=== PATIENT | female | born 1940 | race Caucasian/White ===

== ENCOUNTER → 2017-10-27 | Outpatient (CLI) | payer OTHER | END | disposition home or self-care (01) | LOC: OIH 14:34 | PROVIDERS: ATTEND Internal Medicine Cardiovascular Disease | DX: Z13.6 Encounter for screening for cardiovascular disorders (principal) | CPT/HCPCS: 75571 ==

== ENCOUNTER → 2024-03-24 | Outpatient (CLI) | payer MEDICARE ==
[~2024-03-24] MED LIST: IOHEXOL 350 MG/ML 100ML INFUS..BTL IV ONE; metoPROLOL tartRATE 1 MG/ML 5ML VIAL IV ONE
== END | disposition home or self-care (01) ==
LOC: RAH 08:02
PROVIDERS: ATTEND Internal Medicine Cardiovascular Disease
DX: R06.02 Shortness of breath (principal)
CPT/HCPCS: 75574; J3490; Q9967

== ENCOUNTER → 2024-08-23 | Outpatient (CLI) | payer MEDICARE ==
[2024-08-23 08:01] LABS: BASOPHILS # (AUTO) 0.07 K/uL (0.00-0.20); EOSINOPHILS # (AUTO) 0.09 K/uL (0.00-0.70); EOSINOPHILS % (AUTO) 1.3 % (0.0-8.0); HEMATOCRIT 45.8 % (36-48); IMMATURE GRANULOCYTE ABSOLUTE 0.01 K/uL (0-1); LYMPHOCYTES # (AUTO) 1.5 K/uL (1.0-4.8); LYMPHOCYTES % (AUTO) 21.8 % (21.0-51.0); MEAN CORPUSCULAR HEMOGLOBIN 30.5 pg (27.0-33.0); MEAN CORPUSCULAR HGB CONC 33.2 g/dL (32.0-36.0); MEAN CORPUSCULAR VOLUME 91.8 fL (79-99); MONOCYTES # (AUTO) 0.5 K/uL (0.1-1.0); MONOCYTES % (AUTO) 7.8 % (3.0-13.0); NEUTROPHILS # (AUTO) 4.7 K/uL (1.8-7.7); PLATELET COUNT (AUTO) 113 K/uL (130-400); RED BLOOD CELL COUNT(AUTO) 4.99 MIL/uL (4.00-5.50); RED CELL DISTRIBUTION WIDTH 13.1 % (11.0-15.5)
[2024-08-23 08:17] LABS: HEMOGLOBIN A1C 5.6 % (4.0-6.0)
[2024-08-23 08:22] LABS: ALBUMIN 3.5 g/dL (3.5-5.0); BILIRUBIN,DIRECT 0.1 mg/dL (0.0-0.3); BILIRUBIN,TOTAL 0.5 mg/dL (0.2-1.0); CREATININE 0.7 mg/dL (0.5-1.0); POTASSIUM 3.6 mmol/L (3.5-5.1); THYROID STIMULATING HORMONE 18.29 uIU/mL (0.36-3.74); TOTAL PROTEIN, SERUM 8.1 g/dL (6.0-8.3)
== END | disposition home or self-care (01) ==
LOC: LAB 07:27
PROVIDERS: ATTEND Internal Medicine Endocrinology, Diabetes & Metabolism
DX: C73 Malignant neoplasm of thyroid gland (principal); I10 Essential (primary) hypertension; E78.2 Mixed hyperlipidemia; R06.02 Shortness of breath; R73.09 Other abnormal glucose
CPT/HCPCS: 36415; 80053; 80061; 80076; 83036; 84439; 84443; 85025; 86800

== ENCOUNTER → 2024-08-25 | Outpatient (CLI) | payer MEDICARE ==
[~2024-08-25] MED LIST changes: +GADOTERATE MEGLUMINE 10 MMOL/20 ML VIAL IV ONE; -IOHEXOL 350 MG/ML 100ML INFUS..BTL IV ONE; -metoPROLOL tartRATE 1 MG/ML 5ML VIAL IV ONE
--- NOTE | 2024-08-25 15:59 | HMCIMG ---
MRI LEFT HINDFOOT/ANKLE WITHOUT AND WITH CONTRAST INDICATION: Localized mass/lump left ankle. COMPARISON: None TECHNIQUE: Long and short axis fat and water weighted sequences were obtained through the left ankle before and after the intravenous administration of 15 mL of Clariscan contrast material. FINDINGS: High ankle ligaments appear unremarkable. Anterior and posterior talofibular ligaments are intact. Deltoid ligament complex appears normal. Calcaneofibular ligament is intact. Abnormal coalescent high signal abnormality noted within the distal posterior tibial tendon at its navicular attachment as well as plantar slip medial navicular bone attachment (total length of involvement = 3.5 cm), and discrete subcentimeter interstitial linear high signal abnormality is present centrally within the navicular bone attachment fibers and more coalescent-appearing 3.0 cm long linear high signal within the central fibers of the plantar slip. Mild subjacent medial navicular bone reactive marrow edema without avulsion fracture. Trace subsheath fluid along the anterior tibialis tendon near the level of the navicular bone without subjacent tendinopathy or tear. Trace subsheath fluid along the supramalleolar medial tendon group without tendinopathy or tear. Trace subsheath fluid along a short-segment of the inframalleolar lateral tendon group without subjacent tendinopathy or tear. Posterior fibular groove is well formed. Generalized nominal midfoot osteoarthropathy. 1.8 cm aggregate of subcortical degenerative cysts along the superior/dorsal articular surface of the anterior calcaneal process, including extension into along the angle of the same, and similar changes on both sides of the anterior and posterior articular surfaces of the posteromedial talocalcaneal articulation. Achilles tendon and plantar fascia are intact. Kager's fat pad is well maintained. Subcentimeter plantar calcaneal spur without plantar fasciitis. Small joint effusion. No abnormal soft tissue mass or ganglion noted. Talar dome is intact without osteochondral lesion. Ankle mortise and tibial plafond are well maintained. Sinus canal is patent. No evidence for coalition. No evidence for muscle atrophy or myoedema. No evidence for any abnormal enhancement. No evidence for fracture. IMPRESSION: 1. Coalescent insertional distal posterior tibial tendinopathy, including superimposed subcentimeter linear interstitial microtear within the central fibers of the navicular bone attachment and more coalescent linear signal alteration, perhaps evolving longitudinal tear through the plantar slip, without avulsion fracture. 2. Perhaps compensatory trace of sheath fluid involving the anterior, medial, and lateral tendon group as described. 3. Degenerative changes as described. 4. Small joint effusion.
== END | disposition home or self-care (01) ==
LOC: RAH 13:58
PROVIDERS: ATTEND Student in an Organized Health Care Education/Training Program
DX: M89.472 Other hypertrophic osteoarthropathy, left ankle and foot (principal); R22.42 Localized swelling, mass and lump, left lower limb
CPT/HCPCS: 73723; A9575

== ENCOUNTER → 2024-11-29 | Outpatient (CLI) | payer MEDICARE ==
[~2024-11-29] MED LIST changes: +AMLO-257 PO; +APIX5TAB PO; +ATOR40TA71 PO; +CELE-146 PO; +CETI10TA57 PO; +FLUT16H NS; -GADOTERATE MEGLUMINE 10 MMOL/20 ML VIAL IV ONE; +LEVO125C5 PO; +LISI40TA15 PO; +METO50TA18 PO; +PROM118S5 PO
[2024-11-29 10:52] LABS: INR 1.04 (0.85-1.15)
[2024-11-29 10:53] LABS: PARTIAL THROMBOPLASTIN TIME 30.2 SEC (26.3-35.5)
--- NOTE | 2024-11-29 11:30 | NUR ---
U/S GD LT BREAST BX PROCEDURE PERFORMED BY DR Josafat EVANGELISTA. PUNCTURE SITE LT BREAST AND PATIENT TOLERATED PROCEDURE WELL. SPECIMEN X 3 COLLECTED AND SENT TO LAB. TISSUE MARKER DEPLOYED AT END. END OF PROCEDURE AT 1110. BIOPSY NEEDLE REMOVED AND DRESSING APPLIED. NO BLEEDING NOTED. DISCHARGE INSTRUCTIONS GIVEN TO PATIENT AND VERBALIZED UNDERSTANDING. DISCHARGED VIA AMBULATORY AAO X3 WITH NO C/O PAIN.
--- NOTE | 2024-11-29 12:13 | HMCIMG ---
Ultrasound-guided breast biopsy HISTORY: Left breast 12:00 position lesion Case done by Dr. Frank TECHNIQUE: Informed consent was obtained after explaining the procedure and potential complications to the patient. Timeout performed. All elements of maximal sterile barrier technique, including hand hygiene and cutaneous antisepsis were used. The breast was prepped and draped in a sterile fashion. Local anesthesia was applied and under ultrasound guidance a needle introducer was advanced into the lesion. Then, 3 passes were made with a Bard 14-gauge coring needle. This was followed by placement of a metallic marker (clip). Completion images showed no hemorrhage. Sterile dressing applied. Patient tolerated the procedure well and was discharged home in good condition. Complications: None Blood loss: < 5 mL. IMPRESSION: Breast nodule core biopsy and marker placement.
== END | disposition home or self-care (01) ==
LOC: RAH 09:40
PROVIDERS: ATTEND Internal Medicine
DX: R92.8 Other abnormal and inconclusive findings on diagnostic imaging of breast (principal); N63.20 Unspecified lump in the left breast, unspecified quadrant; I48.91 Unspecified atrial fibrillation; D68.69 Other thrombophilia; I12.9 Hypertensive chronic kidney disease with stage 1 through stage 4 chronic kidney disease, or unspecified chronic kidney disease; N18.30 Chronic kidney disease, stage 3 unspecified; E03.9 Hypothyroidism, unspecified; E78.49 Other hyperlipidemia; N64.4 Mastodynia; Z79.01 Long term (current) use of anticoagulants; Z79.899 Other long term (current) drug therapy
CPT/HCPCS: 19083; 85610; 85730; 88361; 36415; 88305; 88342; 88341; A4215 ×2

== ENCOUNTER 2025-01-27 22:42 | Inpatient (IN) | payer MEDICARE ==
[~2025-01-27] VITALS: Ht 162.6 cm; Wt 72.4 kg
[~2025-01-27 22:42] MED LIST changes: -ATOR40TA71 PO; -CELE-146 PO; -FLUT16H NS; -LEVO125C5 PO; -METO50TA18 PO
--- NOTE | 2025-01-27 22:59 | NUR ---
UPON ARRIVAL TO ED, PATIENT NOTED TO HAVE [address] TO THE LEFT CHEST AREA POST LEFT SIDED MASTECTOMY. DRAINS PATENT. SURROUNDING SKIN CLEAN, DRY, AND INTACT. PT DENIES PAIN AT DRAIN SITES AT THIS TIME.
--- NOTE | 2025-01-27 22:59 | NUR ---
UPON ARRIVAL TO THE ED, PATIENT NOTED TO HAVE AN 16 FR INDWELLING MELARA CATHETER IN PLACE. MELARA TUBING PATENT AND DRAINING TO GRAVITY DRAINAGE BAG. URINE NOTED TO BE TEJAL. NO SIGNS OF LEAKAGE OR KINKING OF TUBING OBSERVED. PT DENIES ANY DISCOMFORT AT THIS TIME.
[2025-01-27 23:17] LABS: IMMATURE GRANULOCYTE ABSOLUTE 0.08 K/uL (0-1); NUCLEATED RED BLOOD CELLS 0.0 % (0.0-0.19); PLATELET COUNT (AUTO) 90 K/uL (130-400); RED BLOOD CELL COUNT(AUTO) 2.67 MIL/uL (4.00-5.50); RED CELL DISTRIBUTION WIDTH 17.4 % (11.0-15.5); WHITE BLOOD COUNT (AUTO) 8.7 K/uL (4.8-10.8)
[2025-01-27 23:23] LABS: CREATININE 0.5 mg/dL (0.5-1.0); GLOMERULAR FILTR. RATE CALC 91.0 mL/min (>90); GLUCOSE,RANDOM 114.0 mg/dL (70-105); SODIUM SERUM 136.0 mmol/L (136-145); UREA NITROGEN, BLOOD 9.0 mg/dL (7-18)
[2025-01-27 23:27] LABS: ASPARTATE AMINOTRANSFERASE 29.0 U/L (10-37); TOTAL PROTEIN, SERUM 5.5 g/dL (6.0-8.3)
--- NOTE | 2025-01-27 23:36 | ERN ---
General Chief Complaint: Sepsis Stated Complaint: FEVER, SOB, SWELLING TO L SHOULDER S/P MASTECTOMY Time Seen by MD: 22:55 Source: patient History of Present Illness Initial Comments 84-year-old female comes in with fever and tachycardia and was made a sepsis alert. She is about two weeks out from a bilateral mastectomy. She is complaining of left shoulder pain and weakness. Allergies: Coded Allergies: No Known Allergies (Unverified Allergy, Unknown, 12/10/24) Home Meds Reported Medications D-Methorphan Hb/Prometh HCl (Promethazine-Dm Syrup) 6.25 Mg-15 Mg/5 Ml Syrup, 5 ML PO Q4HPRN PRN for cough for 4 Days, #120 ML 0 Refills 12/10/24 Cetirizine HCl (Cetirizine HCl) 10 Mg Tablet, 10 MG PO DAILY, TAB 12/10/24 Apixaban (Eliquis) 5 Mg Tablet, 5 MG PO BID, TAB 12/10/24 Lisinopril (Lisinopril) 40 Mg Tablet, 40 MG PO DAILY, TAB 12/10/24 Amlodipine Besylate (Amlodipine Besylate) 5 Mg Tablet, 5 MG PO DAILY, TAB 12/10/24 Past Medical History Past Medical History: A-Fib, Arthritis, Cancer, Diabetes-Type II, GERD, High Cholesterol, Hypertension, Hypothyroid Medical History Other: BREAST CA,NEOPLASM OF THYROID,SLEEP APNEA Past Surgical History: Appendectomy, Hysterectomy, Other Surgical History Other: L MASTECTOMY, L KNEE REPLACEMENT,THYROIDECTOMY Constitutional: (+) fever, (+) malaise, (+) weakness EENTM: (-) eye pain, (-) blurred vision, (-) tearing, (-) double vision, (-) ear pain, (-) ear discharge, (-) nose pain, (-) nose congestion, (-) throat elysia n, (-) Throat swelling, (-) mouth pain, (-) tooth pain, (-) mouth swelling, (-) other documentation Respiratory: (-) cough, (-) orthopnea, (-) short of breath, (-) stridor, (-) wheezing, (-) other documentation Cardiovascular: (-) chest pain, (-) edema, (-) palpitations, (-) syncope, (-) dyspnea on exertion, (-) other documentation Gastrointestinal/Abdominal: (-) nausea, (-) vomiting, (-) diarrhea, (-) abdominal pain, (-) abdominal distention, (-) constipation, (-) rectal bleeding, (-) dark stool/melena, (-) other documentation Genitourinary: (-) vaginal discharge, (-) vaginal bleeding, (-) dysuria, (-) frequency, (-) hematuria, (-) pain, (-) other documentation Musculoskeletal: (-) Neck pain, (-) back pain, (-) Flank Pain, (-) joint pain, (-) joint swelling, (-) muscle pain, (-) muscle stiffness, (-) gout, (-) other documentation Neuro: (-) altered mental status, (-) headache, (-) syncope, (-) paralysis, (-) numbness, (-) seizure, (-) pre-existing deficit, (-) tremors, (-) weakness, (-) dizziness, (-) slurred speech, (-) vertigo, (-) other documentation Physical Exam General Appearance: (+) no apparent distress Orientation: (+) alert, (+) oriented x 3 Head/Face Trauma: No Eye: bilateral eye normal inspection, bilateral eye PERRL, bilateral eye EOMI Ear, Nose, Throat: (+) hearing grossly normal, (+) normal ENT inspection, (+) moist mucous membraine Ear, Nose, Throat Comment Patient has a rough voice. She relates it to a thyroidectomy surgery where the surgeon cut my vocal cords and then had to tie when off to my right side. 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 It feels like a hematoma that maybe infected from her mastectomy. Heart: (+) irregular Vascular: (+) no edema, (+) normal peripheral pulse Gastrointestinal: (+) soft, (+) non-tender, (+) bowel sound present Breast Exam Comment Status post bilateral mastectomy. Tail of left breast has a hematoma. Results Laboratory and Microbiology Lab and Micro Result Laboratory Tests Test 01/27/25 22:50 01/27/25 22:53 01/27/25 23:29 Influenza Type A Antigen Negative For Type A Influenza Type B Antigen Negative For Type B SARS-CoV-2 Antigen (Rapid) PRESUMPTIVE NEGATIVE Group A Streptococcus Rapid negative (NEGATIVE) White Blood Count 8.7 K/uL (4.8-10.8) Red Blood Count 2.67 MIL/uL (4.00-5.50) L Hemoglobin 8.1 g/dL (12.0-16.0) L Hematocrit 24.8 % (36-48) L Mean Corpuscular Volume 92.9 fL (79-99) Mean Corpuscular Hemoglobin 30.3 pg (27.0-33.0) Mean Corpuscular Hemoglobin Concent 32.7 g/dL (32.0-36.0) Red Cell Distribution Width 17.4 % (11.0-15.5) H Platelet Count 90 K/uL (130-400) L Mean Platelet Volume 11.9 fL (7.5-10.5) H Immature Granulocyte % (Auto) 0.9 % (0-1) Neutrophils (%) (Auto) 87.7 % (40.0-77.0) H Lymphocytes (%) (Auto) 3.5 % (21.0-51.0) L Monocytes (%) (Auto) 6.2 % (3.0-13.0) Eosinophils (%) (Auto) 1.5 % (0.0-8.0) Basophils (%) (Auto) 0.2 % (0.0-5.0) Neutrophils # (Auto) 7.6 K/uL (1.8-7.7) Lymphocytes # (Auto) 0.3 K/uL (1.0-4.8) L Monocytes # (Auto) 0.5 K/uL (0.1-1.0) Eosinophils # (Auto) 0.13 K/uL (0.00-0.70) Basophils # (Auto) 0.02 K/uL (0.00-0.20) Absolute Immature Granulocyte (auto 0.08 K/uL (0-1) Nucleated Red Blood Cells 0.0 % (0.0-0.19) Sodium Level 136 mmol/L (136-145) Potassium Level 3.3 mmol/L (3.5-5.1) L Chloride Level 101 mmol/L (101-111) Carbon Dioxide Level 28 mmol/L (21-32) Blood Urea Nitrogen 9 mg/dL (7-18) Creatinine 0.5 mg/dL (0.5-1.0) Glomerular Filtration Rate Calc 91 mL/min (>90) Random Glucose 114 mg/dL (70-105) H Lactic Acid Level 1.2 mmol/L (0.8-2.5) Total Calcium 8.3 mg/dL (8.5-10.1) L Total Bilirubin 1.0 mg/dL (0.2-1.0) Aspartate Amino Transf (AST/SGOT) 29 U/L (10-37) Alanine Aminotransferase (ALT/SGPT) 21 U/L (12-78) Alkaline Phosphatase 68 U/L (50-136) Troponin I High Sensitivity 8 ng/L (4-50) B-Type Natriuretic Peptide 139 pg/mL (0-100) H Total Protein 5.5 g/dL (6.0-8.3) L Albumin 2.4 g/dL (3.5-5.0) L Procalcitonin 0.20 ng/mL (0.05-0.5) Urine Color YELLOW (YELLOW) Urine Appearance CLEAR (CLEAR) Urine pH 6.0 (5.0-8.0) Urine Specific [place] 1.016 (1.001-1.031) Urine Protein 20 mg/dL (NEGATIVE) H Urine Glucose (UA) NEGATIVE mg/dL (NEGATIVE) Urine Ketones NEGATIVE mg/dL (NEGATIVE) Urine Occult Blood SMALL (NEGATIVE) H Urine Nitrate NEGATIVE (NEGATIVE) Urine Bilirubin NEGATIVE mg/dL (NEGATIVE) Urine Urobilinogen 0.2 mg/dL (0.2-1.0) Urine Leukocyte Esterase NEGATIVE Nain/uL Urine RBC 26-50 /HPF (0-1) H Urine WBC 2-5 /HPF (0-1) H Urine Squamous Epithelial Cells RARE /HPF (0-2) Urine Bacteria None /HPF (None Seen) MDM Patient febrile tachycardic. MDM: Differential diagnosis: Sepsis alert. UTI infected hematoma pneumonia septicemia respiratory tract infection Rationale: Tests considered and ordered secondary to shared decision making include: Previous outside records reviewed: Old ER visits. Risk of complication and/or morbidity or mortality of patient management: None Medications-Per medication reconciliation Need for hospitalization: Patient does meet criteria for hospitalization. Need for emergency major/minor surgery: No There are no social concerns with this patient. Prescription drug management Prescriptions will include symptomatic care Patient's prior external medical records from other ER visits were reviewed by me as indicated. Prior testing and results from previous visits were reviewed. Prior tests were taken into account with medical decision making and resource utilization, independent historian/historians were used to obtain complete medical history. I independently interpreted the test that were performed, results were reviewed by me and considered findings on radiology if ordered. Patient has a normal white count but it seems there is a left shift. Her chemistry panel is normal except for a potassium of 3.3. The CT scan for the patient's chests shows a large hematoma in her mastectomy site. The mastectomy site is warm to the touch which is consistent with a hematoma but it could also mean infection. Patient did come into the hospital very febrile and tachycardic. I have given her a g of Ancef. I have called to her cell he is office and her partner's to discuss the patient but I was unable to reach them. Therefore I called the hospital surgeon on-call and he agreed to admit the patient. The hospitalist has a admitted the patient. ED Course Orders Procedure Category Date Status Time 12 Lead Ekg Tracing- EKG 01/27/25 Logged Technical 22:54 B-Type Natriuretic LAB 01/27/25 Complete Peptide 23:00 Comprehensive LAB 01/27/25 Complete Metabolic Panel 23:00 Cbc With Differential LAB 01/27/25 Complete 23:00 Lactic Acid LAB 01/27/25 Complete 23:00 Procalcitonin LAB 01/27/25 Complete 23:00 Urinalysis Profile LAB 01/27/25 Complete 23:00 Covid19 (Sars Antigen LAB 01/27/25 Complete Rapid) 23:00 Influenza Type A & B, LAB 01/27/25 Complete Rapid 23:00 Rapid (Group A Strep) LAB 01/27/25 Complete 23:00 Chest 1vw RAD 01/27/25 Resulted 23:00 Lactated Ringers PHA 01/27/25 Complete 1000ml (Lactated 23:05 Troponin I High LAB 01/27/25 Complete Sensitivity 23:05 Ct Chest W/Contrast CT 01/28/25 Resulted 00:45 Iohexol (Omnipaque) PHA 01/28/25 Complete 01:27 Cefazolin Sodium 1 Gm PHA 01/28/25 Complete Vial (Ancef 1 Gm V 02:45 Admit Orders ADM 01/28/25 Transmitted 05:18 Blood Cult LILIANA 01/28/25 Logged 05:18 Pt And Ptt LAB 01/28/25 Logged 05:18 Type And Screen BBK 01/28/25 Logged 05:18 Initiate Npo JOSELIN 01/28/25 In Process Hypokalemia Ignacio 05:18 Potassium Chloride PHA 01/28/25 In Process 20meq/100ml ([place] 05:30 Notify Physician If CPOE 01/28/25 Transmitted There Is 05:18 Notify Md On The Next CPOE 01/28/25 Transmitted 05:18 Notify Md On The CPOE 01/28/25 Transmitted Next(Cont.) 05:18 Basic Metabolic Panel LAB 01/29/25 Verified 04:00 Cbc With Differential LAB 01/29/25 Verified 04:00 Magnesium LAB 01/29/25 Verified 04:00 Phosphorus LAB 01/29/25 Verified 04:00 Activity: Ad Altagracia CPOE 01/28/25 Transmitted 05:18 Apply Knee High Teds CPOE 01/28/25 Transmitted 05:18 Apply Scds CPOE 01/28/25 Transmitted 05:18 Condition: CPOE 01/28/25 Transmitted 05:18 Nurse To Enter Home CPOE 01/28/25 Transmitted Medication 05:18 Oxygen By Nc/Pulse Ox CPOE 01/28/25 Transmitted 05:18 Telemetry Monitoring CPOE 01/28/25 Transmitted 05:18 Vital Signs(Adult CPOE 01/28/25 Transmitted Hospitalist) 05:18 Npo Except For Meds CPOE 01/28/25 Transmitted 05:18 Acetaminophen 325 Tab PHA 01/28/25 In Process (Tylenol 325mg Tab 05:30 Famotidine 20mg Tab PHA 01/28/25 In Process (Pepcid 20mg Tab) 09:00 Hydralazine 20mg Inj PHA 01/28/25 In Process (Apresoline 20mg In 05:30 Lactated Ringers PHA 01/28/25 In Process 1000ml (Lactated 05:30 Ondansetron 4mg Inj PHA 01/28/25 In Process (Zofran 4mg Inj) 05:30 Morphine 2mg Syg PHA 01/28/25 In Process (Morphine 2mg Syg) 05:30 Current Medications Medications (Trade) Dose Ordered Sig/Rex Route PRN Reason Start Time Stop Time Status Last Admin Dose Admin Acetaminophen (TYLenol 325MG TAB) 650 mg Q6H PRN PO TEMPERATURE GREATER THAN 101.5 01/28/25 05:30 02/27/25 05:29 Cefazolin Sodium (ANCEF 1 gm vial) 1 gm ONCE STAT IVP 01/28/25 02:45 01/28/25 02:48 DC 01/28/25 03:11 Famotidine (Pepcid 20mg Tab) 20 mg DAILY PO 01/28/25 09:00 02/27/25 08:59 Hydralazine HCl (APRESOLine 20MG INJ) 10 mg Q6H PRN IV For:SBP above 160;DBP above 90 01/28/25 05:30 02/27/25 05:29 Iohexol (Omnipaque) 50 ml STK-MED ONCE IV 01/28/25 01:27 01/28/25 01:28 DC Lactated Ringer's 1,000 ml @ 75 mls/hr [id number] IV 01/28/25 05:30 02/27/25 05:29 Lactated Ringer's (Lactated Ringers 1000ml) 2,000 ml BOLUS STAT IV 01/27/25 23:05 01/27/25 23:09 DC 01/28/25 00:18 Morphine Sulfate (morPHINE 2MG SYG) 2 mg Q4H PRN IVP SEVERE PAIN (7-10) 01/28/25 05:30 02/04/25 05:29 Ondansetron HCl (zoFRAN 4MG INJ) 4 mg Q6H PRN IV NAUSEA/VOMITING 01/28/25 05:30 02/27/25 05:29 Potassium Chloride 100 ml @ 50 mls/hr AD PRN IV POTASSIUM PROTOCOL 01/28/25 05:30 02/27/25 05:29 Vital Signs Date Time Temp Pulse Resp B/P (MAP) Pulse Ox O2 Delivery O2 Flow Rate FiO2 01/28/25 03:57 91 13 127/62 100 Room Air* 0 01/28/25 02:47 100 17 114/59 98 Room Air* 0 01/28/25 01:40 98 18 103/71 98 Room Air* 0 01/28/25 00:50 98.8 100 15 116/59 98 Room Air* 0 01/27/25 22:59 100.6 112 20 107/69 98 Room Air* 0 01/27/25 22:45 100.8 115 17 112/65 98 Room Air 0 DX & DISP Disposition: Inpatient Departure Impression: Primary Impression: Infected hematoma Additional Impression: Postoperative hematoma Condition: Stable Referrals: KARRIE CRAWFORD MD (PCP) SABINE TRIANA MD Jan 27, 2025 23:36
[2025-01-27 23:51] LABS: APPEARANCE,URINE CLEAR (CLEAR); GLUCOSE, URINE (UA) NEGATIVE (NEGATIVE); LEUKOCYTE ESTERASE ,URINE NEGATIVE Leu/uL (NEGATIVE); NITRATE,URINE NEGATIVE (NEGATIVE); OCCULT BLOOD,URINE SMALL (NEGATIVE)
[2025-01-27 23:52] LABS: ADD UA MICROSCOPIC YES
[2025-01-27 23:53] LABS: SQUAMOUS EPITHELIAL CELL,UR RARE /HPF (0-2)
[2025-01-28 00:01] LABS: RAPID GROUP A STREP negative (NEGATIVE)
[2025-01-28 00:11] LABS: COVID19 (SARS ANTIGEN RAPID) PRESUMPTIVE NEGATIVE (NEGATIVE); INFLUENZA TYPE A Negative For Type A (NEGATIVE); INFLUENZA TYPE B Negative For Type B (NEGATIVE)
[2025-01-28] MEDS: LACTATED RINGERS 1000ML IV STA (00:18)
--- NOTE | 2025-01-28 00:18 | NUR ---
PER ED MD TRIANA 1 IV BOLUS IS TO BE GIVEN NOT THE ORDERED 2.
--- NOTE | 2025-01-28 00:34 | HMCIMG ---
EXAM: CR Chest, 1 view CLINICAL HISTORY: Cough. COMPARISON: Chest radiograph dated 01/21/2025. FINDINGS: Mild cardiomegaly. Mild atherosclerotic aorta. No acute infiltrate, effusion, or pneumothorax. No acute osseous abnormality. IMPRESSION: Mild cardiomegaly. No acute infiltrate, effusion, or pneumothorax. No gross interval changes. /[place]
[2025-01-28] MEDS ORDERED: IOHEXOL-350 50ML VIAL IV ONE (01:27)
--- NOTE | 2025-01-28 03:27 | HMCIMG ---
EXAM: Post-contrast CT examination of the chest CLINICAL HISTORY: Pain. TECHNIQUE: Postcontrast thin collimated axial CT images of the chest were obtained, with sagittal and coronal reformatted images also submitted. A CT scan is done according to ALARA (As Low as Reasonably Achievable). COMPARISON: CT chest dated 01/21/2025. FINDINGS: Trace pleural effusions and lower lobe compressive atelectasis bilaterally. Scattered pulmonary nodules, the largest measuring up to 5 mm in the left lingula. No pneumothorax. No pericardial effusion. The cardiac size is within normal limits. Calcific atherosclerotic disease in the thoracic aorta and coronary arteries. 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 The pulmonary artery is normal in caliber. No mediastinal, axillary, or supraclavicular lymphadenopathy. 1.5 cm cortical cyst in the left renal midpole. Tiny hiatus hernia. No acute bony abnormality is evident. Old healed fracture around the anterior aspect of the left 3rd, 4th, 5th, and 6th ribs. Degenerative osseous changes. There is a large soft tissue hematoma in the left anterior chest wall, involving the left pectoralis major muscle and subcutaneous layer, with drainage tubes in place. It hematoma measures 5 x 19 x 19 cm in the anterior-posterior, transverse, and craniocaudal dimensions, respectively. IMPRESSION: There is a large soft tissue hematoma in the left anterior chest wall, involving the left pectoralis major muscle and subcutaneous layer, with drainage tubes in place. Mild interval reduction in size of this hematoma compared to the previous CT dated 01/21/2025. The remaining findings are grossly unchanged. Trace pleural effusions and lower lobe compressive atelectasis bilaterally. Scattered pulmonary nodules, the largest measuring up to 5 mm in the left lingula. Recommended follow-up CT chest at 12 months. 1.5 cm cortical cyst in the left renal midpole. Tiny hiatus hernia. 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 Old healed fracture around the anterior aspect of the left 3rd, 4th, 5th, and 6th ribs. /[place]
--- NOTE | 2025-01-28 05:22 | HP ---
History of Present Illness Reason for Visit: fever History of Present Illness Ms. Colby is an 84-year-old female that was seen and examined today on 01/28/2025. Patient presented to the emergency department with a chief complaint of fever. Onset was two weeks ago. Location is head. Duration is on and off. Character is described as feeling hot. There was no alleviating factors. Patient believes symptoms are aggravated by recent mastectomy. Patient reports associated left shoulder pain and weakness. Patient was admitted to this hospital one week ago on 01/21/2025 and was subsequently transferred to [facility] where she could be followed by her surgeon, Dr. Vee group performed in the mastectomy. Today Dr. Santana accepts surgical consult on this patient. Today in the emergency department CBC unremarkable, potassium 3.3, urinalysis unremarkable, influenza screen is negative, COVID screen is negative, group a strep rapid testing is negative. Chest x-ray shows no acute infiltrate, effusion or pneumothorax. CT of the chest shows large soft tissue hematoma in the left anterior chest wall involving the left pectoralis major muscle and subcutaneous there. With the drainage tubes in place. Trace pleural effusions and lower lobe compressive atelectasis bilaterally. Scattered pulmonary nodules. Past Medical History ADDITIONAL PAST MEDICAL HISTORY: [AFib on chronic anticoagulation with Eliquis, thyroid cancer 2016, cystic ankle tumor, left breast alone status post biopsy in 2024, arthritis, hypertension, hyperlipidemia SOCIAL HISTORY: [Negative for smoking, alcohol use, drug use] SURGICAL HISTORY: [Thyroidectomy 2017 , left knee replacement, mastectomy] Review of Systems General: Fever; No Chills, No Night Sweats, No Fatigue, No Malaise, No Appetite, No Other HEENT: No Head Aches, No Visual Changes, No Eye Pain, No Ear Pain, No Dysphasia, No Sinus Congestion, No Post Nasal Drip, No Sore Throat, No Other Pulmonary: No Dyspnea, No Cough, No Pleuritic Chest Pain, No Other Cardiovascular: No: Chest Pain, Palpitations, Orthopnea, Paroxysmal Noc. Dyspnea, Edema, Lt Headedness, Other Gastrointestinal: No: Nausea, Vomiting, Abdominal Pain, Diarrhea, Constipation, Melena, Hematochezia, Other Genitourinary: No Dysuria, No Frequency, No Incontinence, No Hematuria, No Retention, No Other Musculoskeletal: arm pain; No: other, neck pain, shoulder pain, back pain, hand pain, leg pain, foot pain Skin: No Urticaria, No Rash, No Other Neurological: No: Weakness, Numbness, Incoordination, Change in speech, Confusion, Seizures, Other Allergies: Coded Allergies: No Known Allergies (Unverified Allergy, Unknown, 12/10/24) Scheduled Amlodipine Besylate (Amlodipine Besylate), 5 MG PO DAILY, (Reported) Apixaban (Eliquis), 5 MG PO BID, (Reported) Cetirizine HCl (Cetirizine HCl), 10 MG PO DAILY, (Reported) Lisinopril (Lisinopril), 40 MG PO DAILY, (Reported) Scheduled PRN D-Methorphan Hb/Prometh HCl (Promethazine-Dm Syrup), 5 ML PO Q4HPRN PRN for cough, (Reported) Exam Vital Signs Vital Signs Date Time Temp Pulse Resp B/P (MAP) Pulse Ox O2 Delivery O2 Flow Rate FiO2 01/28/25 03:57 91 13 127/62 100 Room Air* 0 21 01/28/25 00:50 98.8 General Appearance: Alert, Oriented X3, Cooperative, mild distress HEENT: Atraumatic, EOMI Respiratory: Other (Diminished air entry to bilateral lower lobes) Cardiovascular: Normal S1, Normal S2, Other (Tachycardia) Abdominal: Normal bowel sounds, Soft, No tenderness Extremities: No edema, No tenderness/swelling Skin: Other (JUANITO drain in place two chest, positive surgical incision, positive bruising) Neuro: Strength at 5/5 X4 ext, Sensation intact, Cranial nerves 3-12 NL Psych/Mental Status: Mental status NL, Mood NL, Thoughts/Content NL Assessment/Plan ASSESSMENT: [ Sepsis, POA Left chest wall hematoma, POA Hypokalemia, POA Bilateral pleural effusions, POA AFib on chronic anticoagulation with Eliquis, thyroid cancer hypertension hyperlipidemia PLAN: [ Admit patient to medical floor as inpatient status. Place patient on telemetry monitoring. Fluid resuscitation with lactated Ringer's 30 mL/kg Empiric antibiotic therapy with Zosyn. Check procalcitonin, follow up with the results. Reviewed patient's lactic acid which was unremarkable. Check blood culture, follow up with the results. Reviewed patient's urinalysis which was unremarkable. Reviewed patient's CT of the chest that shows left chest wall hematoma and pleural effusions. Patient will be followed by General surgery Service Dr. Santana Keep patient NPO except for meds. IV fluid maintenance therapy lactated Ringer's 75 mL/HR. As needed analgesia with morphine. JUANITO drain to bulb suction Replace potassium per hospital protocol Supplemental oxygen to maintain O2 saturation greater 92%. Check preprocedure labs, CBC, BMP, magnesium, phosphorus, PTT, UA, type and screen, EKG, CXR Consider resuming home medications once they have been reconciled. At time of admission home medications have not been reconciled. For now: Metoprolol 12.5 mg by mouth twice daily. Hold patient's DOAC at this time due to known hematoma resume DOAC when recommended by General surgery Service Consider consulting Oncology Service Hydralazine 10 mg IV every 4 hours for systolic blood pressure greater than 160 mmHg Atorvastatin 40 mg by mouth once daily GI prophylaxis, famotidine DVT prophylaxis, Efrain's and SCDs ADVANCED CARE PLANNING 1. Which of the following were discussed? Hospice Care - Yes Therapeutic options - yes Advance Directives - Yes Other discussions - patient wishes to remain a full code at this time 2. Discussed with who? Patient 3. Voluntary nature of this service was explained to the patient? Yes 4. Amount of time spent - ___16 minutes____ 5. Reviewed by Physician? (if this service was performed by NPP) Yes This document was generated in part using voice recognition software, occasional wrong word or sound alike substitutions may have occurred due to the inherent limitations of voice recognition software. Read the chart carefully and recognize using context, where the substitutions have occurred. Although every effort was made to edit the content, muskrat trapper and typing errors may occur ATTESTATION BY PHYSICIAN I have seen and examined the patient. I reviewed the documentation, medical decision making, and treatment plan as noted by the mid-level provider above. I agree with the findings and plan of care.] GRACE ZAVALETA PODIATRIST ASSISTANT Jan 28, 2025 05:22
[2025-01-28] MEDS: LACTATED RINGERS IV ONE (06:23)
--- NOTE | 2025-01-28 07:10 | NUR ---
REPORT GIVEN TO BREANN PORTER AT THIS TIME
[2025-01-28 07:49] LABS: INR 1.06 (0.85-1.15)
--- NOTE | 2025-01-28 08:03 | PN ---
[facility] PROGRESS NOTE Date of Service: Jan 28, 2025 Time of Service: 07:54 SUBJECTIVE: 01/28/25 - Patient seen at bedside in ED 10 with daughter. Patient afebrile and saturating well on room air. Patient is comfortable and in no acute distress. Urinalysis shows proteinuria, small occult blood, negative for leukocytes and nitrates. Remarkable labs: white count within normal limits, hemoglobin 8.1, platelets 90K, potassium 3.3 - replacement protocol in place, BUN 9, creatinine 0.98. Pending surgery recommendations. Pending Cardiology recommendations for continuing anticoagulation in the setting of patient left hematoma. REVIEW OF SYSTEMS CONSTITUTIONAL: Denies fevers, chills, or night sweats. No unintentional weight loss reported. NEUROLOGICAL: Denies headache, amaurosis fugax, motor weakness, sensory deficit, vertigo/spinning sensation, gait abnormalities, or tremors. ENT: No hearing loss, otalgia, otorrhea, rhinitis, rhinorrhea, hoarseness, or sore throat. CARDIOVASCULAR: Denies any exertional angina, dyspnea on exertion, orthopnea, paroxysmal nocturnal dyspnea, palpitations, life-threatening arrhythmias, claudication. PULMONARY: Denies any shortness of breath, cough, phlegm/sputum, hemoptysis, pleuritic chest pain. SLEEP: Denies morning headaches, daytime somnolence or napping. Denies difficulty falling asleep, staying asleep, waking from sleep. Denies knowledge of snoring. GASTROINTESTINAL: Denies any type of dysphagia to either liquids or solids. Denies nausea, vomiting, pyrosis, early satiety, abdominal pain, diarrhea, constipation, or changes in stool consistency or caliber. Denies coffee-ground emesis, hematemesis, hematochezia, or melanotic stools. GENITOURINARY: Denies frequency, urgency, nocturia, hematuria or incontinence (Storage/Irritative symptoms.) Low urinary stream, straining to void, urinary intermittency or hesitancy, splitting of the voiding stream, terminal dribbling. ENDOCRINOLOGIC: Denies polyuria, polydipsia, polyphagia or heat/cold intolerances. HEMATOLOGIC: Denies thrombophilia/previous clots, or coagulopathy/bleeding disorders. ONCOLOGIC: Denies personal history of malignancy. DERMATOLOGIC: Denies rashes or pruritus. PSYCHIATRIC: Denies any suicidal or homicidal ideation. Denies hallucinations. PHYSICAL EXAM GENERAL APPEARANCE: The patient is awake, alert, and oriented, in no acute cardiopulmonary distress. NEUROLOGICAL: Cranial nerves II-XII grossly intact. Motor is 5/5 in bilateral upper and lower extremities proximal to distal. No sensory deficits. HEENT: Face is symmetric. Pupils are equal and reactive. Extraocular movements are intact. NECK: Supple. No JVD. No thyromegaly. No submental, submandibular, pre- /postauricular, occipital or supraclavicular lymphadenopathy. CHEST: Normal chest expansion. No Telemetry. LUNGS: Absence of any rales, rhonchi or any wheezing. CARDIOVASCULAR: Regular. S1 and S2 normal. No appreciable rubs, murmurs or gallops. ABDOMEN: Soft, nontender, and nondistended. There is no rebound, voluntary guarding, or rigidity. : Deferred. No Mccray. EXTREMITIES: Non-edematous and not cyanotic. No clubbing. Good capillary refill. SKIN: No skin breakdown. Vital Signs (last 8hr) Date Time Temp Pulse Resp B/P (MAP) Pulse Ox O2 Delivery O2 Flow Rate FiO2 01/28/25 06:45 89 14 129/71 100 Room Air* 0 21 01/28/25 03:57 91 13 127/62 100 Room Air* 0 21 01/28/25 02:47 100 17 114/59 98 Room Air* 0 21 01/28/25 01:40 98 18 103/71 98 Room Air* 0 21 01/28/25 00:50 98.8 100 15 116/59 98 Room Air* 0 21 LABS: Laboratory: Test 01/28/25 07:24 01/27/25 23:29 01/27/25 22:53 01/27/25 22:50 Range/Units Prothrombin Time 11.2 9.6-11.6 SEC Prothromb Time International Ratio 1.06 0.85-1.15 Activated Partial Thromboplast Time 26.6 26.3-35.5 SEC Urine Color YELLOW YELLOW Urine Appearance CLEAR CLEAR Urine pH 6.0 5.0-8.0 Urine Specific [place] 1.016 1.001-1.031 Urine Protein 20 H NEGATIVE mg/dL Urine Glucose (UA) NEGATIVE NEGATIVE mg/dL Urine Ketones NEGATIVE NEGATIVE mg/dL Urine Occult Blood SMALL H NEGATIVE Urine Nitrate NEGATIVE NEGATIVE Urine Bilirubin NEGATIVE NEGATIVE mg/dL Urine Urobilinogen 0.2 0.2-1.0 mg/dL Urine Leukocyte Esterase NEGATIVE NEGATIVE Nain/uL Urine RBC 26-50 H 0-1 /HPF Urine WBC 2-5 H 0-1 /HPF Urine Squamous Epithelial Cells RARE 0-2 /HPF Urine Bacteria None None Seen /HPF White Blood Count 8.7 4.8-10.8 K/uL Red Blood Count 2.67 L 4.00-5.50 MIL/uL Hemoglobin 8.1 L 12.0-16.0 g/dL Hematocrit 24.8 L 36-48 % Mean Corpuscular Volume 92.9 79-99 fL Mean Corpuscular Hemoglobin 30.3 27.0-33.0 pg Mean Corpuscular Hemoglobin Concent 32.7 32.0-36.0 g/dL Red Cell Distribution Width 17.4 H 11.0-15.5 % Platelet Count 90 L 130-400 K/uL Mean Platelet Volume 11.9 H 7.5-10.5 fL Immature Granulocyte % (Auto) 0.9 0-1 % Neutrophils (%) (Auto) 87.7 H 40.0-77.0 % Lymphocytes (%) (Auto) 3.5 L 21.0-51.0 % Monocytes (%) (Auto) 6.2 3.0-13.0 % Eosinophils (%) (Auto) 1.5 0.0-8.0 % Basophils (%) (Auto) 0.2 0.0-5.0 % Neutrophils # (Auto) 7.6 1.8-7.7 K/uL Lymphocytes # (Auto) 0.3 L 1.0-4.8 K/uL Monocytes # (Auto) 0.5 0.1-1.0 K/uL Eosinophils # (Auto) 0.13 0.00-0.70 K/uL Basophils # (Auto) 0.02 0.00-0.20 K/uL Absolute Immature Granulocyte (auto 0.08 0-1 K/uL Nucleated Red Blood Cells 0.0 0.0-0.19 % Sodium Level 136 136-145 mmol/L Potassium Level 3.3 L 3.5-5.1 mmol/L Chloride Level 101 101-111 mmol/L Carbon Dioxide Level 28 21-32 mmol/L Blood Urea Nitrogen 9 7-18 mg/dL Creatinine 0.5 0.5-1.0 mg/dL Glomerular Filtration Rate Calc 91 >90 mL/min Random Glucose 114 H 70-105 mg/dL Lactic Acid Level 1.2 0.8-2.5 mmol/L Total Calcium 8.3 L 8.5-10.1 mg/dL Total Bilirubin 1.0 0.2-1.0 mg/dL Aspartate Amino Transf (AST/SGOT) 29 10-37 U/L Alanine Aminotransferase (ALT/SGPT) 21 12-78 U/L Alkaline Phosphatase 68 50-136 U/L Troponin I High Sensitivity 8 4-50 ng/L B-Type Natriuretic Peptide 139 H 0-100 pg/mL Total Protein 5.5 L 6.0-8.3 g/dL Albumin 2.4 L 3.5-5.0 g/dL Procalcitonin 0.20 0.05-0.5 ng/mL Influenza Type A Antigen Negative For Type A NEGATIVE Influenza Type B Antigen Negative For Type B NEGATIVE SARS-CoV-2 Antigen (Rapid) PRESUMPTIVE NEGATIVE NEGATIVE Group A Streptococcus Rapid negative NEGATIVE Current Medications Medications (Trade) Dose Ordered Sig/Rex Route PRN Reason Start Time Stop Time Status Last Admin Dose Admin Acetaminophen (TYLenol 325MG TAB) 650 mg Q6H PRN PO TEMPERATURE GREATER THAN 101.5 01/28/25 05:30 02/27/25 05:29 Atorvastatin Calcium (LIPItor 40MG) 40 mg HS PO 01/28/25 21:00 02/27/25 20:59 Cefazolin Sodium (ANCEF 1 gm vial) 1 gm ONCE STAT IVP 01/28/25 02:45 01/28/25 02:48 DC 01/28/25 03:11 1 GM Famotidine (Pepcid 20mg Tab) 20 mg DAILY PO 01/28/25 09:00 02/27/25 08:59 Hydralazine HCl (APRESOLine 20MG INJ) 10 mg Q6H PRN IV For:SBP above 160;DBP above 90 01/28/25 05:30 02/27/25 05:29 Lactated Ringer's 1,000 ml @ 75 mls/hr [id number] IV 01/28/25 05:30 02/27/25 05:29 Lactated Ringer's (Lactated Ringers 1000ml) 2,000 ml BOLUS STAT IV 01/27/25 23:05 01/27/25 23:09 DC 01/28/25 00:18 2,000 ML Metoprolol Tartrate (loprESSOR) 12.5 mg BID PO 01/28/25 09:00 02/27/25 08:59 Morphine Sulfate (morPHINE 2MG SYG) 2 mg Q4H PRN IVP SEVERE PAIN (7-10) 01/28/25 05:30 02/04/25 05:29 Ondansetron HCl (zoFRAN 4MG INJ) 4 mg Q6H PRN IV NAUSEA/VOMITING 01/28/25 05:30 02/27/25 05:29 Potassium Chloride 100 ml @ 50 mls/hr AD PRN IV POTASSIUM PROTOCOL 01/28/25 05:30 02/27/25 05:29 DIAGNOSTICS / RADIOLOGY: [ ] ASSESSMENT: Sepsis, POA Left chest wall hematoma, POA Hypokalemia, POA Bilateral pleural effusions, POA AFib on chronic anticoagulation with Eliquis, history of thyroid cancer hypertension hyperlipidemia PLAN: Fluid resuscitation with lactated Ringer's 30 mL/kg Empiric antibiotic therapy with Zosyn. Check blood culture, follow up with the results. Reviewed patient's urinalysis which was unremarkable. Reviewed patient's CT of the chest that shows left chest wall hematoma and pleural effusions. Patient will be followed by General surgery Service Dr. Santana Keep patient NPO except for meds. IV fluid maintenance therapy lactated Ringer's 75 mL/HR. As needed analgesia with morphine. JUANITO drain to bulb suction Replace potassium per hospital protocol Supplemental oxygen to maintain O2 saturation greater 92%. Check preprocedure labs, CBC, BMP, magnesium, phosphorus, For now: Metoprolol 12.5 mg by mouth twice daily. Hold patient's DOAC at this time due to known hematoma resume DOAC when recommended by General surgery Service Consider consulting Oncology Service Hydralazine 10 mg IV every 4 hours for systolic blood pressure greater than 160 mmHg Atorvastatin 40 mg by mouth once daily GI prophylaxis, famotidine DVT prophylaxis, Efrain's and SCDs ATTESTATION BY PHYSICIAN I have seen and examined the patient. I reviewed the documentation, medical decision making, and treatment plan as noted by the resident provider above. I agree with the findings and plan of care. Leonides Tate IV, MD, PRIYA N Jan 28, 2025 08:03
--- NOTE | 2025-01-28 08:06 | EKG ---
[facility] Test Date: 2025-01-27 Test Time: 22:49:26 Pat Name: CLAIRE JAMES Department: [facility] Room: 422 Gender: F Supervisory Clerk: [id number] : [id number] Requested By: MECHELLE WEIR Order Number: [id number] Reading MD: Roger Schmitt Measurements Intervals [place] Rate: 127 P: -45 NM: 157 QRS: -19 QRSD: 90 T: -25 QT: 342 QTc: 494 Interpretive Statements Sinus tachycardia with irregular rate Low voltage, precordial leads Anteroseptal infarct, age indeterminate Compared to ECG 01/21/2025 13:50:01 Myocardial infarct finding now present Atrial fibrillation no longer present Ventricular premature complex(es) no longer present T-wave abnormality no longer present Electronically Signed On 01-28-2025 16:04:20 CDT by Roger Schmitt Please click the below link to view image of tracing.
[2025-01-28] MEDS: FAMOTIDINE 20MG TAB PO SCH (08:35)
[2025-01-28] MEDS: LACTATED RINGERS 1000ML 1,000 ML IV SCH (08:36)
--- NOTE | 2025-01-28 09:20 | NUR ---
MET WITH PT AND FAMILY MEMBER INFORM OF SURGERY TO BE DONE TODAY, QUESTIONS ANSWER TO BEST OF MY KNOWLEDGE VERBALIZED UNDERSTANDING . PRIMARY NURSE MADE AWARE. CABRERA PORTER
--- NOTE | 2025-01-28 11:09 | NUR ---
CALLED TO GIVE REPORT, PER RIVERA SHAY, NURSE KESSLER IS BUSY DISCHARGING A PATIENT AND WILL CALL BACK FOR REPORT TO EXT [phone].
--- NOTE | 2025-01-28 13:30 | NUR ---
RECEIVED PATIENT FROM ER TRANSFERRED PATIENT TO BED. NO O2 NEEDED, VITAL WERE CHECKED. PATIENT ORIENTATED TO ROOM. ANSWERED ANY QUESIONS AND CONCERNS. CALL LIGHT WITHIN REACH.
[2025-01-28 15:26] VITALS: BP 140/88; PULSE 81; RESP 20; TEMP 98.3
--- NOTE | 2025-01-28 15:47 | CONS ---
[facility] CARDIOLOGY CONSULTATION NOTE Date Patient Seen: Jan 28, 2025 Time of Visit: 15:42 Reason for Consultation: [AFib and anticoagulation recommendations ] History of Present Illness: [84-year-old female who follows in the cardiology clinic with Dr. Davalos and has a past medical history of hypertension, hyperlipidemia, paroxysmal atrial fibrillation on chronic anticoagulation, breast cancer status post recent left mastectomy who presented to [facility] due to left anterior swelling and chest discomfort following her recent mastectomy. Patient states following her mastectomy she began noticing significant pain on her left chest swelling and bruising. She presented for further evaluation and CT of the chest shows large soft tissue hematoma in the left anterior chest wall involving the left pectoralis major muscle and subcutaneous there. Trace pleural effusions and lower lobe compressive atelectasis bilaterally. Surgery was consulted and is currently undergoing compressive bandages over her left chest with no plans for surgical intervention at this time. On evaluation the bedside she is resting comfortably in no acute distress. Review of telemetry reveals intermittent episodes of atrial fibrillation in sinus rhythm. She denies palpitations, dyspnea, or any other anginal equivalents. She is currently rate controlled in no acute distress and cardiology was consulted for further recommendations regarding her anticoagulation in the setting of her left chest hematoma and AFib. ] Past Medical History: [Refer to HPI ] Past Surgical History: [Recent mastectomy ] Family History: [Noncontributory ] Habits: [Never] smoker. [Denies] alcohol consumption. [Denies] illicit drug use Review of Systems: Review of 12 point systems is negative except per HPI Physical Examination: GENERAL: [No acute distress.] HEAD: [Normal with no signs of head trauma.] EYES: [PERRLA, EOMI, conjunctiva and sclera normal.] ENT: [Hearing grossly intact, normal oropharynx.] NECK: [Supple without JVD. There is no tenderness, lymphadenopathy, or masses. No thyromegaly. Normal carotid upstrokes without bruits.] LUNGS: [Clear breath sounds bilaterally.. No wheezes, or rhonchi.] HEART: [Normal rate and rhythm. Normal S1 and S2 without mumurs, gallop or rub.] VASC: [Peripheral pulses +2 bilaterally.] ABD: [Bowel sounds normal, soft, nontender, no masses, no organomegaly. No audible bruits.] : [Not examined] LYMPH: [No lymphadenopathy noted.] EXT: [No clubbing, cyanosis or edema.] SKIN: [Left chest swelling, point tenderness with a pressure dressing).] NEURO: [Awake, alert, and oriented x3. No focal sensory or strength deficits noted.] Vital Signs (last 8hr) Date Time Temp Pulse Resp B/P (MAP) Pulse Ox O2 Delivery O2 Flow Rate FiO2 01/28/25 15:26 98.2 81 20 140/88 97 Room Air 01/28/25 09:51 95 16 134/64 98 Room Air* 0 21 01/28/25 07:47 98.2 96 16 140/75 98 Room Air* 0 21 Laboratory: [ ] Hematology Labs: Test 01/27/25 22:53 Range/Units White Blood Count 8.7 4.8-10.8 K/uL Red Blood Count 2.67 L 4.00-5.50 MIL/uL Hemoglobin 8.1 L 12.0-16.0 g/dL Hematocrit 24.8 L 36-48 % Mean Corpuscular Volume 92.9 79-99 fL Mean Corpuscular Hemoglobin 30.3 27.0-33.0 pg Mean Corpuscular Hemoglobin Concent 32.7 32.0-36.0 g/dL Red Cell Distribution Width 17.4 H 11.0-15.5 % Platelet Count 90 L 130-400 K/uL Mean Platelet Volume 11.9 H 7.5-10.5 fL Immature Granulocyte % (Auto) 0.9 0-1 % Neutrophils (%) (Auto) 87.7 H 40.0-77.0 % Lymphocytes (%) (Auto) 3.5 L 21.0-51.0 % Monocytes (%) (Auto) 6.2 3.0-13.0 % Eosinophils (%) (Auto) 1.5 0.0-8.0 % Basophils (%) (Auto) 0.2 0.0-5.0 % Neutrophils # (Auto) 7.6 1.8-7.7 K/uL Lymphocytes # (Auto) 0.3 L 1.0-4.8 K/uL Monocytes # (Auto) 0.5 0.1-1.0 K/uL Eosinophils # (Auto) 0.13 0.00-0.70 K/uL Basophils # (Auto) 0.02 0.00-0.20 K/uL Absolute Immature Granulocyte (auto 0.08 0-1 K/uL Nucleated Red Blood Cells 0.0 0.0-0.19 % Chemistry Labs: Test 01/27/25 22:53 Range/Units Sodium Level 136 136-145 mmol/L Potassium Level 3.3 L 3.5-5.1 mmol/L Chloride Level 101 101-111 mmol/L Carbon Dioxide Level 28 21-32 mmol/L Blood Urea Nitrogen 9 7-18 mg/dL Creatinine 0.5 0.5-1.0 mg/dL Glomerular Filtration Rate Calc 91 >90 mL/min Random Glucose 114 H 70-105 mg/dL Lactic Acid Level 1.2 0.8-2.5 mmol/L Total Calcium 8.3 L 8.5-10.1 mg/dL Total Bilirubin 1.0 0.2-1.0 mg/dL Aspartate Amino Transf (AST/SGOT) 29 10-37 U/L Alanine Aminotransferase (ALT/SGPT) 21 12-78 U/L Alkaline Phosphatase 68 50-136 U/L Troponin I High Sensitivity 8 4-50 ng/L B-Type Natriuretic Peptide 139 H 0-100 pg/mL Total Protein 5.5 L 6.0-8.3 g/dL Albumin 2.4 L 3.5-5.0 g/dL Procalcitonin 0.20 0.05-0.5 ng/mL Coagulation Labs: Test 01/28/25 07:24 Range/Units Prothrombin Time 11.2 9.6-11.6 SEC Prothromb Time International Ratio 1.06 0.85-1.15 Activated Partial Thromboplast Time 26.6 26.3-35.5 SEC Diagnostics / Radiology: [Copy/Paste Echos/Imaging Report here] Assessment: [Left chest hematoma Breast cancer status post left mastectomy Paroxysmal atrial fibrillation on chronic anticoagulation ] Plan: [ Patient is currently rate controlled off anticoagulation due to a recent left chest hematoma Surgery has been consulted and at this time she is undergoing compressive therapy with no plans for surgical intervention Given her left chest hematoma defer the use of her home anticoagulation until hematoma resolves Resume her home beta-adryan and patient will need close outpatient cardiology follow up with Dr. Davalos in 1-2 weeks post discharge Please keep patient on telemetry and monitor/replace electrolytes as needed No indication further cardiovascular testing at this time Thank you for this consult. Cardiology will sign off at this time Marissa york MD] MARISSA YORK MD Jan 28, 2025 15:47
[2025-01-28 16:03] LABS: IMMATURE GRANULOCYTE ABSOLUTE 0.03 K/uL (0-1); NUCLEATED RED BLOOD CELLS 0.0 % (0.0-0.19); PLATELET COUNT (AUTO) 74 K/uL (130-400); RED BLOOD CELL COUNT(AUTO) 2.54 MIL/uL (4.00-5.50); RED CELL DISTRIBUTION WIDTH 17.5 % (11.0-15.5); WHITE BLOOD COUNT (AUTO) 4.8 K/uL (4.8-10.8)
--- NOTE | 2025-01-28 16:42 | CONS ---
GENERAL SURGERY CONSULTATION NOTE DATE OF CONSULTATION: Jan 28, 2025 TIME OF CONSULTATION: 16:35 CONSULTING SERVICE: Max Rand MD REQUESTING PHYSICAIN: [ ] REASON FOR CONSULTATION: [ ] Fever Left breast hematoma HISTORY OF PRESENT ILLNESS: [ ] 84-year-old lady who presented with fever Patient recently underwent a left mastectomy by Dr. Vee According to the family she had developed an hematoma and she was seen in the hospital about a week ago She has had 3 units of blood transfused last week She also has a JUANITO drain in place The drain has been draining however she developed fever and was brought to the hospital Workup revealed left anterior chest wall hematoma PAST MEDICAL HISTORY: [ [AFib on chronic anticoagulation with Eliquis, thyroid cancer 2016, cystic ankle tumor, arthritis, hypertension, hyperlipidemia PAST SURGICAL HISTORY: [ ] Thyroidectomy Left knee replacement Left mastectomy FAMILY HISTORY: [ ] No family history of hypertension or diabetes SOCIAL HISTORY: [ ] No smoking No alcohol Current Medications Medications (Trade) Dose Ordered Sig/Rex Route Start Time Stop Time Status Last Admin Dose Admin Atorvastatin Calcium (LIPItor 40MG) 40 mg HS PO 01/28/25 21:00 02/27/25 20:59 Cefazolin Sodium (ANCEF 1 gm vial) 1 gm ONCE STAT IVP 01/28/25 02:45 01/28/25 02:48 DC 01/28/25 03:11 1 GM Famotidine (Pepcid 20mg Tab) 20 mg DAILY PO 01/28/25 09:00 02/27/25 08:59 01/28/25 08:35 20 MG Lactated Ringer's 1,000 ml @ 75 mls/hr [id number] IV 01/28/25 05:30 02/27/25 05:29 01/28/25 08:36 75 MLS/HR Lactated Ringer's (Lactated Ringers 1000ml) 2,000 ml BOLUS STAT IV 01/27/25 23:05 01/27/25 23:09 DC 01/28/25 00:18 2,000 ML Metoprolol Tartrate (loprESSOR) 12.5 mg BID PO 01/28/25 09:00 02/27/25 08:59 01/28/25 08:35 12.5 MG Allergies: Coded Allergies: No Known Allergies (Unverified Allergy, Unknown, 12/10/24) REVIEW OF SYSTEMS: PATTERN HANGER: [Denies headaches or blurring of vision.] RESP: [No cough, chest pain or SOB.] CVS: [No palpitaions.] GI: [No abdominal pain AGATA: [No dysuria or hematuria.] Musculoskeletal: [No swelling or joint pain.] BACK: [No pain or swelling.] All other systems are reviewed and essentially negative pertinent positives in HPI. PHYSICAL EXAMINATION: GENERAL: [Patient is lying comfortably in bed, not in any obvious distress.] HEAD: [Normal with no signs of head trauma.] EYES: [Not pale not jaundiced afebrile to touch.] ENT: [ Normal.] NECK: [Supple,no tenderness,no lymphadenopathy,no masses,no thyromegaly ,no bruits, no JVD.] LUNGS: [Clear breath sounds bilaterally. No wheezes, rales, or rhonchi.] Left chest wall Incision intact Minimal swelling with bruising JUANITO in place with dark blood HEART: [Regular rate and rhythm. Normal S1 and S2, without murmurs, rub or gal lop.] ABD: Benign : [Normal, no suprapubic tenderness.] LYMPH: [No lymphadenopathy noted.] EXT: [ Warm soft, non tender.] SKIN: [ No rashes or lesions.] NEURO: [ Awake Alert and oriented x3.] Vital Signs (last 8hr) Date Time Temp Pulse Resp B/P (MAP) Pulse Ox O2 Delivery O2 Flow Rate FiO2 01/28/25 15:26 98.2 81 20 140/88 97 Room Air 01/28/25 13:30 Room Air* 0 21 01/28/25 09:51 95 16 134/64 98 Room Air* 0 21 LABORATORY: [ ] Hematology Labs: Test 01/28/25 15:50 Range/Units White Blood Count 4.8 # 4.8-10.8 K/uL Red Blood Count 2.54 L 4.00-5.50 MIL/uL Hemoglobin 7.7 L 12.0-16.0 g/dL Hematocrit 23.9 L 36-48 % Mean Corpuscular Volume 94.1 79-99 fL Mean Corpuscular Hemoglobin 30.3 27.0-33.0 pg Mean Corpuscular Hemoglobin Concent 32.2 32.0-36.0 g/dL Red Cell Distribution Width 17.5 H 11.0-15.5 % Platelet Count 74 L 130-400 K/uL Mean Platelet Volume 12.1 H 7.5-10.5 fL Immature Granulocyte % (Auto) 0.6 0-1 % Neutrophils (%) (Auto) 71.5 40.0-77.0 % Lymphocytes (%) (Auto) 13.1 L 21.0-51.0 % Monocytes (%) (Auto) 9.0 3.0-13.0 % Eosinophils (%) (Auto) 5.2 0.0-8.0 % Basophils (%) (Auto) 0.6 0.0-5.0 % Neutrophils # (Auto) 3.4 1.8-7.7 K/uL Lymphocytes # (Auto) 0.6 L 1.0-4.8 K/uL Monocytes # (Auto) 0.4 0.1-1.0 K/uL Eosinophils # (Auto) 0.25 0.00-0.70 K/uL Basophils # (Auto) 0.03 0.00-0.20 K/uL Absolute Immature Granulocyte (auto 0.03 0-1 K/uL Nucleated Red Blood Cells 0.0 0.0-0.19 % Chemistry Labs: Test 01/27/25 22:53 Range/Units Sodium Level 136 136-145 mmol/L Potassium Level 3.3 L 3.5-5.1 mmol/L Chloride Level 101 101-111 mmol/L Carbon Dioxide Level 28 21-32 mmol/L Blood Urea Nitrogen 9 7-18 mg/dL Creatinine 0.5 0.5-1.0 mg/dL Glomerular Filtration Rate Calc 91 >90 mL/min Random Glucose 114 H 70-105 mg/dL Lactic Acid Level 1.2 0.8-2.5 mmol/L Total Calcium 8.3 L 8.5-10.1 mg/dL Total Bilirubin 1.0 0.2-1.0 mg/dL Aspartate Amino Transf (AST/SGOT) 29 10-37 U/L Alanine Aminotransferase (ALT/SGPT) 21 12-78 U/L Alkaline Phosphatase 68 50-136 U/L Troponin I High Sensitivity 8 4-50 ng/L B-Type Natriuretic Peptide 139 H 0-100 pg/mL Total Protein 5.5 L 6.0-8.3 g/dL Albumin 2.4 L 3.5-5.0 g/dL Procalcitonin 0.20 0.05-0.5 ng/mL Coagulation Labs: Test 01/28/25 07:24 Range/Units Prothrombin Time 11.2 9.6-11.6 SEC Prothromb Time International Ratio 1.06 0.85-1.15 Activated Partial Thromboplast Time 26.6 26.3-35.5 SEC DIAGNOSTICS / RADIOLOGY: [Copy/Paste Echos/Imaging Report here] ASSESSMENT: [] Status post mastectomy Hematoma Fever Query cause PLAN: [Continue with IV antibiotics Bulky dressing to left chest wall No evidence of active bleed No need for surgery Hematoma is resolving and the drain is functioning Ongoing fever workup Cardiac consult for AFib/MAX Mcfarlane MD Jan 28, 2025 16:41
[2025-01-28 20:00] VITALS: BP 132/83; PULSE 80; RESP 20; TEMP 98.2; O2SAT 96
[2025-01-29] VITALS (7 sets, daily range): BP systolic 126–160; BP diastolic 70–92; PULSE 89–102; RESP 19–22; TEMP 98.1–99; O2SAT 96
[2025-01-29 05:57] LABS: IMMATURE GRANULOCYTE ABSOLUTE 0.04 K/uL (0-1); NUCLEATED RED BLOOD CELLS 0.3 % (0.0-0.19); PLATELET COUNT (AUTO) 118 K/uL (130-400); RED BLOOD CELL COUNT(AUTO) 3.05 MIL/uL (4.00-5.50); RED CELL DISTRIBUTION WIDTH 17.2 % (11.0-15.5); WHITE BLOOD COUNT (AUTO) 6.2 K/uL (4.8-10.8)
[2025-01-29 06:10] LABS: INR 1.03 (0.85-1.15)
[2025-01-29 06:40] LABS: ASPARTATE AMINOTRANSFERASE 28.0 U/L (10-37); CREATININE 0.4 mg/dL (0.5-1.0); GLOMERULAR FILTR. RATE CALC 96.0 mL/min (>90); GLUCOSE,RANDOM 93.0 mg/dL (70-105); PHOSPHORUS 2.6 mg/dL (2.5-4.9); SODIUM SERUM 141.0 mmol/L (136-145); TOTAL PROTEIN, SERUM 5.2 g/dL (6.0-8.3); UREA NITROGEN, BLOOD 9.0 mg/dL (7-18)
--- NOTE | 2025-01-29 09:47 | PN ---
[facility] PROGRESS NOTE Date of Service: Jan 29, 2025 Time of Service: 09:38 SUBJECTIVE: 01/28/25 - Patient seen at bedside in ED 10 with daughter. Patient afebrile and saturating well on room air. Patient is comfortable and in no acute distress. Urinalysis shows proteinuria, small occult blood, negative for leukocytes and nitrates. Remarkable labs: white count within normal limits, hemoglobin 8.1, platelets 90K, potassium 3.3 - replacement protocol in place, BUN 9, creatinine 0.98. Pending surgery recommendations. Pending Cardiology recommendations for continuing anticoagulation in the setting of patient left hematoma. 01/29/2025: Patient seen at bedside with daughter. Patient afebrile and saturating well on room air. She complains of pain and soreness on her left chest. The chest drain is in places that had 30ml blood in past 12 hours. The daughter mentions that Dr Vee, her primary surgeon, might come today to examine her. The patient is vitally stable. REVIEW OF SYSTEMS CONSTITUTIONAL: Denies fevers, chills, or night sweats. No unintentional weight loss reported. NEUROLOGICAL: Denies headache, amaurosis fugax, motor weakness, sensory deficit, vertigo/spinning sensation, gait abnormalities, or tremors. ENT: No hearing loss, otalgia, otorrhea, rhinitis, rhinorrhea, hoarseness, or sore throat. CARDIOVASCULAR: Denies any exertional angina, dyspnea on exertion, orthopnea, paroxysmal nocturnal dyspnea, palpitations, life-threatening arrhythmias, claudication. PULMONARY: Denies any shortness of breath, cough, phlegm/sputum, hemoptysis, pleuritic chest pain. SLEEP: Denies morning headaches, daytime somnolence or napping. Denies difficulty falling asleep, staying asleep, waking from sleep. Denies knowledge of snoring. GASTROINTESTINAL: Denies any type of dysphagia to either liquids or solids. Denies nausea, vomiting, pyrosis, early satiety, abdominal pain, diarrhea, constipation, or changes in stool consistency or caliber. Denies coffee-ground e mesis, hematemesis, hematochezia, or melanotic stools. GENITOURINARY: Denies frequency, urgency, nocturia, hematuria or incontinence (Storage/Irritative symptoms.) Low urinary stream, straining to void, urinary intermittency or hesitancy, splitting of the voiding stream, terminal dribbling. ENDOCRINOLOGIC: Denies polyuria, polydipsia, polyphagia or heat/cold intolerances. HEMATOLOGIC: Denies thrombophilia/previous clots, or coagulopathy/bleeding disorders. ONCOLOGIC: Denies personal history of malignancy. DERMATOLOGIC: Denies rashes or pruritus. PSYCHIATRIC: Denies any suicidal or homicidal ideation. Denies hallucinations. PHYSICAL EXAM GENERAL APPEARANCE: The patient is awake, alert, and oriented, in no acute cardiopulmonary distress. NEUROLOGICAL: Cranial nerves II-XII grossly intact. Motor is 5/5 in bilateral upper and lower extremities proximal to distal. No sensory deficits. HEENT: Face is symmetric. Pupils are equal and reactive. Extraocular movements are intact. NECK: Supple. No JVD. No thyromegaly. No submental, submandibular, pre-/posta uricular, occipital or supraclavicular lymphadenopathy. CHEST: Normal chest expansion. No Telemetry. Hematoma drain on the left chest wall. LUNGS: Absence of any rales, rhonchi or any wheezing. CARDIOVASCULAR: Regular. S1 and S2 normal. No appreciable rubs, murmurs or gallops. ABDOMEN: Soft, nontender, and nondistended. There is no rebound, voluntary guarding, or rigidity. EXTREMITIES: Non-edematous and not cyanotic. No clubbing. Good capillary refill. Onychomycosis. Big toenails, digging into the other toe SKIN: No skin breakdown. Vital Signs (last 8hr) Date Time Temp Pulse Resp B/P (MAP) Pulse Ox O2 Delivery O2 Flow Rate FiO2 01/29/25 08:00 99.0 99 22 141/85 94 Room Air 01/29/25 04:00 98.4 93 20 126/70 96 Room Air LABS: Laboratory: Test 01/29/25 05:28 01/27/25 23:29 01/27/25 22:53 01/27/25 22:50 Range/Units White Blood Count 6.2 # 4.8-10.8 K/uL Red Blood Count 3.05 #L 4.00-5.50 MIL/uL Hemoglobin 9.1 L 12.0-16.0 g/dL Hematocrit 27.5 L 36-48 % Mean Corpuscular Volume 90.2 79-99 fL Mean Corpuscular Hemoglobin 29.8 27.0-33.0 pg Mean Corpuscular Hemoglobin Concent 33.1 32.0-36.0 g/dL Red Cell Distribution Width 17.2 H 11.0-15.5 % Platelet Count 118 #L 130-400 K/uL Mean Platelet Volume 12.9 H 7.5-10.5 fL Immature Granulocyte % (Auto) 0.6 0-1 % Neutrophils (%) (Auto) 64.9 40.0-77.0 % Lymphocytes (%) (Auto) 16.2 L 21.0-51.0 % Monocytes (%) (Auto) 11.5 3.0-13.0 % Eosinophils (%) (Auto) 6.2 0.0-8.0 % Basophils (%) (Auto) 0.6 0.0-5.0 % Neutrophils # (Auto) 4.0 1.8-7.7 K/uL Lymphocytes # (Auto) 1.0 1.0-4.8 K/uL Monocytes # (Auto) 0.7 0.1-1.0 K/uL Eosinophils # (Auto) 0.38 0.00-0.70 K/uL Basophils # (Auto) 0.04 0.00-0.20 K/uL Absolute Immature Granulocyte (auto 0.04 0-1 K/uL Nucleated Red Blood Cells 0.3 H 0.0-0.19 % Prothrombin Time 10.9 9.6-11.6 SEC Prothromb Time International Ratio 1.03 0.85-1.15 Activated Partial Thromboplast Time 25.8 L 26.3-35.5 SEC Sodium Level 141 136-145 mmol/L Potassium Level 3.3 L 3.5-5.1 mmol/L Chloride Level 108 101-111 mmol/L Carbon Dioxide Level 28 21-32 mmol/L Blood Urea Nitrogen 9 7-18 mg/dL Creatinine 0.4 L 0.5-1.0 mg/dL Glomerular Filtration Rate Calc 96 >90 mL/min Random Glucose 93 70-105 mg/dL Total Calcium 8.3 L 8.5-10.1 mg/dL Phosphorus Level 2.6 2.5-4.9 mg/dL Magnesium Level 1.90 1.80-2.40 mg/dL Total Bilirubin 1.0 0.2-1.0 mg/dL Aspartate Amino Transf (AST/SGOT) 28 10-37 U/L Alanine Aminotransferase (ALT/SGPT) 21 12-78 U/L Alkaline Phosphatase 59 50-136 U/L Total Protein 5.2 L 6.0-8.3 g/dL Albumin 2.1 L 3.5-5.0 g/dL Vitamin B12 Level 390 193-986 pg/mL Urine Color YELLOW YELLOW Urine Appearance CLEAR CLEAR Urine pH 6.0 5.0-8.0 Urine Specific [place] 1.016 1.001-1.031 Urine Protein 20 H NEGATIVE mg/dL Urine Glucose (UA) NEGATIVE NEGATIVE mg/dL Urine Ketones NEGATIVE NEGATIVE mg/dL Urine Occult Blood SMALL H NEGATIVE Urine Nitrate NEGATIVE NEGATIVE Urine Bilirubin NEGATIVE NEGATIVE mg/dL Urine Urobilinogen 0.2 0.2-1.0 mg/dL Urine Leukocyte Esterase NEGATIVE NEGATIVE Nain/uL Urine RBC 26-50 H 0-1 /HPF Urine WBC 2-5 H 0-1 /HPF Urine Squamous Epithelial Cells RARE 0-2 /HPF Urine Bacteria None None Seen /HPF Lactic Acid Level 1.2 0.8-2.5 mmol/L Troponin I High Sensitivity 8 4-50 ng/L B-Type Natriuretic Peptide 139 H 0-100 pg/mL Procalcitonin 0.20 0.05-0.5 ng/mL Influenza Type A Antigen Negative For Type A NEGATIVE Influenza Type B Antigen Negative For Type B NEGATIVE SARS-CoV-2 Antigen (Rapid) PRESUMPTIVE NEGATIVE NEGATIVE Group A Streptococcus Rapid negative NEGATIVE Current Medications Medications (Trade) Dose Ordered Sig/Rex Route PRN Reason Start Time Stop Time Status Last Admin Dose Admin Acetaminophen (TYLenol 325MG TAB) 650 mg Q6H PRN PO TEMPERATURE GREATER THAN 101.5 01/28/25 05:30 02/27/25 05:29 Atorvastatin Calcium (LIPItor 40MG) 40 mg HS PO 01/28/25 21:00 02/27/25 20:59 01/28/25 21:33 40 MG Cefazolin Sodium (ANCEF 1 gm vial) 1 gm ONCE STAT IVP 01/28/25 02:45 01/28/25 02:48 DC 01/28/25 03:11 1 GM Famotidine (Pepcid 20mg Tab) 20 mg DAILY PO 01/28/25 09:00 02/27/25 08:59 01/29/25 08:44 20 MG Hydralazine HCl (APRESOLine 20MG INJ) 10 mg Q6H PRN IV For:SBP above 160;DBP above 90 01/28/25 05:30 02/27/25 05:29 Lactated Ringer's 1,000 ml @ 75 mls/hr [id number] IV 01/28/25 05:30 02/27/25 05:29 01/29/25 08:43 75 MLS/HR Lactated Ringer's (Lactated Ringers 1000ml) 2,000 ml BOLUS STAT IV 01/27/25 23:05 01/27/25 23:09 DC 01/28/25 00:18 2,000 ML Magnesium Sulfate 50 ml @ 0 mls/hr PROTOCOL PRN IV MAGNESIUM PROTOCOL 01/29/25 09:00 02/28/25 08:59 Metoprolol Tartrate (loprESSOR) 12.5 mg BID PO 01/28/25 09:00 02/27/25 08:59 01/29/25 08:43 12.5 MG Morphine Sulfate (morPHINE 2MG SYG) 2 mg Q4H PRN IVP SEVERE PAIN (7-10) 01/28/25 05:30 02/04/25 05:29 Ondansetron HCl (zoFRAN 4MG INJ) 4 mg Q6H PRN IV NAUSEA/VOMITING 01/28/25 05:30 02/27/25 05:29 Potassium Chloride 100 ml @ 50 mls/hr AD PRN IV POTASSIUM PROTOCOL 01/28/25 05:30 02/27/25 05:29 01/29/25 08:44 50 MLS/HR DIAGNOSTICS / RADIOLOGY: [ ] ASSESSMENT: Sepsis, POA Left chest wall hematoma, POA Hypokalemia, POA Bilateral pleural effusions, POA AFib on chronic anticoagulation with Eliquis, history of thyroid cancer hypertension hyperlipidemia PLAN: Left chest wall hematoma Fluid resuscitation with lactated Ringer's 30 mL/kg Check blood culture, follow up with the results. No growth for [address] of the chest that shows left chest wall hematoma and pleural effusions. IV fluid maintenance therapy lactated Ringer's 75 mL/HR. As needed analgesia with morphine. JUANITO drain to bulb suction Replace potassium per hospital protocol Supplemental oxygen to maintain O2 saturation greater 92%. Check preprocedure labs, CBC, BMP, magnesium, phosphorus Hold patient's DOAC at this time due to known hematoma resume DOAC when recommended by General surgery Service Atrial Fibrillation Rhythm is atrial fibrillation to atrial flutter to sinus rhythm Metoprolol 25mg by mouth twice daily. Hold patient's DOAC (eliquis) at this time due to known hematoma , resume DOAC when recommended by General surgery Service Hydralazine 10 mg IV every 4 hours for systolic blood pressure greater than 160 mmHg Atorvastatin 40 mg by mouth once daily Urinary Retention Consult urology Onychomycosis Consult podiatry Hypomagnesemia Magnesium 1.90 Replace magnesium as per protocol GI prophylaxis, famotidine DVT prophylaxis, Efrain's and SCDs PHYSICIAN RESIDENT STATEMENT I was present with the resident during the History and Physical exam and I have reviewed the resident's note. This case was discussed with the resident and I agree with the history, physical exam and medical decision making as documented. Additions/exceptions/observations were directly added to the notes. Efrain Daley MD, SYED M MD Jan 29, 2025 09:47
--- NOTE | 2025-01-29 11:18 | NUR ---
DPC:[facility] Prior to coming into the hospital pt was at [facility] and was there due to her going to start PT and OT. Son who was at bedside stated that he has been in and out of the hospital and [facility] since December 10 of this year. Son states this recent admission to [facility] was going to be for PT and the other was for antibiotics. Pt uses a walker and wheelchair to ambulate. PCP is Dr. Chip Rojas and uses [facility] for any RX needs. At [place] pt states that she will return to [facility], consent in chart. Addendum: 01/29/25 at 1122 by CESAR WOOD SS Amended: Links added.
--- NOTE | 2025-01-29 12:02 | PN ---
Patient is status post mastectomy. Was sent in from the snf because of a large hematoma that she developed on Wednesday night when her compression dressing fell off. She had been having episodes of hypoxia was placed on oxygen. She had a temperature of 102.1 time. No nausea no vomiting. She had been having a lot of nasal drip and secretions as per the family members. She was brought into the ER because of the fever of 102. All blood cultures have been negative. WBCs have been within normal limits throughout the admission. CT scan shows already that the large left chest wall hematoma is starting to get smaller. Drain output has been 30 cc out of each drain. Removed all the bandages. There is a small skin blister at the incision no cellulitis no erythema. There was some fluctuance at the hematoma. Drains are draining dark blood. Assessment and plan Patient probably had coughing spells while the compression dressing was off and this created some active bleeding and caused the hematoma. At this time no signs of infection of the hematoma. We need to do Betadine cast through the incision and the blister on a daily basis every 24 hours. Compression bandages with Mt wrap are to be done on a daily basis and if it loosens up patient needs to notify the nursing staff so that they can rewrap it. I did it myself today. Drains need to be milked every day to ensure that there is no clots. Ice packs need to be applied over top of the hematoma three to 4 times a day 20 minutes at a time. From surgical standpoint no need for intervention. Patient can be discharged when medically clear. I do recommend patient having incentive spirometer and work on it every hour since her CT scan did show atelectasis. Thank you Dr. Hampton for covering for me. Vitals/Labs Vital Signs Date Time Temp Pulse Resp B/P (MAP) Pulse Ox O2 Delivery O2 Flow Rate FiO2 01/29/25 08:00 99.0 99 22 141/85 94 Room Air 01/28/25 20:00 0 21 Laboratory Tests 01/28/25 15:50 01/29/25 05:28 Medications Current Medications Lactated Ringer's 2,000 ml BOLUS STAT IV Last administered on 01/28/25at 00:18; Start 01/27/25 at 23:05; Stop 01/27/25 at 23:09; Status DC Iohexol 50 ml STK-MED ONCE IV; Start 01/28/25 at 01:27; Stop 01/28/25 at 01:28; Status DC Cefazolin Sodium 1 gm ONCE STAT IVP Last administered on 01/28/25at 03:11; Start 01/28/25 at 02:45; Stop 01/28/25 at 02:48; Status DC Potassium Chloride 100 ml @ 50 mls/hr AD PRN IV Last administered on 01/29/25at 08:44; Start 01/28/25 at 05:30; Stop 02/27/25 at 05:29 Acetaminophen 650 mg Q6H PRN PO; Start 01/28/25 at 05:30; Stop 02/27/25 at 05:29 Famotidine 20 mg DAILY PO Last administered on 01/29/25at 08:44; Start 01/28/25 at 09:00; Stop 02/27/25 at 08:59 Hydralazine HCl 10 mg Q6H PRN IV; Start 01/28/25 at 05:30; Stop 02/27/25 at 05:29 Lactated Ringer's 1,000 ml @ 75 mls/hr [id number] IV Last administered on 01/29/25at 08:43; Start 01/28/25 at 05:30; Stop 02/27/25 at 05:29 Morphine Sulfate 2 mg Q4H PRN IVP; Start 01/28/25 at 05:30; Stop 02/04/25 at 05:29 Ondansetron HCl 4 mg Q6H PRN IV; Start 01/28/25 at 05:30; Stop 02/27/25 at 05:29 Lactated Ringer's 1,959 ml @ 653 mls/hr ONCE ONCE IV Last administered on 01/28/25at 06:23; Start 01/28/25 at 05:30; Stop 01/28/25 at 08:29; Status DC Metoprolol Tartrate 12.5 mg BID PO Last administered on 01/29/25at 08:43; Start 01/28/25 at 09:00; Stop 01/29/25 at 10:30; Status DC Atorvastatin Calcium 40 mg HS PO Last administered on 01/28/25at 21:33; Start 01/28/25 at 21:00; Stop 02/27/25 at 20:59 Magnesium Sulfate 50 ml @ 0 mls/hr PROTOCOL PRN IV; Start 01/29/25 at 09:00; Stop 02/28/25 at 08:59 Metoprolol Tartrate 25 mg BID PO; Start 01/29/25 at 21:00; Stop 02/28/25 at 20:59 DMITRY LUQUE MD Jan 29, 2025 12:02
[2025-01-29] MEDS ORDERED: PROMETH HCL PO PRN (12:30)
[2025-01-29] MEDS ORDERED: D METHORPHAN HB PO PRN (12:30)
[2025-01-29] MEDS ORDERED: IOHEXOL 350 MG/ML 100ML INFUS..BTL IV ONE (18:33)
[2025-01-29] MEDS ORDERED: TRAZ-185 PO (19:52)
--- NOTE | 2025-01-29 21:02 | HMCIMG ---
EXAM:CT Abdomen and Pelvis with and without IV contrast CLINICAL HISTORY: Patient presents with urinary retention. TECHNIQUE: Axial computed tomography images of the abdomen and pelvis with and without intravenous contrast. CONTRAST: With and without intravenous contrast. COMPARISON: CT abdomen and pelvis dated December 10, 2024. FINDINGS: LUNG BASES: Bilateral mild pleural effusion with adjacent basal subsegmental atelectasis. LIVER: No hepatic lesions. GALLBLADDER AND BILE DUCTS: Stable focal nodular fundal gallbladder wall thickening measuring 0.9 cm concerning for gallbladder fundal adenomyomatosis. No radiopaque gallstones. No biliary ductal dilatation. PANCREAS: Unremarkable. SPLEEN: Unremarkable. ADRENAL GLANDS: Unremarkable. KIDNEYS, URETERS, AND BLADDER: Stable left renal cyst in the interpolar region measuring 1.6 x 1.4 x 1.4 cm. Stable 0.5 cm calculus in the lower calyx of the right kidney. The urinary bladder is incompletely distended with Mccray???s bulb in place. Air pockets within the urinary bladder lumen likely secondary to recent catheterization. No hydronephrosis or hydroureter. No masses seen. STOMACH AND BOWEL: Small hiatal hernia. Occasional colonic diverticulosis without diverticulitis. No evidence of bowel obstruction. No findings suggesting enteritis or colitis. PERITONEUM: No free fluid. No free air. LYMPH NODES: No lymphadenopathy. REPRODUCTIVE Stable well-defined biloculated cystic lesion within the pelvis measuring approximately 8.3 x 12.1 x 11.2 cm, abutting and displacing the rectosigmoid colon. The uterus is not visualized, likely postsurgical status. Both ovaries are not visualized separately. VASCULATURE: Atheromatous calcifications in the aorta without evidence of aneurysm. BONES: Multilevel moderate degenerative changes in the spine. Dorsolumbar levoscoliosis. SOFT TISSUES: Large soft tissue hematoma in the left anterior chest wall, incompletely imaged, with a surgical drain in place. Generalized anasarca. IMPRESSION: Large soft tissue hematoma in the left anterior chest wall, incompletely imaged, with a surgical drain in place. Large stable biloculated cystic lesion within the pelvis Filling of the bladder. No masses seen. Please correlate to see if Mccray is working. /Fletcher
[2025-01-30] VITALS (7 sets, daily range): BP systolic 113–143; BP diastolic 60–93; PULSE 10–102; RESP 18–20; TEMP 97.6–98.6; O2SAT 95–97
[2025-01-30 05:53] LABS: IMMATURE GRANULOCYTE ABSOLUTE 0.04 K/uL (0-1); NUCLEATED RED BLOOD CELLS 0.0 % (0.0-0.19); PLATELET COUNT (AUTO) 146 K/uL (130-400); RED BLOOD CELL COUNT(AUTO) 3.31 MIL/uL (4.00-5.50); RED CELL DISTRIBUTION WIDTH 16.7 % (11.0-15.5); WHITE BLOOD COUNT (AUTO) 7.1 K/uL (4.8-10.8)
[2025-01-30 06:06] LABS: CREATININE 0.5 mg/dL (0.5-1.0); GLOMERULAR FILTR. RATE CALC 91.0 mL/min (>90); GLUCOSE,RANDOM 97.0 mg/dL (70-105); PHOSPHORUS 2.7 mg/dL (2.5-4.9); SODIUM SERUM 140.0 mmol/L (136-145); UREA NITROGEN, BLOOD 7.0 mg/dL (7-18)
[2025-01-30] MEDS ORDERED: PoTASSium chl 10% ELIXIR 20MEQ 20 MEQ/15 ML UDCUP PO PRN (06:30)
[2025-01-30] MEDS: PoTASSium chloRIDE 20MEQ ER 20 MEQ ERTAB PO PRN (06:32)
[2025-01-30] MEDS: LISINOPRIL 40 MG TABLET PO SCH (09:34)
--- NOTE | 2025-01-30 10:26 | PN ---
This is a 84-year-old female known to our practice status post mastectomy Interval history: This 84-year-old female seen in her room resting Dressing securely on at this time JUANITO one with an output of 40 and JUANITO two with an output of 10 of dark sanguinous output Patient's hemoglobin stable Patient remains without fever at this time Patient currently pending urology and Podiatry consultation Physical exam General: Awake alert and oriented Heart: Regular rate and rhythm} Lungs: Clear to auscultation no distress Abdomen: [Soft, nontender, nondistended Continued bruising with improvement of size of hematoma mastectomy site with JUANITO is in place Assessment : This is an 84-year-old female status post mastectomy with Dr. Vee Plan: From surgical standpoint no further intervention planned Patient to continue with recommendations of Dr. Vee with daily changes of dressing with Betadine casts Compression dressings to be monitor daily and re-dressed if loosened Continue with ice Patient is cleared from surgical standpoint for discharge today if medically clear to keep her appointment for tomorrow Dr. Vee Vitals/Labs Vital Signs Date Time Temp Pulse Resp B/P (MAP) Pulse Ox O2 Delivery O2 Flow Rate FiO2 01/30/25 09:57 95 Room Air* 0 21 01/30/25 08:00 97.9 10 20 130/93 Laboratory Tests 01/30/25 05:43 Medications Current Medications Lactated Ringer's 2,000 ml BOLUS STAT IV Last administered on 01/28/25at 00:18; Start 01/27/25 at 23:05; Stop 01/27/25 at 23:09; Status DC Iohexol 50 ml STK-MED ONCE IV; Start 01/28/25 at 01:27; Stop 01/28/25 at 01:28; Status DC Cefazolin Sodium 1 gm ONCE STAT IVP Last administered on 01/28/25at 03:11; Start 01/28/25 at 02:45; Stop 01/28/25 at 02:48; Status DC Potassium Chloride 100 ml @ 50 mls/hr AD PRN IV Last administered on 01/29/25at 08:44; Start 01/28/25 at 05:30; Stop 02/27/25 at 05:29 Acetaminophen 650 mg Q6H PRN PO Last administered on 01/30/25at 09:40; Start 01/28/25 at 05:30; Stop 02/27/25 at 05:29 Famotidine 20 mg DAILY PO Last administered on 01/30/25at 09:34; Start 01/28/25 at 09:00; Stop 02/27/25 at 08:59 Hydralazine HCl 10 mg Q6H PRN IV; Start 01/28/25 at 05:30; Stop 02/27/25 at 05:29 Lactated Ringer's 1,000 ml @ 75 mls/hr [id number] IV Last administered on 01/29/25at 08:43; Start 01/28/25 at 05:30; Stop 02/27/25 at 05:29 Morphine Sulfate 2 mg Q4H PRN IVP; Start 01/28/25 at 05:30; Stop 02/04/25 at 05:29 Ondansetron HCl 4 mg Q6H PRN IV; Start 01/28/25 at 05:30; Stop 02/27/25 at 05:29 Lactated Ringer's 1,959 ml @ 653 mls/hr ONCE ONCE IV Last administered on 01/28/25at 06:23; Start 01/28/25 at 05:30; Stop 01/28/25 at 08:29; Status DC Metoprolol Tartrate 12.5 mg BID PO Last administered on 01/29/25at 08:43; Start 01/28/25 at 09:00; Stop 01/29/25 at 10:30; Status DC Atorvastatin Calcium 40 mg HS PO Last administered on 01/29/25at 20:45; Start 01/28/25 at 21:00; Stop 02/27/25 at 20:59 Magnesium Sulfate 50 ml @ 0 mls/hr PROTOCOL PRN IV; Start 01/29/25 at 09:00; Stop 02/28/25 at 08:59 Metoprolol Tartrate 25 mg BID PO Last administered on 01/30/25at 09:34; Start 01/29/25 at 21:00; Stop 02/28/25 at 20:59 Cetirizine HCl 10 mg DAILY PO Last administered on 01/30/25at 09:33; Start 01/30/25 at 09:00; Stop 03/01/25 at 08:59 Home Med (D-Methorphan Hb/Prometh HCl (Promethazine... Q4HPRN PRN PO; Start 01/29/25 at 12:30; Stop 02/28/25 at 12:29 Iohexol 35,000 mg STK-MED ONCE IV; Start 01/29/25 at 18:33; Stop 01/29/25 at 18:33; Status DC Trazodone HCl 50 mg HS PO Last administered on 01/29/25at 20:45; Start 01/29/25 at 21:00; Stop 02/28/25 at 20:59 Lisinopril 40 mg DAILY PO Last administered on 01/30/25at 09:34; Start 01/30/25 at 09:00; Stop 03/01/25 at 08:59 Potassium Chloride 20 meq AD PRN PO; Start 01/30/25 at 06:30; Stop 03/01/25 at 06:29 Potassium Chloride 20 meq AD PRN PO Last administered on 01/30/25at 06:32; Start 01/30/25 at 06:30; Stop 03/01/25 at 06:29 MINE HALE Jr. Jan 30, 2025 10:26
--- NOTE | 2025-01-30 11:30 | NUR ---
DRESSING CHANGE PROVIDED DRESSING CHANGE. BETADINE APPLIED TO MASECTOMY INCISION COVERED WITH 4X4S GAUZES. SPLIT GAUZE APPLIED TO JUANITO DRAINAGE INSERTION. MILKING PROVIDED TO BOTH JUANITO DRAINAGE. 10 MLS JUANITO #1 DRAINED. 10 MLS JUANITO #2 DRAINED. PT TOLERATED WELL. SECURED DRESSINGS WITH SG BANDAGE. PT DENIES DIFFICULTY BREATHING. NO S/S OF DISCOMFORT.
--- NOTE | 2025-01-30 12:24 | NUR ---
PT VERBALIZED HER L. ARM IS SWOLLEN. STATED SHE NOTICED THE SWELLING LAST NIGHT. PT DENIED DRESSING BEING TIGHT. PT DENIED ARM BOTHERING HER AND DENIED FEELINGS DIFFICULTY BREATHING. EMERY HESS WAS NOTIFIED. ICE PACK WAS PLACED ON L. MASECTOMY INCISION AREA. WILL CONTINUE TO MONITOR.
--- NOTE | 2025-01-30 14:45 | NUR ---
Nutritional Note: Chart, meds, and labs Reviewed. Recommend: -Continue 6small meals 75gm cc diet -Supplement Vit D (Vit D 27.5) recommend 1000 IU daily. Per research low vitamin D may contribute to insulin resistance + vit. D deficiency may impair wound healing. -Check HA1C to obtain the three-month average of blood sugar. -Check folate, iron, vit b12, and Vit D levels to rule out deficiencies -Check fasting Lipid Panel to evaluate cholesterol levels given the pts history of obesity, HTN, dyslipidemia, and DMII. - Electrolyte replacements per protocol -Monitor feeding tolerance, %, wt, and labs -Document PO intake and wt daily. -If No BM >3days consider bowel stimulant. -Consider appetite stimulant if intake remains <75%for 3 days. -Schedule outpatient RD f/u for long-term nutrition care. - Notify RD if additional nutrition concerns arise. SEE RD Nutritional Assessment for additional assessment information. Addendum: 01/30/25 at [address] Amended: Links added.
--- NOTE | 2025-01-30 15:04 | NUR ---
SPOKE TO [facility] OFFICE. [facility]ASE NURSE GAVE TELEPHONE ORDERS FOR A CT CYSTOGRAM FOR DIVERTICULUM BLADDER AND CHANGE URINARY CATHETER IF IT HAS NOT BEEN CHANGED IN THE PAST 3 WEEKS. PTS CATHETER WAS INSERTED ON 01/23/2025. HAS ONLY HAD CATHETER IN FOR ONE WEEK. WROTE A NURSING COMMUNICATION.
--- NOTE | 2025-01-30 16:56 | PN ---
[facility] PROGRESS NOTE Date of Service: Jan 30, 2025 Time of Service: 16:45 SUBJECTIVE: 01/28/25 - Patient seen at bedside in ED 10 with daughter. Patient afebrile and saturating well on room air. Patient is comfortable and in no acute distress. Urinalysis shows proteinuria, small occult blood, negative for leukocytes and nitrates. Remarkable labs: white count within normal limits, hemoglobin 8.1, platelets 90K, potassium 3.3 - replacement protocol in place, BUN 9, creatinine 0.98. Pending surgery recommendations. Pending Cardiology recommendations for continuing anticoagulation in the setting of patient left hematoma. 01/29/2025: Patient seen at bedside with daughter. Patient afebrile and saturating well on room air. She complains of pain and soreness on her left chest. The chest drain is in places that had 30ml blood in past 12 hours. The daughter mentions that Dr Vee, her primary surgeon, might come today to examine her. The patient is vitally stable. 01/30/2025: Patient seen at bedside with daughter. Patient afebrile and saturating well on room air. She complains of pain and soreness on her left chest. Dr Vee rounded yesterday and cleared her for discharge from surgery point of view. The patient is vitally stable. She is waiting for urology and podiatry consult. REVIEW OF SYSTEMS CONSTITUTIONAL: Denies fevers, chills, or night sweats. No unintentional weight loss reported. NEUROLOGICAL: Denies headache, amaurosis fugax, motor weakness, sensory deficit, vertigo/spinning sensation, gait abnormalities, or tremors. ENT: No hearing loss, otalgia, otorrhea, rhinitis, rhinorrhea, hoarseness, or sore throat. CARDIOVASCULAR: Denies any exertional angina, dyspnea on exertion, orthopnea, paroxysmal nocturnal dyspnea, palpitations, life-threatening arrhythmias, claudication. PULMONARY: Denies any shortness of breath, cough, phlegm/sputum, hemoptysis, pleuritic chest pain. SLEEP: Denies morning headaches, daytime somnolence or napping. Denies difficulty falling asleep, staying asleep, waking from sleep. Denies knowledge of snoring. GASTROINTESTINAL: Denies any type of dysphagia to either liquids or solids. Denies nausea, vomiting, pyrosis, early satiety, abdominal pain, diarrhea, constipation, or changes in stool consistency or caliber. Denies coffee-ground emesis, hematemesis, hematochezia, or melanotic stools. GENITOURINARY: Denies frequency, urgency, nocturia, hematuria or incontinence (Storage/Irritative symptoms.) Low urinary stream, straining to void, urinary intermittency or hesitancy, splitting of the voiding stream, terminal dribbling. ENDOCRINOLOGIC: Denies polyuria, polydipsia, polyphagia or heat/cold intolerances. HEMATOLOGIC: Denies thrombophilia/previous clots, or coagulopathy/bleeding disorders. ONCOLOGIC: Denies personal history of malignancy. DERMATOLOGIC: Denies rashes or pruritus. PSYCHIATRIC: Denies any suicidal or homicidal ideation. Denies hallucinations. PHYSICAL EXAM GENERAL APPEARANCE: The patient is awake, alert, and oriented, in no acute cardiopulmonary distress. NEUROLOGICAL: Cranial nerves II-XII grossly intact. Motor is 5/5 in bilateral upper and lower extremities proximal to distal. No sensory deficits. HEENT: Face is symmetric. Pupils are equal and reactive. Extraocular movements are intact. NECK: Supple. No JVD. No thyromegaly. No submental, submandibular, pre- /postauricular, occipital or supraclavicular lymphadenopathy. CHEST: Normal chest expansion. No Telemetry. Hematoma drain on the left chest wall. Chest id tightly wrapped in bandage. LUNGS: Absence of any rales, rhonchi or any wheezing. CARDIOVASCULAR: Regular. S1 and S2 normal. No appreciable rubs, murmurs or gallops. ABDOMEN: Soft, nontender, and nondistended. There is no rebound, voluntary guarding, or rigidity. EXTREMITIES: Non-edematous and not cyanotic. No clubbing. Good capillary refill. Onychomycosis. Big toenails, digging into the other toe SKIN: No skin breakdown. Vital Signs (last 8hr) Date Time Temp Pulse Resp B/P (MAP) Pulse Ox O2 Delivery O2 Flow Rate FiO2 01/30/25 12:00 98.2 102 20 132/86 95 Room Air 01/30/25 09:57 95 Room Air* 0 21 LABS: Laboratory: Test 01/30/25 05:43 01/29/25 05:28 Range/Units White Blood Count 7.1 4.8-10.8 K/uL Red Blood Count 3.31 L 4.00-5.50 MIL/uL Hemoglobin 9.8 L 12.0-16.0 g/dL Hematocrit 30.0 L 36-48 % Mean Corpuscular Volume 90.6 79-99 fL Mean Corpuscular Hemoglobin 29.6 27.0-33.0 pg Mean Corpuscular Hemoglobin Concent 32.7 32.0-36.0 g/dL Red Cell Distribution Width 16.7 H 11.0-15.5 % Platelet Count 146 130-400 K/uL Mean Platelet Volume 12.2 H 7.5-10.5 fL Immature Granulocyte % (Auto) 0.6 0-1 % Neutrophils (%) (Auto) 67.0 40.0-77.0 % Lymphocytes (%) (Auto) 15.7 L 21.0-51.0 % Monocytes (%) (Auto) 11.6 3.0-13.0 % Eosinophils (%) (Auto) 4.5 0.0-8.0 % Basophils (%) (Auto) 0.6 0.0-5.0 % Neutrophils # (Auto) 4.8 1.8-7.7 K/uL Lymphocytes # (Auto) 1.1 1.0-4.8 K/uL Monocytes # (Auto) 0.8 0.1-1.0 K/uL Eosinophils # (Auto) 0.32 0.00-0.70 K/uL Basophils # (Auto) 0.04 0.00-0.20 K/uL Absolute Immature Granulocyte (auto 0.04 0-1 K/uL Nucleated Red Blood Cells 0.0 0.0-0.19 % Sodium Level 140 136-145 mmol/L Potassium Level 3.5 3.5-5.1 mmol/L Chloride Level 108 101-111 mmol/L Carbon Dioxide Level 29 21-32 mmol/L Blood Urea Nitrogen 7 7-18 mg/dL Creatinine 0.5 0.5-1.0 mg/dL Glomerular Filtration Rate Calc 91 >90 mL/min Random Glucose 97 70-105 mg/dL Total Calcium 8.8 8.5-10.1 mg/dL Phosphorus Level 2.7 2.5-4.9 mg/dL Magnesium Level 1.90 1.80-2.40 mg/dL Prothrombin Time 10.9 9.6-11.6 SEC Prothromb Time International Ratio 1.03 0.85-1.15 Activated Partial Thromboplast Time 25.8 L 26.3-35.5 SEC Total Bilirubin 1.0 0.2-1.0 mg/dL Aspartate Amino Transf (AST/SGOT) 28 10-37 U/L Alanine Aminotransferase (ALT/SGPT) 21 12-78 U/L Alkaline Phosphatase 59 50-136 U/L Total Protein 5.2 L 6.0-8.3 g/dL Albumin 2.1 L 3.5-5.0 g/dL Vitamin B12 Level 390 193-986 pg/mL Vitamin D 25-Hydroxy 27.5 30.0-100.0 ng/mL Current Medications Medications (Trade) Dose Ordered Sig/Rex Route PRN Reason Start Time Stop Time Status Last Admin Dose Admin Acetaminophen (TYLenol 325MG TAB) 650 mg Q6H PRN PO TEMPERATURE GREATER THAN 101.5 01/28/25 05:30 02/27/25 05:29 01/30/25 09:40 650 MG Atorvastatin Calcium (LIPItor 40MG) 40 mg HS PO 01/28/25 21:00 02/27/25 20:59 01/29/25 20:45 40 MG Cefazolin Sodium (ANCEF 1 gm vial) 1 gm ONCE STAT IVP 01/28/25 02:45 01/28/25 02:48 DC 01/28/25 03:11 1 GM Cetirizine HCl (ZYRtec 5 MG TABLET) 10 mg DAILY PO 01/30/25 09:00 03/01/25 08:59 01/30/25 09:33 10 MG Famotidine (Pepcid 20mg Tab) 20 mg DAILY PO 01/28/25 09:00 02/27/25 08:59 01/30/25 09:34 20 MG Home Med (Home Medication) (D-Methorphan Hb/Prometh HCl (Promethazine... Q4HPRN PRN PO cough 01/29/25 12:30 02/28/25 12:29 Hydralazine HCl (APRESOLine 20MG INJ) 10 mg Q6H PRN IV For:SBP above 160;DBP above 90 01/28/25 05:30 02/27/25 05:29 Lactated Ringer's 1,000 ml @ 75 mls/hr [id number] IV 01/28/25 05:30 02/27/25 05:29 01/29/25 08:43 75 MLS/HR Lactated Ringer's (Lactated Ringers 1000ml) 2,000 ml BOLUS STAT IV 01/27/25 23:05 01/27/25 23:09 DC 01/28/25 00:18 2,000 ML Lisinopril (Prinivil 40mg) 40 mg DAILY PO 01/30/25 09:00 03/01/25 08:59 01/30/25 09:34 40 MG Magnesium Sulfate 50 ml @ 0 mls/hr PROTOCOL PRN IV MAGNESIUM PROTOCOL 01/29/25 09:00 02/28/25 08:59 Metoprolol Tartrate (loprESSOR) 12.5 mg BID PO 01/28/25 09:00 01/29/25 10:30 DC 01/29/25 08:43 12.5 MG Metoprolol Tartrate (loprESSOR) 25 mg BID PO 01/29/25 21:00 02/28/25 20:59 01/30/25 09:34 25 MG Morphine Sulfate (morPHINE 2MG SYG) 2 mg Q4H PRN IVP SEVERE PAIN (7-10) 01/28/25 05:30 02/04/25 05:29 Ondansetron HCl (zoFRAN 4MG INJ) 4 mg Q6H PRN IV NAUSEA/VOMITING 01/28/25 05:30 02/27/25 05:29 Potassium Chloride 100 ml @ 50 mls/hr AD PRN IV POTASSIUM PROTOCOL 01/28/25 05:30 02/27/25 05:29 01/29/25 08:44 50 MLS/HR Potassium Chloride (K-Dur/Klor-Con 20meq) 20 meq AD PRN PO POTASSIUM PROTOCOL 01/30/25 06:30 03/01/25 06:29 01/30/25 12:45 20 MEQ Potassium Chloride (KCl 10% Elixir 20meq/15ml) 20 meq AD PRN PO POTASSIUM PROTOCOL 01/30/25 06:30 03/01/25 06:29 Trazodone HCl (DesyREL/OlepTRO) 50 mg HS PO 01/29/25 21:00 02/28/25 20:59 01/29/25 20:45 50 MG DIAGNOSTICS / RADIOLOGY: PATIENT: CLAIRE JAMES MR#: [id number] : 1940 SEX: F AGE: 84 [facility] ORDER 08 STATUS: ADM IN REPORT#: [id number] SERVICE 07 REASON: URINARY RETENTION ORDERING PHYSICIAN: DILSHAD ONTIVEROS MD PROCEDURE: UROGRAM - CT UROGRAM (ABD/PEL WWO) EXAM:CT Abdomen and Pelvis with and without IV contrast CLINICAL HISTORY: Patient presents with urinary retention. TECHNIQUE: Axial computed tomography images of the abdomen and pelvis with and without intravenous contrast. CONTRAST: With and without intravenous contrast. COMPARISON: CT abdomen and pelvis dated December 10, 2024. FINDINGS: LUNG BASES: Bilateral mild pleural effusion with adjacent basal subsegmental atelectasis. LIVER: No hepatic lesions. GALLBLADDER AND BILE DUCTS: Stable focal nodular fundal gallbladder wall thickening measuring 0.9 cm concerning for gallbladder fundal adenomyomatosis. No radiopaque gallstones. No biliary ductal dilatation. PANCREAS: Unremarkable. SPLEEN: Unremarkable. ADRENAL GLANDS: Unremarkable. KIDNEYS, URETERS, AND BLADDER: Stable left renal cyst in the interpolar region measuring 1.6 x 1.4 x 1.4 cm. Stable 0.5 cm calculus in the lower calyx of the right kidney. The urinary bladder is incompletely distended with Mccray???s bulb in place. Air pockets within the urinary bladder lumen likely secondary to recent catheterization. No hydronephrosis or hydroureter. No masses seen. STOMACH AND BOWEL: Small hiatal hernia. Occasional colonic diverticulosis without diverticulitis. No evidence of bowel obstruction. No findings suggesting enteritis or colitis. PERITONEUM: No free fluid. No free air. LYMPH NODES: No lymphadenopathy. REPRODUCTIVE Stable well-defined biloculated cystic lesion within the pelvis measuring approximately 8.3 x 12.1 x 11.2 cm, abutting and displacing the rectosigmoid colon. The uterus is not visualized, likely postsurgical status. Both ovaries are not visualized separately. VASCULATURE: Atheromatous calcifications in the aorta without evidence of aneurysm. BONES: Multilevel moderate degenerative changes in the spine. Dorsolumbar levoscoliosis. SOFT TISSUES: Large soft tissue hematoma in the left anterior chest wall, incompletely imaged, with a surgical drain in place. Generalized anasarca. IMPRESSION: Large soft tissue hematoma in the left anterior chest wall, incompletely imaged, with a surgical drain in place. Large stable biloculated cystic lesion within the pelvis Filling of the bladder. No masses seen. Please correlate to see if Mccray is working. /[place] DICTATED BY: PIPO HOFF MD DATE: 01/29/252200 ELECTRONICALLY SIGNED BY: PIPO HOFF MD DATE: 01/29/252200 ASSESSMENT: Sepsis, POA Left chest wall hematoma, POA Hypokalemia, POA Bilateral pleural effusions, POA AFib on chronic anticoagulation with Eliquis, history of thyroid cancer hypertension hyperlipidemia PLAN: Left chest wall hematoma Fluid resuscitation with lactated Ringer's 30 mL/kg Check blood culture, follow up with the results. No growth for [address] of the chest that shows left chest wall hematoma and pleural effusions. As needed analgesia with morphine. JUANITO drain to bulb suction Replace potassium per hospital protocol Supplemental oxygen to maintain O2 saturation greater 92%. Check preprocedure labs, CBC, BMP, magnesium, phosphorus Hold patient's DOAC at this time due to known hematoma resume DOAC when recommended by General surgery Service General surgery cleared patient for discharge with outpatient follow up. Atrial Fibrillation Rhythm is atrial fibrillation to atrial flutter to sinus rhythm Metoprolol 25mg by mouth twice daily. Hold patient's DOAC (eliquis) at this time due to known hematoma , resume DOAC when recommended by General surgery Service Hydralazine 10 mg IV every 4 hours for systolic blood pressure greater than 160 mmHg Atorvastatin 40 mg by mouth once daily Urinary Retention Consulted urology. CT Urogram was done. Urology followed up and ordered CT Pelvis. Results awaited Onychomycosis Waiting podiatry consult. Hypomagnesemia Magnesium 1.90 Replace magnesium as per protocol GI prophylaxis, famotidine DVT prophylaxis, Efrain's and SCDs PHYSICIAN RESIDENT STATEMENT I was present with the resident during the History and Physical exam and I have reviewed the resident's note. This case was discussed with the resident and I agree with the history, physical exam and medical decision making as documented. Additions/exceptions/observations were directly added to the notes. Efrain Daley MD, SYED M MD Jan 30, 2025 16:56
[2025-01-31] VITALS (7 sets, daily range): BP systolic 123–154; BP diastolic 69–85; PULSE 70–100; RESP 16–22; TEMP 97.7–98.2; O2SAT 94–97
--- NOTE | 2025-01-31 03:11 | CONS ---
HISTORY OF PRESENT ILLNESS: The patient is very pleasant 84-year-old white female admitted to the hospital on 01/27/2025 with fever, shortness of breath, swelling to left shoulder status post mastectomy. She presented with fever, tachycardia. She is status post 2 weeks from bilateral mastectomy. Atrial fibrillation, arthritis, breast cancer, type 2 diabetes, gastroesophageal reflux disease, elevated cholesterol, hypertension, hypothyroidism, neoplasm of the thyroid, sleep apnea, appendectomy, hysterectomy, mastectomy, left knee replacement, thyroidectomy, history of plantar fasciitis, heel spurs. The patient is concerned of heel pain on her right. She is concerned of elongated thickened toenails to her feet bilaterally. The patient has shown negative status for type A influenza, type B influenza, COVID, and Group A strep. The patient is being followed for left chest hematoma. Breast cancer status post mastectomy. Paroxysmal atrial fibrillation on chronic anticoagulation therapy. The patient was evaluated by General Surgery Service and evaluated for left anterior chest wall hematoma. PAST MEDICAL HISTORY: Atrial fibrillation, on chronic anticoagulation therapy with Eliquis, thyroid cancer, cystic ankle tumor, arthritis, hypertension, hyperlipidemia, history of right heel spur. PAST SURGICAL HISTORY: Appendectomy, hysterectomy, mastectomy, left knee replacement, thyroidectomy. REVIEW OF SYSTEMS: CONSTITUTIONAL: No chills, no fevers, no night sweats, no nausea, vomiting, no diarrhea. HEENT: No problems with her eyes or ears, nose or throat. CARDIOVASCULAR: The patient has atrial fibrillation, on chronic anticoagulation therapy. ENDOCRINE: Thyroid cancer. PSYCHIATRIC: Denies any depression. MUSCULOSKELETAL: Ankle cyst, plantar fasciitis, heel spur syndrome on the right. INTEGUMENT: She has onychomycosis, onychogryphosis to her nails. PHYSICAL EXAMINATION: EXTREMITIES: She has palpable pedal pulses. She has elongated, thickened brittle graft toenails x 10 with subungual debris. She has pain on palpation in the plantar medial aspect of the right heel. She has good pedal and ankle joint range of motion. Reflexes diminished. Muscle strength intact. LABORATORY DATA: White count 7.1, H and H 9.8, 30.0, platelets 146, neutrophils 67.0, BUN and creatinine level 7 and 0.5, glucose 91. ASSESSMENT: Status post mastectomy, the patient is being followed for anterior wall hematoma. Atrial fibrillation on chronic anticoagulation therapy with Eliquis. Thyroid cancer, cystic angle tumor, arthritis, hypertension, hyperlipidemia, onychomycosis, onychomycosis, right plantar fasciitis, right heel spur syndrome, status post mastectomy, left knee replacement, thyroidectomy. PLAN: I debrided the patient's toenails today extensively reducing the length and girth of pink healthy tissue and removed subungual debris x 10 with a nail clipper and dermal curette without incident. I will order the patient a medium CAM walking boot and have her use it to ambulate with it on the right side, full weightbearing with a walker with physical therapy to address her plantar fasciitis, heel spur syndrome on that right side. From my standpoint, the patient will be transferred to [facility] when okay with other services. TID: [id number] RECEIPT: [id number] MTDOsman
[2025-01-31 05:15] LABS: IMMATURE GRANULOCYTE ABSOLUTE 0.04 K/uL (0-1); NUCLEATED RED BLOOD CELLS 0.0 % (0.0-0.19); PLATELET COUNT (AUTO) 164 K/uL (130-400); RED BLOOD CELL COUNT(AUTO) 3.10 MIL/uL (4.00-5.50); RED CELL DISTRIBUTION WIDTH 16.6 % (11.0-15.5); WHITE BLOOD COUNT (AUTO) 6.9 K/uL (4.8-10.8)
[2025-01-31 05:31] LABS: CREATININE 0.5 mg/dL (0.5-1.0); GLOMERULAR FILTR. RATE CALC 91.0 mL/min (>90); GLUCOSE,RANDOM 101.0 mg/dL (70-105); SODIUM SERUM 141.0 mmol/L (136-145); UREA NITROGEN, BLOOD 13.0 mg/dL (7-18)
--- NOTE | 2025-01-31 10:40 | CONS ---
REQUESTING PHYSICIAN: Efrain Daley MD REASON FOR CONSULTATION: Urinary retention. HISTORY OF PRESENT ILLNESS: This is an 84-year-old female admitted to the hospital because of a 2-week history of fever. The patient is status post mastectomy left side 01/21/2025, and noted to have flap hematoma anterior chest wall. Consultation with Urology requested because of urinary retention. The patient apparently was in assisted, a alf facility with Mccray catheter in place. The patient's Mccray catheter is draining satisfactorily. Her noncontrast CT scan shows a large cystic structure above the bladder with a Mccray catheter in the bladder. CT scan was ordered by me. I have reviewed the images and I have ordered now for her to have a cystogram to establish whether there is any communication between the cystic pelvic mass in her bladder at all. The patient is encountered lying in bed comfortably offering no complaints. Mccray catheter draining clear urine. No blood. ALLERGIES: Recorded as none. MEDICATIONS: Include promethazine, Eliquis, p.r.n. morphine for pain, Zosyn, IV antibiotics, hydralazine, atorvastatin. Additional home medications include amlodipine, Eliquis, cetirizine and lisinopril. PAST MEDICAL HISTORY: Atrial fibrillation, on Eliquis; hypertension; hyperlipidemia; arthritis. PAST SURGICAL HISTORY: Mastectomy, cystic ankle tumor, and thyroid cancer. Past surgical history is significant for thyroidectomy in 2017, knee replacement and mastectomy. SOCIAL HISTORY: Does not smoke or drink. FAMILY HISTORY: Negative for kidney stones. REVIEW OF SYSTEMS: No shortness of breath or chest pain. Her appetite is poor. She has no headaches or dizziness. No nosebleeds. She has some difficulty walking. No joint pain, joint swelling, or limitation of movement. PHYSICAL EXAMINATION: GENERAL: Elderly female, in no acute distress. VITAL SIGNS: Temperature is 98, blood pressure is 127/62, with a pulse of 90. NECK: No adenopathy or supraclavicular masses palpable. LUNGS: Basilar crepitations. She has stigmata with Olu-Phipps drains of left mastectomy. ABDOMEN: Full, soft and nontender. BACK: No CVA tenderness. EXTERNAL GENITALIA: Mccray catheter in place draining clear urine. LABORATORY DATA: The patient's available laboratory data reviewed in detail. CT scan of the abdomen and pelvis. ASSESSMENT: * Urinary retention, catheter dependent. 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 * Pelvic mass urinary retention. RECOMMENDATIONS: * The patient will have a cystogram performed. * Maintain Mccray catheter in place. * The patient's concerns and questions have been answered. Thank you for the opportunity of providing Urology consultation on your patient. ADDENDUM Dictation regarding the patient's laboratory data once available will be dictated as well. White count is 8.7, hematocrit is 24, platelet count is 90. The patient's sodium is 141, potassium 3.3 while her BUN and creatinine are 9/0.4. Her urinalysis shows clear yellow urine, specific gravity of 1.016, pH of 6. She has some red cells and white cells in the urine. No bacteria. Nitrites are negative. TID: [id number] RECEIPT: [id number]
--- NOTE | 2025-01-31 10:44 | PN ---
This is a 84-year-old female status post left mastectomy presentation of left surgical site hematoma Interval history: This 84-year-old female seen in her room resting Overnight increasing collection over left chest surgical site noted Patient is kept overnight for continued management of urinary retention Patient has just returned from CT of abdomen and pelvis Vital signs remained stable WBCs and hemoglobin unremarkable Patient is still has not been started on anticoagulation Nursing continues to keep strict I's and O's of JUANITO drains with no significant increase noted in output Physical exam General: Awake alert and oriented Heart: Regular rate and rhythm} Lungs: Clear to auscultation no distress Abdomen: [Soft, nontender, nondistended Left chest with slight elevation in fluid collection to hematoma site Assessment : This is an 84-year-old female status post left mastectomy with postoperative hematoma Plan: At this point in time we will continue with pressure bandaging We will await CT findings Continue to hold anticoagulation Continue with ice packs over region Recheck hemoglobin in the a.m. Dr. Vee has been informed the patient's status and we will see patient later today No immediate surgical intervention planned at this time Await for urology recommendations before discharge Vitals/Labs Vital Signs Date Time Temp Pulse Resp B/P (MAP) Pulse Ox O2 Delivery O2 Flow Rate FiO2 01/31/25 08:01 98.2 70 16 154/85 95 Room Air 01/30/25 20:00 0 21 Laboratory Tests 01/31/25 04:50 Medications Current Medications Lactated Ringer's 2,000 ml BOLUS STAT IV Last administered on 01/28/25at 00:18; Start 01/27/25 at 23:05; Stop 01/27/25 at 23:09; Status DC Iohexol 50 ml STK-MED ONCE IV; Start 01/28/25 at 01:27; Stop 01/28/25 at 01:28; Status DC Cefazolin Sodium 1 gm ONCE STAT IVP Last administered on 01/28/25at 03:11; Start 01/28/25 at 02:45; Stop 01/28/25 at 02:48; Status DC Potassium Chloride 100 ml @ 50 mls/hr AD PRN IV Last administered on 01/29/25at 08:44; Start 01/28/25 at 05:30; Stop 02/27/25 at 05:29 Acetaminophen 650 mg Q6H PRN PO Last administered on 01/30/25at 18:17; Start 01/28/25 at 05:30; Stop 02/27/25 at 05:29 Famotidine 20 mg DAILY PO Last administered on 01/31/25at 08:27; Start 01/28/25 at 09:00; Stop 02/27/25 at 08:59 Hydralazine HCl 10 mg Q6H PRN IV; Start 01/28/25 at 05:30; Stop 02/27/25 at 05:29 Lactated Ringer's 1,000 ml @ 75 mls/hr [id number] IV Last administered on 01/29/25at 08:43; Start 01/28/25 at 05:30; Stop 02/27/25 at 05:29 Morphine Sulfate 2 mg Q4H PRN IVP; Start 01/28/25 at 05:30; Stop 02/04/25 at 05:29 Ondansetron HCl 4 mg Q6H PRN IV; Start 01/28/25 at 05:30; Stop 02/27/25 at 05:29 Lactated Ringer's 1,959 ml @ 653 mls/hr ONCE ONCE IV Last administered on 01/28/25at 06:23; Start 01/28/25 at 05:30; Stop 01/28/25 at 08:29; Status DC Metoprolol Tartrate 12.5 mg BID PO Last administered on 01/29/25at 08:43; Start 01/28/25 at 09:00; Stop 01/29/25 at 10:30; Status DC Atorvastatin Calcium 40 mg HS PO Last administered on 01/30/25at 22:09; Start 01/28/25 at 21:00; Stop 02/27/25 at 20:59 Magnesium Sulfate 50 ml @ 0 mls/hr PROTOCOL PRN IV; Start 01/29/25 at 09:00; Stop 02/28/25 at 08:59 Metoprolol Tartrate 25 mg BID PO Last administered on 01/31/25at 08:27; Start 01/29/25 at 21:00; Stop 02/28/25 at 20:59 Cetirizine HCl 10 mg DAILY PO Last administered on 01/31/25at 08:27; Start 01/30/25 at 09:00; Stop 03/01/25 at 08:59 Home Med (D-Methorphan Hb/Prometh HCl (Promethazine... Q4HPRN PRN PO; Start 01/29/25 at 12:30; Stop 02/28/25 at 12:29 Iohexol 35,000 mg STK-MED ONCE IV; Start 01/29/25 at 18:33; Stop 01/29/25 at 18:33; Status DC Trazodone HCl 50 mg HS PO Last administered on 01/30/25at 22:09; Start 01/29/25 at 21:00; Stop 02/28/25 at 20:59 Lisinopril 40 mg DAILY PO Last administered on 01/31/25at 08:27; Start 01/30/25 at 09:00; Stop 03/01/25 at 08:59 Potassium Chloride 20 meq AD PRN PO; Start 01/30/25 at 06:30; Stop 03/01/25 at 06:29 Potassium Chloride 20 meq AD PRN PO Last administered on 01/31/25at 08:31; Start 01/30/25 at 06:30; Stop 03/01/25 at 06:29 MINE HALE Jr. Jan 31, 2025 10:43
--- NOTE | 2025-01-31 14:04 | PN ---
[facility] PROGRESS NOTE Date of Service: Jan 31, 2025 Time of Service: 14:03 SUBJECTIVE: 01/28/25 - Patient seen at bedside in ED 10 with daughter. Patient afebrile and saturating well on room air. Patient is comfortable and in no acute distress. Urinalysis shows proteinuria, small occult blood, negative for leukocytes and nitrates. Remarkable labs: white count within normal limits, hemoglobin 8.1, platelets 90K, potassium 3.3 - replacement protocol in place, BUN 9, creatinine 0.98. Pending surgery recommendations. Pending Cardiology recommendations for continuing anticoagulation in the setting of patient left hematoma. 01/29/2025: Patient seen at bedside with daughter. Patient afebrile and saturating well on room air. She complains of pain and soreness on her left chest. The chest drain is in places that had 30ml blood in past 12 hours. The daughter mentions that Dr Vee, her primary surgeon, might come today to examine her. The patient is vitally stable. 01/30/2025: Patient seen at bedside with daughter. Patient afebrile and saturating well on room air. She complains of pain and soreness on her left chest. Dr Vee rounded yesterday and cleared her for discharge from surgery point of view. The patient is vitally stable. She is waiting for urology and podiatry consult. 01/31/2025: Patient seen at bedside with daughter. Patient afebrile and saturating well on room air. She complains of pain and soreness on her left chest. Podiatry visited yesterday and clipped her toe nails and examined her foot. Patient is vitally stable with 123/71 blood pressure. Podiatry recommended CAM boot for her, for which physical therapy is consulted. Urinalysis was ordered for urinary tract infection. General surgery saw the patient and recommended a ultrasound guided fine needle aspiration. REVIEW OF SYSTEMS CONSTITUTIONAL: Denies fevers, chills, or night sweats. No unintentional weight loss reported. NEUROLOGICAL: Denies headache, amaurosis fugax, motor weakness, sensory deficit, vertigo/spinning sensation, gait abnormalities, or tremors. ENT: No hearing loss, otalgia, otorrhea, rhinitis, rhinorrhea, hoarseness, or sore throat. CARDIOVASCULAR: Denies any exertional angina, dyspnea on exertion, orthopnea, paroxysmal nocturnal dyspnea, palpitations, life-threatening arrhythmias, claudication. PULMONARY: Denies any shortness of breath, cough, phlegm/sputum, hemoptysis, pleuritic chest pain. SLEEP: Denies morning headaches, daytime somnolence or napping. Denies difficulty falling asleep, staying asleep, waking from sleep. Denies knowledge of snoring. GASTROINTESTINAL: Denies any type of dysphagia to either liquids or solids. Denies nausea, vomiting, pyrosis, early satiety, abdominal pain, diarrhea, constipation, or changes in stool consistency or caliber. Denies coffee-ground emesis, hematemesis, hematochezia, or melanotic stools. GENITOURINARY: Denies frequency, urgency, nocturia, hematuria or incontinence (Storage/Irritative symptoms.) Low urinary stream, straining to void, urinary intermittency or hesitancy, splitting of the voiding stream, terminal dribbling. ENDOCRINOLOGIC: Denies polyuria, polydipsia, polyphagia or heat/cold intolerances. PHYSICAL EXAM GENERAL APPEARANCE: The patient is awake, alert, and oriented, in no acute cardiopulmonary distress. NEUROLOGICAL: Cranial nerves II-XII grossly intact. Motor is 5/5 in bilateral upper and lower extremities proximal to distal. No sensory deficits. HEENT: Face is symmetric. Pupils are equal and reactive. Extraocular movements are intact. NECK: Supple. No JVD. No thyromegaly. No submental, submandibular, pre- /postauricular, occipital or supraclavicular lymphadenopathy. CHEST: Normal chest expansion. No Telemetry. Hematoma drain on the left chest wall. Chest id tightly wrapped in bandage. LUNGS: Absence of any rales, rhonchi or any wheezing. CARDIOVASCULAR: Regular. S1 and S2 normal. No appreciable rubs, murmurs or gallops. ABDOMEN: Soft, nontender, and nondistended. There is no rebound, voluntary guarding, or rigidity. EXTREMITIES: Non-edematous and not cyanotic. No clubbing. Good capillary refill. Onychomycosis. SKIN: No skin breakdown. Vital Signs (last 8hr) Date Time Temp Pulse Resp B/P (MAP) Pulse Ox O2 Delivery O2 Flow Rate FiO2 01/31/25 12:00 97.9 77 16 131/77 96 Room Air 8/13/25 08:01 98.2 70 16 154/85 95 Room Air LABS: Laboratory: Test 01/31/25 04:50 01/30/25 05:43 Range/Units White Blood Count 6.9 4.8-10.8 K/uL Red Blood Count 3.10 L 4.00-5.50 MIL/uL Hemoglobin 9.3 L 12.0-16.0 g/dL Hematocrit 28.5 L 36-48 % Mean Corpuscular Volume 91.9 79-99 fL Mean Corpuscular Hemoglobin 30.0 27.0-33.0 pg Mean Corpuscular Hemoglobin Concent 32.6 32.0-36.0 g/dL Red Cell Distribution Width 16.6 H 11.0-15.5 % Platelet Count 164 130-400 K/uL Mean Platelet Volume 12.5 H 7.5-10.5 fL Immature Granulocyte % (Auto) 0.6 0-1 % Neutrophils (%) (Auto) 63.6 40.0-77.0 % Lymphocytes (%) (Auto) 17.2 L 21.0-51.0 % Monocytes (%) (Auto) 12.5 3.0-13.0 % Eosinophils (%) (Auto) 5.5 0.0-8.0 % Basophils (%) (Auto) 0.6 0.0-5.0 % Neutrophils # (Auto) 4.4 1.8-7.7 K/uL Lymphocytes # (Auto) 1.2 1.0-4.8 K/uL Monocytes # (Auto) 0.9 0.1-1.0 K/uL Eosinophils # (Auto) 0.38 0.00-0.70 K/uL Basophils # (Auto) 0.04 0.00-0.20 K/uL Absolute Immature Granulocyte (auto 0.04 0-1 K/uL Nucleated Red Blood Cells 0.0 0.0-0.19 % Sodium Level 141 136-145 mmol/L Potassium Level 3.6 3.5-5.1 mmol/L Chloride Level 107 101-111 mmol/L Carbon Dioxide Level 29 21-32 mmol/L Blood Urea Nitrogen 13 7-18 mg/dL Creatinine 0.5 0.5-1.0 mg/dL Glomerular Filtration Rate Calc 91 >90 mL/min Random Glucose 101 70-105 mg/dL Total Calcium 8.7 8.5-10.1 mg/dL Magnesium Level 1.90 1.80-2.40 mg/dL Phosphorus Level 2.7 2.5-4.9 mg/dL Current Medications Medications (Trade) Dose Ordered Sig/Rex Route PRN Reason Start Time Stop Time Status Last Admin Dose Admin Acetaminophen (TYLenol 325MG TAB) 650 mg Q6H PRN PO TEMPERATURE GREATER THAN 101.5 01/28/25 05:30 02/27/25 05:29 01/30/25 18:17 650 MG Atorvastatin Calcium (LIPItor 40MG) 40 mg HS PO 01/28/25 21:00 02/27/25 20:59 01/30/25 22:09 40 MG Cefazolin Sodium (ANCEF 1 gm vial) 1 gm ONCE STAT IVP 01/28/25 02:45 01/28/25 02:48 DC 01/28/25 03:11 1 GM Cetirizine HCl (ZYRtec 5 MG TABLET) 10 mg DAILY PO 01/30/25 09:00 03/01/25 08:59 01/31/25 08:27 10 MG Famotidine (Pepcid 20mg Tab) 20 mg DAILY PO 01/28/25 09:00 02/27/25 08:59 01/31/25 08:27 20 MG Home Med (Home Medication) (D-Methorphan Hb/Prometh HCl (Promethazine... Q4HPRN PRN PO cough 01/29/25 12:30 02/28/25 12:29 Hydralazine HCl (APRESOLine 20MG INJ) 10 mg Q6H PRN IV For:SBP above 160;DBP above 90 01/28/25 05:30 02/27/25 05:29 Lactated Ringer's 1,000 ml @ 75 mls/hr [id number] IV 01/28/25 05:30 02/27/25 05:29 01/29/25 08:43 75 MLS/HR Lactated Ringer's (Lactated Ringers 1000ml) 2,000 ml BOLUS STAT IV 01/27/25 23:05 01/27/25 23:09 DC 01/28/25 00:18 2,000 ML Lisinopril (Prinivil 40mg) 40 mg DAILY PO 01/30/25 09:00 03/01/25 08:59 01/31/25 08:27 40 MG Magnesium Sulfate 50 ml @ 0 mls/hr PROTOCOL PRN IV MAGNESIUM PROTOCOL 01/29/25 09:00 02/28/25 08:59 Metoprolol Tartrate (loprESSOR) 12.5 mg BID PO 01/28/25 09:00 01/29/25 10:30 DC 01/29/25 08:43 12.5 MG Metoprolol Tartrate (loprESSOR) 25 mg BID PO 01/29/25 21:00 02/28/25 20:59 01/31/25 08:27 25 MG Morphine Sulfate (morPHINE 2MG SYG) 2 mg Q4H PRN IVP SEVERE PAIN (7-10) 01/28/25 05:30 02/04/25 05:29 Ondansetron HCl (zoFRAN 4MG INJ) 4 mg Q6H PRN IV NAUSEA/VOMITING 01/28/25 05:30 02/27/25 05:29 Potassium Chloride 100 ml @ 50 mls/hr AD PRN IV POTASSIUM PROTOCOL 01/28/25 05:30 02/27/25 05:29 01/29/25 08:44 50 MLS/HR Potassium Chloride (K-Dur/Klor-Con 20meq) 20 meq AD PRN PO POTASSIUM PROTOCOL 01/30/25 06:30 03/01/25 06:29 01/31/25 08:31 20 MEQ Potassium Chloride (KCl 10% Elixir 20meq/15ml) 20 meq AD PRN PO POTASSIUM PROTOCOL 01/30/25 06:30 03/01/25 06:29 Trazodone HCl (DesyREL/OlepTRO) 50 mg HS PO 01/29/25 21:00 02/28/25 20:59 01/30/25 22:09 50 MG DIAGNOSTICS / RADIOLOGY: [ ] ASSESSMENT: Sepsis, POA Left chest wall hematoma, POA Hypokalemia, POA Bilateral pleural effusions, POA AFib on chronic anticoagulation with Eliquis, history of thyroid cancer hypertension hyperlipidemia PLAN: Left chest wall hematoma Fluid resuscitation with lactated Ringer's 30 mL/kg Check blood culture, follow up with the results. No growth for [address] of the chest that shows left chest wall hematoma and pleural effusions. As needed analgesia with morphine. JUANITO drain to bulb suction Replace potassium per hospital protocol Supplemental oxygen to maintain O2 saturation greater 92%. General surgery ordered ultrasound guided fine needle aspiration for fluid accumulation. Awaiting procedure. Atrial Fibrillation Rhythm is atrial fibrillation to atrial flutter to sinus rhythm Metoprolol 25mg by mouth twice daily. Hold patient's DOAC (eliquis) at this time due to known hematoma , resume DOAC when recommended by General surgery Hydralazine 10 mg IV every 4 hours for systolic blood pressure greater than 160 mmHg Atorvastatin 40 mg by mouth once daily Urinary Retention Consulted urology. CT Urogram was done. The CT showed filling of the bladder, no masses seen. Large soft tissue hematoma in the left anterior chest wall was seen with a surgical drain in place. It also showed large stable biloculated cystic lesion within the pelvis Urology followed up and ordered CT Pelvis. Results awaited Onychomycosis Waiting podiatry consult. The leather etcher debrided the patient's toenails today extensively reducing the length and girth of pink healthy tissue and removed subungual debris with a nail clipper and dermal curette without incident. The leather etcher ordered the patient a medium CAM walking boot and have her use it to ambulate with it on the right side, full weight bearing with a walker with physical therapy to address her plantar fasciitis, heel spur syndrome on that right side. Hypomagnesemia Magnesium 1.90 Replace magnesium as per protocol GI prophylaxis, famotidine DVT prophylaxis, Efrain's and SCDs PHYSICIAN RESIDENT STATEMENT I was present with the resident during the History and Physical exam and I have reviewed the resident's note. This case was discussed with the resident and I agree with the history, physical exam and medical decision making as documented. Additions/exceptions/observations were directly added to the notes. Efrain Daley MD, SYED M MD Jan 31, 2025 14:04
--- NOTE | 2025-01-31 15:28 | HMCIMG ---
Ultrasound guided left BREAST HEMATOMA ASPIRATION INDICATION: Post mastectomy left breast hematoma for aspiration COMPARISON: None available FINDINGS: After informed consent, the left breast was prepped and draped in the usual sterile fashion. Using ultrasound guidance and sterile technique, the cyst was located. Both superficial and deep anesthetic was given with 1% Lidocaine. An 18-gauge needle was then advanced into the hematoma and multiple attempts were made only few cc of thick old blood was aspirated. This was attempted with a 14-gauge needle and again 3 to 4 cc of thick hematoma aspirated. IMPRESSION: Hematomas appears to be not liquid but solid and multiple attempts were made to aspiration but unsuccessful. This was discussed with the referring physician.
--- NOTE | 2025-01-31 15:30 | NUR ---
U/S GD RT BREAST ASPIRATION PROCEDURE PERFORMED BY DR CORMIER. PUNCTURE SITE LT BREAST AND PATIENT TOLERATED PROCEDURE WELL. UNABLE TO ASPIRATE COLLECTION. DR CORMIER SPOKE DIRECTLY WITH DR LUQUE VIA PHONE. END OF PROCEDURE AT 1510. DRESSING APPLIED. NO BLEEDING NOTED. REPORT GIVEN TO CHARLOTTE SHEPHERD AND PATIENT TRANSPORTED TO [facility] VIA BED WITH DAUGHTER. AAO X3 WITH NO C/O PAIN.
[2025-01-31 16:02] LABS: APPEARANCE,URINE CLEAR (CLEAR); GLUCOSE, URINE (UA) NEGATIVE (NEGATIVE); LEUKOCYTE ESTERASE ,URINE NEGATIVE Leu/uL (NEGATIVE); NITRATE,URINE 2+ (NEGATIVE); OCCULT BLOOD,URINE LARGE (NEGATIVE)
[2025-01-31 16:03] LABS: ADD UA MICROSCOPIC YES
[2025-01-31 16:25] LABS: SQUAMOUS EPITHELIAL CELL,UR RARE /HPF (0-2)
--- NOTE | 2025-01-31 20:49 | PN ---
SUBJECTIVE: The patient is an 84-year-old diabetic female, afebrile, white count is within normal limits, who is followed up for right heel pain, onychomycosis, status post mastectomy, being followed for atrial fibrillation, arthritis, breast cancer, type 2 diabetes, gastroesophageal reflux disease, elevated cholesterol, hypertension, hyperthyroidism, , sleep apnea, appendectomy, hysterectomy, mastectomy, left knee replacement, thyroidectomy, history of plantar fascia and heel spurs, and concern of right heel pain. The patient had a CAM walking boot ordered and had physical therapy to ambulate the patient with the use of a walker. OBJECTIVE: EXTREMITIES: On examination today, palpable pedal pulses. She has pain on palpation on the plantar medial aspect of the right heel. She has good pedal and ankle joint range of motion. ASSESSMENT: Status post mastectomy. The patient is being followed for anterior wall hematoma, atrial fibrillation, on anticoagulation therapy with Eliquis, thyroid cancer, hypertension, hyperlipidemia, onychomycosis, onychogryphosis, right plantar fasciitis, right heel spur, status post mastectomy, left knee replacement, thyroidectomy. PLAN: We will continue to have the physical therapy ambulate the patient with a CAM walking boot on that right side for her plantar fasciitis. From my standpoint, she can be transferred to [facility] . TID: [id number] RECEIPT: [id number] BRANDON
[2025-02-01] VITALS (7 sets, daily range): BP systolic 122–158; BP diastolic 67–86; PULSE 70–109; RESP 18–20; TEMP 97.9–98.7; O2SAT 94–95
[2025-02-01 05:57] LABS: IMMATURE GRANULOCYTE ABSOLUTE 0.07 K/uL (0-1); NUCLEATED RED BLOOD CELLS 0.0 % (0.0-0.19); PLATELET COUNT (AUTO) 187 K/uL (130-400); RED BLOOD CELL COUNT(AUTO) 3.14 MIL/uL (4.00-5.50); RED CELL DISTRIBUTION WIDTH 16.3 % (11.0-15.5); WHITE BLOOD COUNT (AUTO) 10.3 K/uL (4.8-10.8)
[2025-02-01 06:15] LABS: CREATININE 0.5 mg/dL (0.5-1.0); GLOMERULAR FILTR. RATE CALC 91.0 mL/min (>90); GLUCOSE,RANDOM 99.0 mg/dL (70-105); SODIUM SERUM 141.0 mmol/L (136-145); UREA NITROGEN, BLOOD 11.0 mg/dL (7-18)
--- NOTE | 2025-02-01 07:19 | PN ---
SUBJECTIVE: The patient is a very pleasant 84-year-old diabetic, Latin-Maur[place] female, ambulating now with the use of a CAM walking boot and a walker with physical therapy. She has been followed for plantar fasciitis to the right heel. The patient is being followed for the problems list, includes breast cancer, status post mastectomy, atrial fibrillation, right heel pain, hypertension, elevated cholesterol, hypothyroidism, diabetes type 2, sleep apnea. OBJECTIVE: On examination today, she has palpable pedal pulses. She has pain to palpation to the plantar medial aspect of the right heel. Good pedal and ankle joint range of motion. Flexible pes planus foot type. ASSESSMENT: Status post mastectomy, being followed for anterior wall hematoma; atrial fibrillation, on anticoagulation therapy with Eliquis; thyroid cancer; hypertension; hyperlipidemia; onychomycosis; onychogryphosis; right plantar fasciitis; right heel spur; status post knee replacement; thyroidectomy. PLAN: We will continue to have physical therapy to work with ambulating the patient with a CAM walking boot on the right and a walker to address her plantar fasciitis. From my standpoint, she will be transferred to [facility] when okay with other services. TID: [id number] RECEIPT: [id number]
[2025-02-01] MEDS: MAGNESIUM 2GM PREMIX 50ML 50 ML IV PRN (09:06)
[2025-02-01] MEDS: ZOSYN 3.375GM +NS 50ML IV SCH ×2 (09:30→18:30)
--- NOTE | 2025-02-01 17:26 | PN ---
[facility] PROGRESS NOTE Date of Service: Feb 01, 2025 Time of Service: 17:25 SUBJECTIVE: 01/28/25 - Patient seen at bedside in ED 10 with daughter. Patient afebrile and saturating well on room air. Patient is comfortable and in no acute distress. Urinalysis shows proteinuria, small occult blood, negative for leukocytes and nitrates. Remarkable labs: white count within normal limits, hemoglobin 8.1, platelets 90K, potassium 3.3 - replacement protocol in place, BUN 9, creatinine 0.98. Pending surgery recommendations. Pending Cardiology recommendations for continuing anticoagulation in the setting of patient left hematoma. 01/29/2025: Patient seen at bedside with daughter. Patient afebrile and saturating well on room air. She complains of pain and soreness on her left chest. The chest drain is in places that had 30ml blood in past 12 hours. The daughter mentions that Dr Luque, her primary surgeon, might come today to examine her. The patient is vitally stable. 01/30/2025: Patient seen at bedside with daughter. Patient afebrile and saturating well on room air. She complains of pain and soreness on her left chest. Dr Luque rounded yesterday and cleared her for discharge from surgery point of view. The patient is vitally stable. She is waiting for urology and podiatry consult. 01/31/2025: Patient seen at bedside with daughter. Patient afebrile and saturating well on room air. She complains of pain and soreness on her left chest. Podiatry visited yesterday and clipped her toe nails and examined her foot. Patient is vitally stable with 123/71 blood pressure. Podiatry recommended CAM boot for her, for which physical therapy is consulted. Urinalysis was ordered for urinary tract infection. General surgery saw the patient and recommended a ultrasound guided fine needle aspiration. 02/01/2025: Patient seen at bedside with daughter. Patient afebrile and saturating well on room air. She complains of pain and soreness on her left chest. Patient urinalysis came back positive for infection, therefore she is started on zosyn. She is planned for a cystogram today by urology. Patient is having the urge to cough but general surgery advised her to refrain from coughing. Started on guaifenesin and encourage adequate oral hydration. General surgery ordered ultrasound guided fine needle aspiration for fluid accumulation yesterday but the hematoma appeared solid and multiple attempts were made for aspiration but were unsuccessful. Surgery is following the patient. REVIEW OF SYSTEMS CONSTITUTIONAL: Denies fevers, chills, or night sweats. No unintentional weight loss reported. NEUROLOGICAL: Denies headache, amaurosis fugax, motor weakness, sensory deficit, vertigo/spinning sensation, gait abnormalities, or tremors. ENT: No hearing loss, otalgia, otorrhea, rhinitis, rhinorrhea, hoarseness, or sore throat. CARDIOVASCULAR: Denies any exertional angina, dyspnea on exertion, orthopnea, paroxysmal nocturnal dyspnea, palpitations, life-threatening arrhythmias, claudication. PULMONARY: Denies any shortness of breath, cough, phlegm/sputum, hemoptysis, pleuritic chest pain. SLEEP: Denies morning headaches, daytime somnolence or napping. Denies difficulty falling asleep, staying asleep, waking from sleep. Denies knowledge of snoring. GASTROINTESTINAL: Denies any type of dysphagia to either liquids or solids. Denies nausea, vomiting, pyrosis, early satiety, abdominal pain, diarrhea, constipation, or changes in stool consistency or caliber. Denies coffee-ground emesis, hematemesis, hematochezia, or melanotic stools. GENITOURINARY: Denies frequency, urgency, nocturia, hematuria or incontinence (Storage/Irritative symptoms.) Low urinary stream, straining to void, urinary intermittency or hesitancy, splitting of the voiding stream, terminal dribbling. ENDOCRINOLOGIC: Denies polyuria, polydipsia, polyphagia or heat/cold intolerances. PHYSICAL EXAM GENERAL APPEARANCE: The patient is awake, alert, and oriented, in no acute cardiopulmonary distress. NEUROLOGICAL: Cranial nerves II-XII grossly intact. Motor is 5/5 in bilateral upper and lower extremities proximal to distal. No sensory deficits. HEENT: Face is symmetric. Pupils are equal and reactive. Extraocular movements are intact. NECK: Supple. No JVD. No thyromegaly. No submental, submandibular, pre-/posta uricular, occipital or supraclavicular lymphadenopathy. CHEST: Normal chest expansion. No Telemetry. Hematoma drain on the left chest wall. Chest id tightly wrapped in bandage. LUNGS: Absence of any rales, rhonchi or any wheezing. CARDIOVASCULAR: Regular. S1 and S2 normal. No appreciable rubs, murmurs or gallops. ABDOMEN: Soft, nontender, and nondistended. There is no rebound, voluntary guarding, or rigidity. EXTREMITIES: Non-edematous and not cyanotic. No clubbing. Good capillary refill. Onychomycosis. SKIN: No skin breakdown. Vital Signs (last 8hr) Date Time Temp Pulse Resp B/P (MAP) Pulse Ox O2 Delivery O2 Flow Rate FiO2 02/01/25 16:00 98.4 78 18 130/78 94 Room Air 02/01/25 12:00 98.4 70 19 140/73 96 Room Air LABS: Laboratory: Test 02/01/25 05:43 01/31/25 15:40 Range/Units White Blood Count 10.3 4.8-10.8 K/uL Red Blood Count 3.14 L 4.00-5.50 MIL/uL Hemoglobin 9.4 L 12.0-16.0 g/dL Hematocrit 29.4 L 36-48 % Mean Corpuscular Volume 93.6 79-99 fL Mean Corpuscular Hemoglobin 29.9 27.0-33.0 pg Mean Corpuscular Hemoglobin Concent 32.0 32.0-36.0 g/dL Red Cell Distribution Width 16.3 H 11.0-15.5 % Platelet Count 187 130-400 K/uL Mean Platelet Volume 12.3 H 7.5-10.5 fL Immature Granulocyte % (Auto) 0.7 0-1 % Neutrophils (%) (Auto) 74.4 40.0-77.0 % Lymphocytes (%) (Auto) 11.4 L 21.0-51.0 % Monocytes (%) (Auto) 9.2 3.0-13.0 % Eosinophils (%) (Auto) 3.5 0.0-8.0 % Basophils (%) (Auto) 0.8 0.0-5.0 % Neutrophils # (Auto) 7.7 1.8-7.7 K/uL Lymphocytes # (Auto) 1.2 1.0-4.8 K/uL Monocytes # (Auto) 1.0 0.1-1.0 K/uL Eosinophils # (Auto) 0.36 0.00-0.70 K/uL Basophils # (Auto) 0.08 0.00-0.20 K/uL Absolute Immature Granulocyte (auto 0.07 0-1 K/uL Nucleated Red Blood Cells 0.0 0.0-0.19 % Sodium Level 141 136-145 mmol/L Potassium Level 3.8 3.5-5.1 mmol/L Chloride Level 107 101-111 mmol/L Carbon Dioxide Level 31 21-32 mmol/L Blood Urea Nitrogen 11 7-18 mg/dL Creatinine 0.5 0.5-1.0 mg/dL Glomerular Filtration Rate Calc 91 >90 mL/min Random Glucose 99 70-105 mg/dL Total Calcium 8.5 8.5-10.1 mg/dL Magnesium Level 1.80 1.80-2.40 mg/dL Urine Color YELLOW YELLOW Urine Appearance CLEAR CLEAR Urine pH 6.0 5.0-8.0 Urine Specific [place] OVER 1.001-1.031 Urine Protein 50 H NEGATIVE mg/dL Urine Glucose (UA) NEGATIVE NEGATIVE mg/dL Urine Ketones NEGATIVE NEGATIVE mg/dL Urine Occult Blood LARGE H NEGATIVE Urine Nitrate 2+ H NEGATIVE Urine Bilirubin NEGATIVE NEGATIVE mg/dL Urine Urobilinogen 0.2 0.2-1.0 mg/dL Urine Leukocyte Esterase NEGATIVE NEGATIVE Nain/uL Urine RBC 26-50 H 0-1 /HPF Urine WBC 51-100 H 0-1 /HPF Urine Squamous Epithelial Cells RARE 0-2 /HPF Urine Bacteria RARE None Seen /HPF Current Medications Medications (Trade) Dose Ordered Sig/Rex Route PRN Reason Start Time Stop Time Status Last Admin Dose Admin Acetaminophen (TYLenol 325MG TAB) 650 mg Q6H PRN PO TEMPERATURE GREATER THAN 101.5 01/28/25 05:30 02/27/25 05:29 01/30/25 18:17 650 MG Atorvastatin Calcium (LIPItor 40MG) 40 mg HS PO 01/28/25 21:00 02/27/25 20:59 01/31/25 21:53 40 MG Cefazolin Sodium (ANCEF 1 gm vial) 1 gm ONCE STAT IVP 01/28/25 02:45 01/28/25 02:48 DC 01/28/25 03:11 1 GM Cetirizine HCl (ZYRtec 5 MG TABLET) 10 mg DAILY PO 01/30/25 09:00 03/01/25 08:59 02/01/25 09:05 10 MG Famotidine (Pepcid 20mg Tab) 20 mg DAILY PO 01/28/25 09:00 02/27/25 08:59 02/01/25 09:05 20 MG Home Med (Home Medication) (D-Methorphan Hb/Prometh HCl (Promethazine... Q4HPRN PRN PO cough 01/29/25 12:30 02/28/25 12:29 Hydralazine HCl (APRESOLine 20MG INJ) 10 mg Q6H PRN IV For:SBP above 160;DBP above 90 01/28/25 05:30 02/27/25 05:29 Lactated Ringer's 1,000 ml @ 75 mls/hr [id number] IV 01/28/25 05:30 02/27/25 05:29 01/29/25 08:43 75 MLS/HR Lactated Ringer's (Lactated Ringers 1000ml) 2,000 ml BOLUS STAT IV 01/27/25 23:05 01/27/25 23:09 DC 01/28/25 00:18 2,000 ML Lisinopril (Prinivil 40mg) 40 mg DAILY PO 01/30/25 09:00 03/01/25 08:59 02/01/25 09:06 40 MG Magnesium Sulfate 50 ml @ 0 mls/hr PROTOCOL PRN IV MAGNESIUM PROTOCOL 01/29/25 09:00 02/28/25 08:59 02/01/25 09:06 25 MLS/HR Metoprolol Tartrate (loprESSOR) 12.5 mg BID PO 01/28/25 09:00 01/29/25 10:30 DC 01/29/25 08:43 12.5 MG Metoprolol Tartrate (loprESSOR) 25 mg BID PO 01/29/25 21:00 02/28/25 20:59 02/01/25 09:06 25 MG Morphine Sulfate (morPHINE 2MG SYG) 2 mg Q4H PRN IVP SEVERE PAIN (7-10) 01/28/25 05:30 02/04/25 05:29 Ondansetron HCl (zoFRAN 4MG INJ) 4 mg Q6H PRN IV NAUSEA/VOMITING 01/28/25 05:30 02/27/25 05:29 Piperacillin Sod/ Tazobactam Sod (Zosyn 3.375gm+NS 50ml) 3.375 gm Q8H IV 02/01/25 09:30 02/01/25 15:32 DC 02/01/25 09:30 3.375 GM Piperacillin Sod/ Tazobactam Sod (Zosyn 3.375gm+NS 50ml) 3.375 gm Q8H IV 02/01/25 18:30 02/11/25 18:29 Potassium Chloride 100 ml @ 50 mls/hr AD PRN IV POTASSIUM PROTOCOL 01/28/25 05:30 02/27/25 05:29 01/29/25 08:44 50 MLS/HR Potassium Chloride (K-Dur/Klor-Con 20meq) 20 meq AD PRN PO POTASSIUM PROTOCOL 01/30/25 06:30 03/01/25 06:29 02/01/25 09:06 20 MEQ Potassium Chloride (KCl 10% Elixir 20meq/15ml) 20 meq AD PRN PO POTASSIUM PROTOCOL 01/30/25 06:30 03/01/25 06:29 Trazodone HCl (DesyREL/OlepTRO) 50 mg HS PO 01/29/25 21:00 02/28/25 20:59 01/31/25 21:53 50 MG DIAGNOSTICS / RADIOLOGY: PATIENT: CLAIRE JAMES MR#: [id number] : 1940 SEX: F AGE: 84 LOCATION: 4DH ORDER 1311 STATUS: ADM IN REPORT#: [id number] SERVICE 1309 REASON: ASIPIRATION OF LEFT BREAST DUE TO FLUID ACCUMLATION ORDERING PHYSICIAN: DMITRY LUQUE MD PROCEDURE: FNA - US FINE NEEDLE ASP IR Ultrasound guided left BREAST HEMATOMA ASPIRATION INDICATION: Post mastectomy left breast hematoma for aspiration COMPARISON: None available FINDINGS: After informed consent, the left breast was prepped and draped in the usual sterile fashion. Using ultrasound guidance and sterile technique, the cyst was located. Both superficial and deep anesthetic was given with 1% Lidocaine. An 18-gauge needle was then advanced into the hematoma and multiple attempts were made only few cc of thick old blood was aspirated. This was attempted with a 14-gauge needle and again 3 to 4 cc of thick hematoma aspirated. IMPRESSION: Hematomas appears to be not liquid but solid and multiple attempts were made to aspiration but unsuccessful. This was discussed with the referring physician. DICTATED BY: WM CORMIER MD DATE: 01/31/251521 ELECTRONICALLY SIGNED BY: WM CORMIER MD DATE: 01/31/251527 ASSESSMENT: Sepsis, POA Left chest wall hematoma, POA Hypokalemia, POA Bilateral pleural effusions, POA AFib on chronic anticoagulation with Eliquis, history of thyroid cancer hypertension hyperlipidemia PLAN: Left chest wall hematoma Fluid resuscitation with lactated Ringer's 30 mL/kg Check blood culture, follow up with the results. No growth for [address] days[address] Review[address] patient's CT of the chest that shows left chest wall hematoma and pleural effusions. As needed analgesia with morphine. JUANITO drain to bulb suction Replace potassium per hospital protocol Supplemental oxygen to maintain O2 saturation greater 92%. General surgery ordered ultrasound guided fine needle aspiration for fluid accumulation. The hematoma appeared solid and multiple attempts were made for aspiration but were unsuccessful. Patient is having the urge to cough but general surgery advised her to refrain from coughing. Started on guaifenesin and encourage adequate oral hydration. Atrial Fibrillation Rhythm is atrial fibrillation to atrial flutter to sinus rhythm Metoprolol 25mg by mouth twice daily. Hold patient's DOAC (eliquis) at this time due to known hematoma , resume DOAC when recommended by General surgery Hydralazine 10 mg IV every 4 hours for systolic blood pressure greater than 160 mmHg Atorvastatin 40 mg by mouth once daily Urinary Retention Consulted urology. CT Urogram was done. The CT showed filling of the bladder, no masses seen. Large soft tissue hematoma in the left anterior chest wall was seen with a surgical drain in place. It also showed large stable biloculated cystic lesion within the pelvis Urology followed up and ordered CT Pelvis. Her noncontrast CT scan shows a large cystic structure above the bladder with a Mccray catheter in the bladder. The urologist have reviewed the images have ordered now for her to have a cystogram to establish whether there is any communication between the cystic pelvic mass in her bladder at all. Awaiting results of cystogram Urinalysis came back positive for infections and she is started on zosyn (day1). Onychomycosis The business architect debrided the patient's toenails today extensively reducing the length and girth of pink healthy tissue and removed subungual debris with a nail clipper and dermal curette without incident. The business architect ordered the patient a medium CAM walking boot and have her use it to ambulate with it on the right side, full weight bearing with a walker with physical therapy to address her plantar fasciitis, heel spur syndrome on that right side. Physical therapy said that they will continue to work with ambulating the patient with a CAM walking boot on the right and a walker to address her plantar fasciitis. Hypomagnesemia Magnesium 1.80 Replace magnesium as per protocol GI prophylaxis, famotidine DVT prophylaxis, Efrain's and SCDs PHYSICIAN RESIDENT STATEMENT I was present with the resident during the History and Physical exam and I have reviewed the resident's note. This case was discussed with the resident and I agree with the history, physical exam and medical decision making as documented. Additions/exceptions/observations were directly added to the notes. Efrain Daley MD, SYED M MD Feb 01, 2025 17:26
--- NOTE | 2025-02-01 17:58 | HMCIMG ---
EXAMINATION: CT Pelvis without IV contrast CLINICAL HISTORY: Patient undergoing cystogram to evaluate suspected bladder diverticulum. COMPARISON: CT dated January 29, 2025. CONTRAST: Without intravenous contrast. TECHNIQUE: Axial computed tomography images of the pelvis without intravenous contrast. Sagittal and coronal reformatted images submitted for interpretation. FINDINGS: APPENDIX: No evidence of acute appendicitis on CT examination. PERITONEUM: No free fluid. No free air. LYMPH NODES: No lymphadenopathy is evident. REPRODUCTIVE: The uterus is not visualized, likely postsurgical status. Both ovaries are not visualized separately. VASCULATURE: No evidence of abdominal aortic aneurysm. BONES: No aggressive appearing osseous lesion. No acute osseous pathology is evident. URINARY BLADDER: Stable, well-defined bilocular cystic lesion within the pelvis measuring approximately 8.3 x 12.1 x 11.2 cm, posterior to the urinary bladder and abutting and displacing the rectosigmoid colon. The cystic lesion does not fill with contrast. Therefore, this does not represent a bladder diverticulum A Mccray catheter within the urinary bladder lumen. Air pockets in the bladder lumen are related to recent catheterization. No extravasation of contrast from the bladder. No evidence of bladder wall perforation. No intraluminal filling defect or lesion. BOWEL: Rectosigmoid colon displaced by an adjacent pelvic cystic lesion. No bowel obstruction. No wall thickening or pericolonic inflammatory changes. IMPRESSION: Stable bilocular cystic lesion in the pelvis measuring approximately 8.3 x 12.1 x 11.2 cm. This lesion does not fill with contrast and, therefore, does not represent a bladder diverticulum. Ovarian neoplasm should be excluded. No intraluminal filling defect or lesion in the urinary bladder. No evidence of contrast extravasation or bladder perforation on CT cystogram. /[place]
[2025-02-02] VITALS (9 sets, daily range): BP systolic 135–158; BP diastolic 73–86; PULSE 81–110; RESP 17–20; TEMP 98.1–98.8; O2SAT 95–96
[2025-02-02 04:47] LABS: IMMATURE GRANULOCYTE ABSOLUTE 0.07 K/uL (0-1); NUCLEATED RED BLOOD CELLS 0.0 % (0.0-0.19); PLATELET COUNT (AUTO) 205 K/uL (130-400); RED BLOOD CELL COUNT(AUTO) 2.98 MIL/uL (4.00-5.50); RED CELL DISTRIBUTION WIDTH 16.4 % (11.0-15.5); WHITE BLOOD COUNT (AUTO) 9.0 K/uL (4.8-10.8)
[2025-02-02 05:07] LABS: CREATININE 0.5 mg/dL (0.5-1.0); GLOMERULAR FILTR. RATE CALC 91.0 mL/min (>90); GLUCOSE,RANDOM 96.0 mg/dL (70-105); SODIUM SERUM 140.0 mmol/L (136-145); UREA NITROGEN, BLOOD 8.0 mg/dL (7-18)
--- NOTE | 2025-02-02 07:03 | PN ---
SUBJECTIVE: The patient is followed up for diabetes, sepsis, left chest hematoma, hypokalemia, debility, right heel pain, onychomycosis, onychogryphosis. White count 9.0, H and H are 9.1 and 27.4 and platelets 205. The patient has been receiving IV Zosyn. Physical Therapy has been consulted to ambulate the patient with a CAM walking boot on the right with the use of a walker. She is being evaluated for possible transfer to [facility]. She has a concern of pain to her left chest. The patient's urinalysis came back positive for infection for which she had been started on Zosyn. There is a plan for a cystogram by Urology. Attempts were made to aspirate suspected chest hematoma, which were unsuccessful. Surgery is following the patient. The aspiration was unsuccessful. The hematoma appears to be solid and multiple attempts were made unsuccessful to aspirate. The patient is being followed for sepsis on admission, left chest wall hematoma, hypokalemia, bilateral pleural effusions, atrial fibrillation, on chronic anticoagulation therapy with Eliquis, diabetes, history of thyroid cancer, hypertension, hyperlipidemia, plantar fascitis to the right heel. PLAN: Physical therapy is working with the patient with protected ambulation with a CAM walking boot on that right side and a walker. We will continue to follow the patient closely while in-house. TID: [id number] RECEIPT: [id number]
--- NOTE | 2025-02-02 13:00 | NUR ---
cm note spoke to Yancy leo at [facility]. and states pt is approved at [facility], whenever clears for dc.nurse updates
--- NOTE | 2025-02-02 14:13 | PN ---
[facility] PROGRESS NOTE Date of Service: Feb 02, 2025 Time of Service: 13:57 SUBJECTIVE: 01/28/25 - Patient seen at bedside in ED 10 with daughter. Patient afebrile and saturating well on room air. Patient is comfortable and in no acute distress. Urinalysis shows proteinuria, small occult blood, negative for leukocytes and nitrates. Remarkable labs: white count within normal limits, hemoglobin 8.1, platelets 90K, potassium 3.3 - replacement protocol in place, BUN 9, creatinine 0.98. Pending surgery recommendations. Pending Cardiology recommendations for continuing anticoagulation in the setting of patient left hematoma. 01/29/2025: Patient seen at bedside with daughter. Patient afebrile and saturating well on room air. She complains of pain and soreness on her left chest. The chest drain is in places that had 30ml blood in past 12 hours. The daughter mentions that Dr Vee, her primary surgeon, might come today to examine her. The patient is vitally stable. 01/30/2025: Patient seen at bedside with daughter. Patient afebrile and saturating well on room air. She complains of pain and soreness on her left chest. Dr Vee rounded yesterday and cleared her for discharge from surgery point of view. The patient is vitally stable. She is waiting for urology and podiatry consult. 01/31/2025: Patient seen at bedside with daughter. Patient afebrile and saturating well on room air. She complains of pain and soreness on her left chest. Podiatry visited yesterday and clipped her toe nails and examined her foot. Patient is vitally stable with 123/71 blood pressure. Podiatry recommended CAM boot for her, for which physical therapy is consulted. Urinalysis was ordered for urinary tract infection. General surgery saw the patient and recommended a ultrasound guided fine needle aspiration. 02/01/2025: Patient seen at bedside with daughter. Patient afebrile and saturating well on room air. She complains of pain and soreness on her left chest. Patient urinalysis came back positive for infection, therefore she is started on zosyn. She is planned for a cystogram today by urology. Patient is having the urge to cough but general surgery advised her to refrain from coughing. Started on guaifenesin and encourage adequate oral hydration. General surgery ordered ultrasound guided fine needle aspiration for fluid accumulation yesterday but the hematoma appeared solid and multiple attempts were made for aspiration but were unsuccessful. Surgery is following the patient. 02/02/2025: Patient seen at bedside with daughter. Patient afebrile and s aturating well on room air. She complains of pain and soreness on her left chest. Patient urinalysis came back positive for infection, therefore she is started on zosyn. She is planned for a cystogram today by urology. Patient is having the urge to cough but general surgery advised her to refrain from coughing. She is continued on guaifenesin/dextromethorphan and encouraged adequate oral hydration. Today the patient also complained of swelling and pain in her left knee, that started yesterday. She was given an ice packs and Tylenol. Orthopedic surgery is consulted and knee x-rays ordered. The patient is continuing on her ambulation with physical therapy. REVIEW OF SYSTEMS CONSTITUTIONAL: Denies fevers, chills, or night sweats. No unintentional weight loss reported. NEUROLOGICAL: Denies headache, amaurosis fugax, motor weakness, sensory deficit, vertigo/spinning sensation, gait abnormalities, or tremors. ENT: No hearing loss, otalgia, otorrhea, rhinitis, rhinorrhea, hoarseness, or sore throat. CARDIOVASCULAR: Denies any exertional angina, dyspnea on exertion, orthopnea, paroxysmal nocturnal dyspnea, palpitations, life-threatening arrhythmias, claudication. PULMONARY: Denies any shortness of breath, cough, phlegm/sputum, hemoptysis, pleuritic chest pain. SLEEP: Denies morning headaches, daytime somnolence or napping. Denies difficulty falling asleep, staying asleep, waking from sleep. Denies knowledge of snoring. GASTROINTESTINAL: Denies any type of dysphagia to either liquids or solids. Denies nausea, vomiting, pyrosis, early satiety, abdominal pain, diarrhea, constipation, or changes in stool consistency or caliber. Denies coffee-ground emesis, hematemesis, hematochezia, or melanotic stools. GENITOURINARY: Denies frequency, urgency, nocturia, hematuria or incontinence (Storage/Irritative symptoms.) Low urinary stream, straining to void, urinary intermittency or hesitancy, splitting of the voiding stream, terminal dribbling. ENDOCRINOLOGIC: Denies polyuria, polydipsia, polyphagia or heat/cold intoleran caitlyn. PHYSICAL EXAM GENERAL APPEARANCE: The patient is awake, alert, and oriented, in no acute cardiopulmonary distress. NEUROLOGICAL: Cranial nerves II-XII grossly intact. Motor is 5/5 in bilateral upper and lower extremities proximal to distal. No sensory deficits. HEENT: Face is symmetric. Pupils are equal and reactive. Extraocular movements are intact. NECK: Supple. No JVD. No thyromegaly. No submental, submandibular, pre- /postauricular, occipital or supraclavicular lymphadenopathy. CHEST: Normal chest expansion. No Telemetry. Hematoma drain on the left chest wall. Chest id tightly wrapped in bandage. LUNGS: Absence of any rales, rhonchi or any wheezing. CARDIOVASCULAR: Regular. S1 and S2 normal. No appreciable rubs, murmurs or gallops. ABDOMEN: Soft, nontender, and nondistended. There is no rebound, voluntary guarding, or rigidity. EXTREMITIES: Swelling and inflammation of left knee. Onychomycosis. SKIN: No skin breakdown. Vital Signs (last 8hr) Date Time Temp Pulse Resp B/P (MAP) Pulse Ox O2 Delivery O2 Flow Rate FiO2 02/02/25 08:00 98.1 110 18 144/79 95 Room Air LABS: Laboratory: Test 02/02/25 04:17 01/31/25 15:40 Range/Units White Blood Count 9.0 4.8-10.8 K/uL Red Blood Count 2.98 L 4.00-5.50 MIL/uL Hemoglobin 9.1 L 12.0-16.0 g/dL Hematocrit 27.4 L 36-48 % Mean Corpuscular Volume 91.9 79-99 fL Mean Corpuscular Hemoglobin 30.5 27.0-33.0 pg Mean Corpuscular Hemoglobin Concent 33.2 32.0-36.0 g/dL Red Cell Distribution Width 16.4 H 11.0-15.5 % Platelet Count 205 130-400 K/uL Mean Platelet Volume 12.5 H 7.5-10.5 fL Immature Granulocyte % (Auto) 0.8 0-1 % Neutrophils (%) (Auto) 71.7 40.0-77.0 % Lymphocytes (%) (Auto) 10.9 L 21.0-51.0 % Monocytes (%) (Auto) 11.8 3.0-13.0 % Eosinophils (%) (Auto) 4.0 0.0-8.0 % Basophils (%) (Auto) 0.8 0.0-5.0 % Neutrophils # (Auto) 6.5 1.8-7.7 K/uL Lymphocytes # (Auto) 1.0 1.0-4.8 K/uL Monocytes # (Auto) 1.1 H 0.1-1.0 K/uL Eosinophils # (Auto) 0.36 0.00-0.70 K/uL Basophils # (Auto) 0.07 0.00-0.20 K/uL Absolute Immature Granulocyte (auto 0.07 0-1 K/uL Nucleated Red Blood Cells 0.0 0.0-0.19 % Sodium Level 140 136-145 mmol/L Potassium Level 3.7 3.5-5.1 mmol/L Chloride Level 107 101-111 mmol/L Carbon Dioxide Level 27 21-32 mmol/L Blood Urea Nitrogen 8 7-18 mg/dL Creatinine 0.5 0.5-1.0 mg/dL Glomerular Filtration Rate Calc 91 >90 mL/min Random Glucose 96 70-105 mg/dL Total Calcium 8.0 L 8.5-10.1 mg/dL Magnesium Level 2.00 1.80-2.40 mg/dL Urine Color YELLOW YELLOW Urine Appearance CLEAR CLEAR Urine pH 6.0 5.0-8.0 Urine Specific [place] OVER 1.001-1.031 Urine Protein 50 H NEGATIVE mg/dL Urine Glucose (UA) NEGATIVE NEGATIVE mg/dL Urine Ketones NEGATIVE NEGATIVE mg/dL Urine Occult Blood LARGE H NEGATIVE Urine Nitrate 2+ H NEGATIVE Urine Bilirubin NEGATIVE NEGATIVE mg/dL Urine Urobilinogen 0.2 0.2-1.0 mg/dL Urine Leukocyte Esterase NEGATIVE NEGATIVE Nain/uL Urine RBC 26-50 H 0-1 /HPF Urine WBC 51-100 H 0-1 /HPF Urine Squamous Epithelial Cells RARE 0-2 /HPF Urine Bacteria RARE None Seen /HPF Current Medications Medications (Trade) Dose Ordered Sig/Rex Route PRN Reason Start Time Stop Time Status Last Admin Dose Admin Acetaminophen (TYLenol 325MG TAB) 650 mg Q6H PRN PO TEMPERATURE GREATER THAN 101.5 01/28/25 05:30 02/27/25 05:29 02/02/25 03:29 650 MG Acetaminophen (TYLenol 500MG TAB) 500 mg Q4H PRN PO PAIN LEVEL 1 TO 3 02/02/25 09:30 03/04/25 09:29 02/02/25 09:27 500 MG Atorvastatin Calcium (LIPItor 40MG) 40 mg HS PO 01/28/25 21:00 02/27/25 20:59 02/01/25 19:51 40 MG Cefazolin Sodium (ANCEF 1 gm vial) 1 gm ONCE STAT IVP 01/28/25 02:45 01/28/25 02:48 DC 01/28/25 03:11 1 GM Cetirizine HCl (ZYRtec 5 MG TABLET) 10 mg DAILY PO 01/30/25 09:00 03/01/25 08:59 02/02/25 09:10 10 MG Famotidine (Pepcid 20mg Tab) 20 mg DAILY PO 01/28/25 09:00 02/27/25 08:59 02/02/25 09:11 20 MG Guaifenesin (MUCinex 600 MG TABLET.ER) 600 mg BID PO 02/01/25 21:00 02/02/25 08:56 DC 02/01/25 19:52 600 MG Guaifenesin/ Dextromethorphan (MUCinex DM 1 EACH TAB.SR.12H) 1 each BID PO 02/02/25 09:00 03/04/25 08:59 02/02/25 09:12 1 EACH Home Med (Home Medication) (D-Methorphan Hb/Prometh HCl (Promethazine... Q4HPRN PRN PO cough 01/29/25 12:30 02/28/25 12:29 Hydralazine HCl (APRESOLine 20MG INJ) 10 mg Q6H PRN IV For:SBP above 160;DBP above 90 01/28/25 05:30 02/27/25 05:29 Lactated Ringer's 1,000 ml @ 75 mls/hr [id number] IV 01/28/25 05:30 02/27/25 05:29 02/02/25 06:09 75 MLS/HR Lactated Ringer's (Lactated Ringers 1000ml) 2,000 ml BOLUS STAT IV 01/27/25 23:05 01/27/25 23:09 DC 01/28/25 00:18 2,000 ML Lisinopril (Prinivil 40mg) 40 mg DAILY PO 01/30/25 09:00 03/01/25 08:59 02/02/25 09:11 40 MG Magnesium Sulfate 50 ml @ 0 mls/hr PROTOCOL PRN IV MAGNESIUM PROTOCOL 01/29/25 09:00 02/28/25 08:59 02/01/25 09:06 25 MLS/HR Metoprolol Tartrate (loprESSOR) 12.5 mg BID PO 01/28/25 09:00 01/29/25 10:30 DC 01/29/25 08:43 12.5 MG Metoprolol Tartrate (loprESSOR) 25 mg BID PO 01/29/25 21:00 02/28/25 20:59 02/02/25 09:10 25 MG Morphine Sulfate (morPHINE 2MG SYG) 2 mg Q4H PRN IVP SEVERE PAIN (7-10) 01/28/25 05:30 02/02/25 08:29 DC Ondansetron HCl (zoFRAN 4MG INJ) 4 mg Q6H PRN IV NAUSEA/VOMITING 01/28/25 05:30 02/27/25 05:29 Piperacillin Sod/ Tazobactam Sod (Zosyn 3.375gm+NS 50ml) 3.375 gm Q8H IV 02/01/25 09:30 02/01/25 15:32 DC 02/01/25 09:30 3.375 GM Piperacillin Sod/ Tazobactam Sod (Zosyn 3.375gm+NS 50ml) 3.375 gm Q8H IV 02/01/25 18:30 02/11/25 18:29 02/02/25 09:08 3.375 GM Potassium Chloride 100 ml @ 50 mls/hr AD PRN IV POTASSIUM PROTOCOL 01/28/25 05:30 02/27/25 05:29 01/29/25 08:44 50 MLS/HR Potassium Chloride (K-Dur/Klor-Con 20meq) 20 meq AD PRN PO POTASSIUM PROTOCOL 01/30/25 06:30 03/01/25 06:29 02/02/25 09:27 20 MEQ Potassium Chloride (KCl 10% Elixir 20meq/15ml) 20 meq AD PRN PO POTASSIUM PROTOCOL 01/30/25 06:30 03/01/25 06:29 Trazodone HCl (DesyREL/OlepTRO) 50 mg HS PO 01/29/25 21:00 02/28/25 20:59 02/01/25 19:53 50 MG DIAGNOSTICS / RADIOLOGY: [ ] ASSESSMENT: Sepsis, POA Left chest wall hematoma, POA Hypokalemia, POA Bilateral pleural effusions, POA AFib on chronic anticoagulation with Eliquis, history of thyroid cancer hypertension hyperlipidemia PLAN: Left chest wall hematoma Check blood culture, follow up with the results. No growth for 5 days. Reviewed patient's CT of the chest that shows left chest wall hematoma and pleural effusions. As needed analgesia with morphine. JUANITO drain to bulb suction Replace potassium per hospital protocol Supplemental oxygen to maintain O2 saturation greater 92%. General surgery ordered ultrasound guided fine needle aspiration for fluid accumulation. The hematoma appeared solid and multiple attempts were made for aspiration but were unsuccessful. Patient is having the urge to cough but general surgery advised her to refrain from coughing. Started on guaifenesin/dextromethorphan and encourage adequate oral hydration. Atrial Fibrillation Rhythm is atrial fibrillation to atrial flutter to sinus rhythm Metoprolol 25mg by mouth twice daily. Hold patient's DOAC (eliquis) at this time due to known hematoma , resume DOAC when recommended by General surgery Hydralazine 10 mg IV every 4 hours for systolic blood pressure greater than 160 mmHg Atorvastatin 40 mg by mouth once daily Urinary Retention Consulted urology. CT Urogram was done. The CT showed filling of the bladder, no masses seen. Large soft tissue hematoma in the left anterior chest wall was seen with a surgical drain in place. It also showed large stable biloculated cystic lesion within the pelvis Urology followed up and ordered CT Pelvis. Her noncontrast CT scan shows a large cystic structure above the bladder with a Mccray catheter in the bladder. The urologist have reviewed the images have ordered now for her to have a cystogram to establish whether there is any communication between the cystic pelvic mass in her bladder at all. Awaiting results of cystogram Urinalysis came back positive for infections and she is started on zosyn (day2). Onychomycosis The mortgage broker debrided the patient's toenails today extensively reducing the length and girth of pink healthy tissue and removed subungual debris with a nail clipper and dermal curette without incident. The mortgage broker ordered the patient a medium CAM walking boot and have her use it to ambulate with it on the right side, full weight bearing with a walker with physical therapy to address her plantar fasciitis, heel spur syndrome on that right side. Physical therapy said that they will continue to work with ambulating the patient with a CAM walking boot on the right and a walker to address her plantar fasciitis. Left Knee swelling Patient has developed left knee swelling. Knee x-ray ordered Orthopedic surgery consulted Hypomagnesemia Magnesium 2.0 Replace magnesium as per protocol GI prophylaxis, famotidine DVT prophylaxis, Efrain's and SCDs PHYSICIAN RESIDENT STATEMENT I was present with the resident during the History and Physical exam and I have reviewed the resident's note. This case was discussed with the resident and I agree with the history, physical exam and medical decision making as documented. Additions/exceptions/observations were directly added to the notes. Efrain Daley MD, SYED M MD Feb 02, 2025 14:13
--- NOTE | 2025-02-02 15:15 | HMCIMG ---
Left knee radiographs, frontal, lateral, oblique and skyline views. CLINICAL INDICATION: Knee inflammation. FINDINGS: There is no evidence of fracture or dislocation. There is osteopenia of the osseous structure. There is no narrowing of the knee joint but there are chondrocalcinosis is no osteoarthropathy. No destructive bony lesions are identified. The surrounding soft tissues are within normal limits there is posterior bowing of the popliteal artery suggesting of patient may have a possible Garay's cyst I would recommend left knee sonogram. There is atherosclerotic change of popliteal artery with calcified plaque. 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 No acute fracture or dislocation
--- NOTE | 2025-02-02 17:33 | NUR ---
CYSTOGRAM PATIENT HAD CYSTOGRAM DONE 02/01. CALLED RADIOLOGY 1259 TO GET CLARIFICATION ON THE IMAGING UNDER " RENAL SCAN W/MEDICATION NM". RADIOLOGY SAID IT IS THE CYSTOGRAM, BUT IT IS UNDER THAT NAME. THEY SAY THEY WOULD READ IT STAT. CALLED 'S OFFICE AT 1300 BUT ANSWERING SERVICE SAID THEY'D BE BACK BY 1430. CALLED AGAIN 1556 BUT WASN'T ABLE TO GET THROUGH. AT 1703 I CALLED AGAIN AND WAS ABLE TO GET THROUGH CHECK PROCESSOR. THEY INFORMED ME DOCTOR ONTIVEROS WOULD GET BACK TO ME.
--- NOTE | 2025-02-02 21:01 | NUR ---
PER NURSE, WILL BRING PATIENT TO CT LATER ON.
--- NOTE | 2025-02-02 21:43 | DS ---
CHIEF COMPLAINT: Pelvic cystic structure. INTERVAL HISTORY: The patient had Mccray catheter in place draining clear urine. Both the CT scan with CT urogram and CT cystogram demonstrate a cystic collection in the pelvis completely from her bladder. This is not a bladder diverticulum or related to any radiographically visible bladder pathology. ASSESSMENT: * Pelvic cystic structure. * Normal bladder with no extravasation on cystogram. PHYSICAL EXAMINATION: The patient's vital signs on examination today show a temperature of 98. Blood pressure is 140/80, with a pulse of 82. RECOMMENDATIONS: * The patient's recommendations are for the patient to continue Mccray catheter drainage as needed during her current hospitalization. * For the patient to have Gynecology consultation regarding the pelvic cyst that is noted on CT scan. * Urology will sign off at this time. Thank you for the opportunity of providing followup consultation on your patient. The patient explained. TID: [id number] RECEIPT: [id number]
[2025-02-03] VITALS (7 sets, daily range): BP systolic 101–154; BP diastolic 59–85; PULSE 76–87; RESP 17–24; TEMP 97.7–98.5; O2SAT 97
--- NOTE | 2025-02-03 01:32 | NUR ---
NEW ONSET WHEEZING/SHORTNESS OF BREATH PATIENT C/O SOB AND WHEEZING AT THIS TIME, BILATERAL LUNGS SOUNDS SHOW WHEEZING X ALL LUNG ASHLEY. VITAL SIGNS TAKEN, SPO2 WITHIN NORMAL LIMITS, AT THIS TIME PATIENT IS SATURATING 98%. [facility] [place] NOTIFIED. ORDERED STAT CXR AND ONE TIME ALBUTEROL TREATMENT. AT THIS TIME, PATIENT RECEIVING ALBUTEROL TREATMENT. PENDING CXR.
[2025-02-03] MEDS: ALBUTEROL 0.083% 2.5 MG/3 ML INH IH ONE (01:37)
--- NOTE | 2025-02-03 03:30 | HMCIMG ---
EXAM: CR Chest, 1 view CLINICAL HISTORY: Shortness of breath. Wheezing. Desaturation. COMPARISON: Chest radiograph dated 01/27/2025. FINDINGS: Stable small pleural effusion on the left side. Questionable drainage tubes overlie the left thorax. Stable cardiac size. Interval mild pulmonary vascular congestion. No pneumothorax. Mild atherosclerotic aorta. No acute osseous abnormality. IMPRESSION: Stable small pleural effusion on the left side. Questionable drainage tubes overlie the left thorax. Stable cardiac size. Interval mild pulmonary vascular congestion. /[place]
[2025-02-03 06:02] LABS: NUCLEATED RED BLOOD CELLS 0.0 % (0.0-0.19); PLATELET COUNT (AUTO) 292 K/uL (130-400); RED BLOOD CELL COUNT(AUTO) 3.51 MIL/uL (4.00-5.50); RED CELL DISTRIBUTION WIDTH 16.4 % (11.0-15.5); WHITE BLOOD COUNT (AUTO) 9.7 K/uL (4.8-10.8)
[2025-02-03 06:19] LABS: CREATININE 0.5 mg/dL (0.5-1.0); GLOMERULAR FILTR. RATE CALC 91.0 mL/min (>90); GLUCOSE,RANDOM 98.0 mg/dL (70-105); SODIUM SERUM 142.0 mmol/L (136-145); UREA NITROGEN, BLOOD 11.0 mg/dL (7-18)
--- NOTE | 2025-02-03 06:42 | HMCIMG ---
EXAMINATION: SOFT TISSUE ULTRASOUND OF THE LEFT KNEE. CLINICAL HISTORY: Palpable swelling. COMPARISON: None. TECHNIQUE: Transverse and longitudinal images were obtained. FINDINGS: There is a cystic lesion in the medial aspect of the left popliteal fossa that measures 4.3 x 1.4 x 4.0 cm in craniocaudal, AP, and transverse dimensions respectively with internal echoes. There is a cystic lesion that measures 4.8 x 1.7 x 4.7 cm in the supra patellar region with internal echoes. The popliteal vessels appear normal. 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 Complex supra patellar collection. This may be due to infection and/or hematoma. /[place]
--- NOTE | 2025-02-03 10:16 | HMCIMG ---
Exam Type: CT of both knees without contrast Clinical Information: Evaluate Garay's cyst versus calcified mass of left knee Comparison: None available Technique: Spiral axial images were performed through both knees. Both sagittal and coronal reconstructions were performed. CT Dose Index (CTDI): 14.40 mGy Dose Length Product (DLP): 498.40 total Findings: Exam of the knees are without evidence of fracture, or dislocation.. There is chondrocalcinosis suggesting of osteoarthropathy. There is a large suprapatellar joint effusion. There is osteopenia of the osseous structure. The surrounding soft tissues are preserved. Specifically, no periarticular fluid collections are seen. The subcutaneous compartments are intact. The popliteal fossae show no significant abnormalities. The visualized muscles are also within normal limits. There is atherosclerotic change of popliteal artery with calcified plaque. IMPRESSION: No acute fracture or dislocation There is a large suprapatellar joint effusion which is amenable for ultrasound-guided arthrocentesis. 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
--- NOTE | 2025-02-03 10:35 | PN ---
SUBJECTIVE: The patient is a very pleasant 84-year-old diabetic white female. She is followed for plantar fasciitis to the right heel. The patient has been evaluated for ambulation with a walker by the Physical Therapy Service. The patient has been evaluated by the Urology Service. Her urinalysis came back positive for infection. She was started on Zosyn and she is being evaluated by the Urology Service. Orthopedic Service has been consulted for evaluation of pain and swelling to her left knee. The patient is being evaluated for ambulation with a CAM walking boot on the right with a walker. REVIEW OF SYSTEMS: CONSTITUTIONAL: No chills. No fevers. No night sweats. No nausea, no vomiting, no diarrhea. Pain to the left knee. HEENT: No problems with eyes, ears, nose, or throat. CARDIOVASCULAR: Having no current chest pain. RESPIRATORY: No shortness of breath. GENITOURINARY: She is being followed by Urology for urinary tract infection. She has been started on Zosyn. GASTROINTESTINAL: No dysphagia. ENDOCRINE: Diabetes. PSYCHIATRY: Denies depression. MUSCULOSKELETAL: She has pain to the left knee. She has pain to the right heel. OBJECTIVE: On examination today, pain upon palpation to the right heel. ASSESSMENT: Plantar fasciitis, heel spur syndrome, urinary tract infection, being followed by nephrology, left knee pain, being followed by Orthopedic Service. PLAN: Physical therapy to ambulate the patient, protected weightbearing with a CAM walking boot on the right with a walker. Continue to follow the patient closely while in-house. TID: [id number] RECEIPT: [id number]
[2025-02-03] MEDS ORDERED: PoTASSium chl 10% ELIXIR 20MEQ 20 MEQ/15 ML UDCUP PO PRN (13:30)
[2025-02-03] MEDS ORDERED: MAGNESIUM 2GM PREMIX 50ML 50 ML IV PRN (13:30)
[2025-02-03] MEDS ORDERED: PoTASSium chloRIDE 20MEQ ER 20 MEQ ERTAB PO PRN (13:30)
[2025-02-03] MEDS: LACTULOSE 20 GM/30 ML UDCUP PO ONE (13:30)
--- NOTE | 2025-02-03 14:49 | DS ---
Discharge Summary Hospital Course Summary: Ms. James is a 84-year-old female who presented to the emergency department on 01/27/2025 with complaints of fever. The patient had a past medical history of atrial fibrillation, thyroid cancer, ankle tumor, left breast cancer status post mastectomy, arthritis, hypertension, hyperlipidemia. Based on the laboratory evaluation and imaging studies patient was diagnosed with sepsis, left chest wall hematoma, bilateral pleural effusions and admitted to the hospital on 01/28/2025. General surgery was consulted for evaluation of her left chest wall hematoma. Cardiology was consulted for evaluation of her atrial fibrillation and continuation of her anticoagulation in the setting of a chest wall hematoma. In collaboration with General surgery and Cardiology, the decision was made to hold her anticoagulation and monitor her chest wall hematoma. On 01/31/2025 an attempt was made to aspirate the hematoma unsuccessfully. Patient was also noted to have urinary retention for which Urology was consulted. Imaging revealed a large biloculated cyst in her pelvis that was having mass effect on the urinary bladder. Urology recommended the patient follow up with Gynecology for the evaluation of the biloculated cystic mass Patient was also noted to have a knee swelling on her left leg which was further evaluated using x-ray, soft tissue ultrasound, lower extremity CT scan. Orthopedics was consulted for the evaluation of left knee swelling. Following the imaging studies they diagnosed the swelling as joint effusion but recommended to monitor instead of aspiration for the moment. On 02/03/2025, the patient was clinically stable with signs of recovery for her conditions. The decision was made to discharge the patient to her snf with advice to follow up with her primary care physician and gynecology for fu rther evaluation. Compound Filler(s): CONSULTATION REPORT Name: CLAIRE JAMES Acct: [id number] MR: [id number] : 1940 Admit Date: 01/28/25 MARISSA NELSON MD [place] [id number] [address] [facility] CONSULTATION NOTE Date Patient Seen: Jan 28, 2025 Time of Visit: 15:42 Reason for Consultation: [AFib and anticoagulation recommendations ] History of Present Illness: [84-year-old female who follows in the cardiology clinic with Dr. Davalos and has a past medical history of hypertension, hyperlipidemia, paroxysmal atrial fibrillation on chronic anticoagulation, breast cancer status post recent left mastectomy who presented to [facility] due to left anterior swelling and chest discomfort following her recent mastectomy. Patient states following her mastectomy she began noticing significant pain on her left chest swelling and bruising. She presented for further evaluation and CT of the chest shows large soft tissue hematoma in the left anterior chest wall involving the left pectoralis major muscle and subcutaneous there. Trace pleural effusions and lower lobe compressive atelectasis bilaterally. Surgery was consulted and is currently undergoing compressive bandages over her left chest with no plans for surgical intervention at this time. On evaluation the bedside she is resting comfortably in no acute distress. Review of telemetry reveals intermittent episodes of atrial fibrillation in sinus rhythm. She denies palpitations, dyspnea, or any other anginal equivalents. She is currently rate controlled in no acute distress and cardiology was consulted for further recommendations regarding her anticoagulation in the setting of her left chest hematoma and AFib. ] Past Medical History: [Refer to HPI ] Past Surgical History: [Recent mastectomy ] Family History: [Noncontributory ] Habits: [Never] smoker. [Denies] alcohol consumption. [Denies] illicit drug use Review of Systems: Review of 12 point systems is negative except per HPI Physical Examination: GENERAL: [No acute distress.] HEAD: [Normal with no signs of head trauma.] EYES: [PERRLA, EOMI, conjunctiva and sclera normal.] ENT: [Hearing grossly intact, normal oropharynx.] NECK: [Supple without JVD. There is no tenderness, lymphadenopathy, or masses. No thyromegaly. Normal carotid upstrokes without bruits.] LUNGS: [Clear breath sounds bilaterally.. No wheezes, or rhonchi.] HEART: [Normal rate and rhythm. Normal S1 and S2 without mumurs, gallop or rub.] VASC: [Peripheral pulses +2 bilaterally.] ABD: [Bowel sounds normal, soft, nontender, no masses, no organomegaly. No audible bruits.] : [Not examined] LYMPH: [No lymphadenopathy noted.] EXT: [No clubbing, cyanosis or edema.] SKIN: [Left chest swelling, point tenderness with a pressure dressing).] NEURO: [Awake, alert, and oriented x3. No focal sensory or strength deficits noted.] Vital Signs (last 8hr) Date Time Temp Pulse Resp B/P (MAP) Pulse Ox O2 Delivery O2 Flow Rate FiO2 01/28/25 15:26 98.2 81 20 140/88 97 Room Air 01/28/25 09:51 95 16 134/64 98 Room Air* 0 21 01/28/25 07:47 98.2 96 16 140/75 98 Room Air* 0 21 Laboratory: [ ] Hematology Labs: Test 01/27/25 22:53 Range/Units White Blood Count 8.7 4.8-10.8 K/uL Red Blood Count 2.67 L 4.00-5.50 MIL/uL Hemoglobin 8.1 L 12.0-16.0 g/dL Hematocrit 24.8 L 36-48 % Mean Corpuscular Volume 92.9 79-99 fL Mean Corpuscular Hemoglobin 30.3 27.0-33.0 pg Mean Corpuscular Hemoglobin Concent 32.7 32.0-36.0 g/dL Red Cell Distribution Width 17.4 H 11.0-15.5 % Platelet Count 90 L 130-400 K/uL Mean Platelet Volume 11.9 H 7.5-10.5 fL Immature Granulocyte % (Auto) 0.9 0-1 % Neutrophils (%) (Auto) 87.7 H 40.0-77.0 % Lymphocytes (%) (Auto) 3.5 L 21.0-51.0 % Monocytes (%) (Auto) 6.2 3.0-13.0 % Eosinophils (%) (Auto) 1.5 0.0-8.0 % Basophils (%) (Auto) 0.2 0.0-5.0 % Neutrophils # (Auto) 7.6 1.8-7.7 K/uL Lymphocytes # (Auto) 0.3 L 1.0-4.8 K/uL Monocytes # (Auto) 0.5 0.1-1.0 K/uL Eosinophils # (Auto) 0.13 0.00-0.70 K/uL Basophils # (Auto) 0.02 0.00-0.20 K/uL Absolute Immature Granulocyte (auto 0.08 0-1 K/uL Nucleated Red Blood Cells 0.0 0.0-0.19 % Chemistry Labs: Test 01/27/25 22:53 Range/Units Sodium Level 136 136-145 mmol/L Potassium Level 3.3 L 3.5-5.1 mmol/L Chloride Level 101 101-111 mmol/L Carbon Dioxide Level 28 21-32 mmol/L Blood Urea Nitrogen 9 7-18 mg/dL Creatinine 0.5 0.5-1.0 mg/dL Glomerular Filtration Rate Calc 91 >90 mL/min Random Glucose 114 H 70-105 mg/dL Lactic Acid Level 1.2 0.8-2.5 mmol/L Total Calcium 8.3 L 8.5-10.1 mg/dL Total Bilirubin 1.0 0.2-1.0 mg/dL Aspartate Amino Transf (AST/SGOT) 29 10-37 U/L Alanine Aminotransferase (ALT/SGPT) 21 12-78 U/L Alkaline Phosphatase 68 50-136 U/L Troponin I High Sensitivity 8 4-50 ng/L B-Type Natriuretic Peptide 139 H 0-100 pg/mL Total Protein 5.5 L 6.0-8.3 g/dL Albumin 2.4 L 3.5-5.0 g/dL Procalcitonin 0.20 0.05-0.5 ng/mL Coagulation Labs: Test 01/28/25 07:24 Range/Units Prothrombin Time 11.2 9.6-11.6 SEC Prothromb Time International Ratio 1.06 0.85-1.15 Activated Partial Thromboplast Time 26.6 26.3-35.5 SEC Diagnostics / Radiology: [Copy/Paste Echos/Imaging Report here] Assessment: [Left chest hematoma Breast cancer status post left mastectomy Paroxysmal atrial fibrillation on chronic anticoagulation ] Plan: [ Patient is currently rate controlled off anticoagulation due to a recent left chest hematoma Surgery has been consulted and at this time she is undergoing compressive therapy with no plans for surgical intervention Given her left chest hematoma defer the use of her home anticoagulation until hematoma resolves Resume her home beta-adryan and patient will need close outpatient cardiology follow up with Dr. Davalos in 1-2 weeks post discharge Please keep patient on telemetry and monitor/replace electrolytes as needed No indication further cardiovascular testing at this time Thank you for this consult. Cardiology will sign off at this time Marissa nelson MD] MARISSA NELSON MD Jan 28, 2025 15:47 Electronically Signed by: MARISSA NELSON MD01/28/25 1547 Electronically Co-Signed by: CONSULTATION REPORT Name: CLAIRE JAMES Acct: [id number] MR: [id number] : 1940 Admit Date: 01/28/25 MAX MYERS MD [facility] [address] [place] [id number] GENERAL SURGERY CONSULTATION NOTE DATE OF CONSULTATION: Jan 28, 2025 TIME OF CONSULTATION: 16:35 CONSULTING SERVICE: Max Myers MD REQUESTING PHYSICAIN: [ ] REASON FOR CONSULTATION: [ ] Fever Left breast hematoma HISTORY OF PRESENT ILLNESS: [ ] 84-year-old lady who presented with fever Patient recently underwent a left mastectomy by Dr. Vee According to the family she had developed an hematoma and she was seen in the hospital about a week ago She has had 3 units of blood transfused last week She also has a JUANITO drain in place The drain has been draining however she developed fever and was brought to the hospital Workup revealed left anterior chest wall hematoma PAST MEDICAL HISTORY: [ [AFib on chronic anticoagulation with Eliquis, thyroid cancer 2016, cystic ankle tumor, arthritis, hypertension, hyperlipidemia PAST SURGICAL HISTORY: [ ] Thyroidectomy Left knee replacement Left mastectomy FAMILY HISTORY: [ ] No family history of hypertension or diabetes SOCIAL HISTORY: [ ] No smoking No alcohol Current Medications Medications (Trade) Dose Ordered Sig/Rex Route Start Time Stop Time Status Last Admin Dose Admin Atorvastatin Calcium (LIPItor 40MG) 40 mg HS PO 01/28/25 21:00 02/27/25 20:59 Cefazolin Sodium (ANCEF 1 gm vial) 1 gm ONCE STAT IVP 01/28/25 02:45 01/28/25 02:48 DC 01/28/25 03:11 1 GM Famotidine (Pepcid 20mg Tab) 20 mg DAILY PO 01/28/25 09:00 02/27/25 08:59 01/28/25 08:35 20 MG Lactated Ringer's 1,000 ml @ 75 mls/hr [id number] IV 01/28/25 05:30 02/27/25 05:29 01/28/25 08:36 75 MLS/HR Lactated Ringer's (Lactated Ringers 1000ml) 2,000 ml BOLUS STAT IV 01/27/25 23:05 01/27/25 23:09 DC 01/28/25 00:18 2,000 ML Metoprolol Tartrate (loprESSOR) 12.5 mg BID PO 01/28/25 09:00 02/27/25 08:59 01/28/25 08:35 12.5 MG Allergies: Coded Allergies: No Known Allergies (Unverified Allergy, Unknown, 12/10/24) REVIEW OF SYSTEMS: FAITH HEALER: [Denies headaches or blurring of vision.] RESP: [No cough, chest pain or SOB.] CVS: [No palpitaions.] GI: [No abdominal pain AGATA: [No dysuria or hematuria.] Musculoskeletal: [No swelling or joint pain.] BACK: [No pain or swelling.] All other systems are reviewed and essentially negative pertinent positives in HPI. PHYSICAL EXAMINATION: GENERAL: [Patient is lying comfortably in bed, not in any obvious distress.] HEAD: [Normal with no signs of head trauma.] EYES: [Not pale not jaundiced afebrile to touch.] ENT: [ Normal.] NECK: [Supple,no tenderness,no lymphadenopathy,no masses,no thyromegaly ,no bruits, no JVD.] LUNGS: [Clear breath sounds bilaterally. No wheezes, rales, or rhonchi.] Left chest wall Incision intact Minimal swelling with bruising JUANITO in place with dark blood HEART: [Regular rate and rhythm. Normal S1 and S2, without murmurs, rub or gallop.] ABD: Benign : [Normal, no suprapubic tenderness.] LYMPH: [No lymphadenopathy noted.] EXT: [ Warm soft, non tender.] SKIN: [ No rashes or lesions.] NEURO: [ Awake Alert and oriented x3.] Vital Signs (last 8hr) Date Time Temp Pulse Resp B/P (MAP) Pulse Ox O2 Delivery O2 Flow Rate FiO2 01/28/25 15:26 98.2 81 20 140/88 97 Room Air 01/28/25 13:30 Room Air* 0 21 01/28/25 09:51 95 16 134/64 98 Room Air* 0 21 LABORATORY: [ ] Hematology Labs: Test 01/28/25 15:50 Range/Units White Blood Count 4.8 # 4.8-10.8 K/uL Red Blood Count 2.54 L 4.00-5.50 MIL/uL Hemoglobin 7.7 L 12.0-16.0 g/dL Hematocrit 23.9 L 36-48 % Mean Corpuscular Volume 94.1 79-99 fL Mean Corpuscular Hemoglobin 30.3 27.0-33.0 pg Mean Corpuscular Hemoglobin Concent 32.2 32.0-36.0 g/dL Red Cell Distribution Width 17.5 H 11.0-15.5 % Platelet Count 74 L 130-400 K/uL Mean Platelet Volume 12.1 H 7.5-10.5 fL Immature Granulocyte % (Auto) 0.6 0-1 % Neutrophils (%) (Auto) 71.5 40.0-77.0 % Lymphocytes (%) (Auto) 13.1 L 21.0-51.0 % Monocytes (%) (Auto) 9.0 3.0-13.0 % Eosinophils (%) (Auto) 5.2 0.0-8.0 % Basophils (%) (Auto) 0.6 0.0-5.0 % Neutrophils # (Auto) 3.4 1.8-7.7 K/uL Lymphocytes # (Auto) 0.6 L 1.0-4.8 K/uL Monocytes # (Auto) 0.4 0.1-1.0 K/uL Eosinophils # (Auto) 0.25 0.00-0.70 K/uL Basophils # (Auto) 0.03 0.00-0.20 K/uL Absolute Immature Granulocyte (auto 0.03 0-1 K/uL Nucleated Red Blood Cells 0.0 0.0-0.19 % Chemistry Labs: Test 01/27/25 22:53 Range/Units Sodium Level 136 136-145 mmol/L Potassium Level 3.3 L 3.5-5.1 mmol/L Chloride Level 101 101-111 mmol/L Carbon Dioxide Level 28 21-32 mmol/L Blood Urea Nitrogen 9 7-18 mg/dL Creatinine 0.5 0.5-1.0 mg/dL Glomerular Filtration Rate Calc 91 >90 mL/min Random Glucose 114 H 70-105 mg/dL Lactic Acid Level 1.2 0.8-2.5 mmol/L Total Calcium 8.3 L 8.5-10.1 mg/dL Total Bilirubin 1.0 0.2-1.0 mg/dL Aspartate Amino Transf (AST/SGOT) 29 10-37 U/L Alanine Aminotransferase (ALT/SGPT) 21 12-78 U/L Alkaline Phosphatase 68 50-136 U/L Troponin I High Sensitivity 8 4-50 ng/L B-Type Natriuretic Peptide 139 H 0-100 pg/mL Total Protein 5.5 L 6.0-8.3 g/dL Albumin 2.4 L 3.5-5.0 g/dL Procalcitonin 0.20 0.05-0.5 ng/mL Coagulation Labs: Test 01/28/25 07:24 Range/Units Prothrombin Time 11.2 9.6-11.6 SEC Prothromb Time International Ratio 1.06 0.85-1.15 Activated Partial Thromboplast Time 26.6 26.3-35.5 SEC DIAGNOSTICS / RADIOLOGY: [Copy/Paste Echos/Imaging Report here] ASSESSMENT: [] Status post mastectomy Hematoma Fever Query cause PLAN: [Continue with IV antibiotics Bulky dressing to left chest wall No evidence of active bleed No need for surgery Hematoma is resolving and the drain is functioning Ongoing fever workup Cardiac consult for AFib/MAX Mcfarlane MD Jan 28, 2025 16:41 Electronically Signed by: MAX MYERS MD01/28/25 1642 Electronically Co-Signed by: CONSULTATION REPORT Name: CLAIRE JAMES Acct: [id number] MR: [id number] : 1940 Admit Date: 01/28/25 MELVA MENENDEZ [place] [address] [address] HISTORY OF PRESENT ILLNESS: The patient is very pleasant 84-year-old white female admitted to the hospital on 01/27/2025 with fever, shortness of breath, swelling to left shoulder status post mastectomy. She presented with fever, tachycardia. She is status post 2 weeks from bilateral mastectomy. Atrial fibrillation, arthritis, breast cancer, type 2 diabetes, gastroesophageal reflux disease, elevated cholesterol, hypertension, hypothyroidism, neoplasm of the thyroid, sleep apnea, appendectomy, hysterectomy, mastectomy, left knee replacement, thyroidectomy, history of plantar fasciitis, heel spurs. The patient is concerned of heel pain on her right. She is concerned of elongated thickened toenails to her feet bilaterally. The patient has shown negative status for type A influenza, type B influenza, COVID, and Group A strep. The patient is being followed for left chest hematoma. Breast cancer status post mastectomy. Paroxysmal atrial fibrillation on chronic anticoagulation therapy. The patient was evaluated by General Surgery Service and evaluated for left anterior chest wall hematoma. PAST MEDICAL HISTORY: Atrial fibrillation, on chronic anticoagulation therapy with Eliquis, thyroid cancer, cystic ankle tumor, arthritis, hypertension, hyperlipidemia, history of right heel spur. PAST SURGICAL HISTORY: Appendectomy, hysterectomy, mastectomy, left knee replacement, thyroidectomy. REVIEW OF SYSTEMS: CONSTITUTIONAL: No chills, no fevers, no night sweats, no nausea, vomiting, no diarrhea. HEENT: No problems with her eyes or ears, nose or throat. CARDIOVASCULAR: The patient has atrial fibrillation, on chronic anticoagulation therapy. ENDOCRINE: Thyroid cancer. PSYCHIATRIC: Denies any depression. MUSCULOSKELETAL: Ankle cyst, plantar fasciitis, heel spur syndrome on the right. INTEGUMENT: She has onychomycosis, onychogryphosis to her nails. PHYSICAL EXAMINATION: EXTREMITIES: She has palpable pedal pulses. She has elongated, thickened brittle graft toenails x 10 with subungual debris. She has pain on palpation in the plantar medial aspect of the right heel. She has good pedal and ankle joint range of motion. Reflexes diminished. Muscle strength intact. LABORATORY DATA: White count 7.1, H and H 9.8, 30.0, platelets 146, neutrophils 67.0, BUN and creatinine level 7 and 0.5, glucose 91. ASSESSMENT: Status post mastectomy, the patient is being followed for anterior wall hematoma. Atrial fibrillation on chronic anticoagulation therapy with Eliquis. Thyroid cancer, cystic angle tumor, arthritis, hypertension, hyperlipidemia, onychomycosis, onychomycosis, right plantar fasciitis, right heel spur syndrome, status post mastectomy, left knee replacement, thyroidectomy. PLAN: I debrided the patient's toenails today extensively reducing the length and girth of pink healthy tissue and removed subungual debris x 10 with a nail clipper and dermal curette without incident. I will order the patient a medium CAM walking boot and have her use it to ambulate with it on the right side, full weightbearing with a walker with physical therapy to address her plantar fasciitis, heel spur syndrome on that right side. From my standpoint, the patient will be transferred to [facility] when okay with other services. TID: [id number] RECEIPT: [id number] Electronically Signed by: MELVA MENENDEZ DP02/03/25 1039 Electronically Co-Signed by: CONSULTATION REPORT Name: CLAIRE JAMES Acct: [id number] MR: [id number] : 1940 Admit Date: 01/28/25 DILSHAD ONTIVEROS MD [place] [address] [place] [address] REQUESTING PHYSICIAN: Efrain Daley MD REASON FOR CONSULTATION: Urinary retention. HISTORY OF PRESENT ILLNESS: This is an 84-year-old female admitted to the hospital because of a 2-week history of fever. The patient is status post mastectomy left side 01/21/2025, and noted to have flap hematoma anterior chest wall. Consultation with Urology requested because of urinary retention. The patient apparently was in snf, a [place] [facility] facility with Mccray catheter in place. The patient's Mccray catheter is draining satisfactorily. Her noncontrast CT scan shows a large cystic structure above the bladder with a Mccray catheter in the bladder. CT scan was ordered by me. I have reviewed the images and I have ordered now for her to have a cystogram to establish whether there is any communication between the cystic pelvic mass in her bladder at all. The patient is encountered lying in bed comfortably offering no complaints. Mccray catheter draining clear urine. No blood. ALLERGIES: Recorded as none. MEDICATIONS: Include promethazine, Eliquis, p.r.n. morphine for pain, Zosyn, IV antibiotics, hydralazine, atorvastatin. Additional home medications include amlodipine, Eliquis, cetirizine and lisinopril. PAST MEDICAL HISTORY: Atrial fibrillation, on Eliquis; hypertension; hyperlipidemia; arthritis. PAST SURGICAL HISTORY: Mastectomy, cystic ankle tumor, and thyroid cancer. Past surgical history is significant for thyroidectomy in 2017, knee replacement and mastectomy. SOCIAL HISTORY: Does not smoke or drink. FAMILY HISTORY: Negative for kidney stones. REVIEW OF SYSTEMS: No shortness of breath or chest pain. Her appetite is poor. She has no headaches or dizziness. No nosebleeds. She has some difficulty walking. No joint pain, joint swelling, or limitation of movement. PHYSICAL EXAMINATION: GENERAL: Elderly female, in no acute distress. VITAL SIGNS: Temperature is 98, blood pressure is 127/62, with a pulse of 90. NECK: No adenopathy or supraclavicular masses palpable. LUNGS: Basilar crepitations. She has stigmata with Olu-Phipps drains of left mastectomy. ABDOMEN: Full, soft and nontender. BACK: No CVA tenderness. EXTERNAL GENITALIA: Mccray catheter in place draining clear urine. LABORATORY DATA: The patient's available laboratory data reviewed in detail. CT scan of the abdomen and pelvis. ASSESSMENT: * Urinary retention, catheter dependent. 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 * Pelvic mass urinary retention. RECOMMENDATIONS: * The patient will have a cystogram performed. * Maintain Mccray catheter in place. * The patient's concerns and questions have been answered. Thank you for the opportunity of providing Urology consultation on your patient. ADDENDUM Dictation regarding the patient's laboratory data once available will be dictated as well. White count is 8.7, hematocrit is 24, platelet count is 90. The patient's sodium is 141, potassium 3.3 while her BUN and creatinine are 9/0.4. Her urinalysis shows clear yellow urine, specific gravity of 1.016, pH of 6. She has some red cells and white cells in the urine. No bacteria. Nitrites are negative. TID: [id number] RECEIPT: [id number] Electronically Signed by: Electronically Co-Signed by: Procedure(s): [facility] [address] [place] [id number] IMAGING REPORT Signed PATIENT: CLAIRE JAMES MR#: [id number] : 1940 SEX: F AGE: 84 LOCATION: [facility] ORDER 01 STATUS: REG ER REPORT#: [id number] SERVICE 99 REASON: cough ORDERING PHYSICIAN: SABINE TRIANA MD PROCEDURE: CXR1VW - CHEST 1VW EXAM: CR Chest, 1 view CLINICAL HISTORY: Cough. COMPARISON: Chest radiograph dated 01/21/2025. FINDINGS: Mild cardiomegaly. Mild atherosclerotic aorta. No acute infiltrate, effusion, or pneumothorax. No acute osseous abnormality. IMPRESSION: Mild cardiomegaly. No acute infiltrate, effusion, or pneumothorax. No gross interval changes. /[place] DICTATED BY: CRISTELA SANDERS Jr., MD DATE: 01/28/25132 ELECTRONICALLY SIGNED BY: CRISTELA SANDERS Jr., MD DATE: 01/28/[address] [place] [address] [id number] IMAGING REPORT Signed PATIENT: CLAIRE JAMES MR#: [id number] : 1940 SEX: F AGE: 84 LOCATION: [facility] ORDER STATUS: [facility] REPORT#: [id number] SERVICE REASON: left chest hematoma ORDERING PHYSICIAN: SABINE TRIANA MD PROCEDURE: CHEST W - CT CHEST W/CONTRAST EXAM: Post-contrast CT examination of the chest CLINICAL HISTORY: Pain. TECHNIQUE: Postcontrast thin collimated axial CT images of the chest were obtained, with sagittal and coronal reformatted images also submitted. A CT scan is done according to ALARA (As Low as Reasonably Achievable). COMPARISON: CT chest dated 01/21/2025. FINDINGS: Trace pleural effusions and lower lobe compressive atelectasis bilaterally. Scattered pulmonary nodules, the largest measuring up to 5 mm in the left lingula. No pneumothorax. No pericardial effusion. The cardiac size is within normal limits. Calcific atherosclerotic disease in the thoracic aorta and coronary arteries. 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 The pulmonary artery is normal in caliber. No mediastinal, axillary, or supraclavicular lymphadenopathy. 1.5 cm cortical cyst in the left renal midpole. Tiny hiatus hernia. No acute bony abnormality is evident. Old healed fracture around the anterior aspect of the left 3rd, 4th, 5th, and 6th ribs. Degenerative osseous changes. There is a large soft tissue hematoma in the left anterior chest wall, involving the left pectoralis major muscle and subcutaneous layer, with drainage tubes in place. It hematoma measures 5 x 19 x 19 cm in the anterior-posterior, transverse, and craniocaudal dimensions, respectively. IMPRESSION: There is a large soft tissue hematoma in the left anterior chest wall, involving the left pectoralis major muscle and subcutaneous layer, with drainage tubes in place. Mild interval reduction in size of this hematoma compared to the previous CT dated 01/21/2025. The remaining findings are grossly unchanged. Trace pleural effusions and lower lobe compressive atelectasis bilaterally. Scattered pulmonary nodules, the largest measuring up to 5 mm in the left lingula. Recommended follow-up CT chest at 12 months. 1.5 cm cortical cyst in the left renal midpole. Tiny hiatus hernia. 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 Old healed fracture around the anterior aspect of the left 3rd, 4th, 5th, and 6th ribs. /[place] DICTATED BY: CRISTELA SANDERS Jr., MD DATE: 01/28/25425 ELECTRONICALLY SIGNED BY: CRISTELA SANDERS Jr., MD DATE: 01/28/[address] [place] [address] IMAGING REPORT Signed PATIENT: CLAIRE JAMES MR#: [id number] : 1940 SEX: F AGE: 84 [facility] ORDER 2300 STATUS: ADM IN REPORT#: [id number] SERVICE 0600 REASON: CYSTOGRAM-DIVERTICULUM BLADDER ORDERING PHYSICIAN: DILSHAD ONTIVEROS MD PROCEDURE: PELVIS WWO - CT PELVIS W/WO CONTRAST EXAMINATION: CT Pelvis without IV contrast CLINICAL HISTORY: Patient undergoing cystogram to evaluate suspected bladder diverticulum. COMPARISON: CT dated January 29, 2025. CONTRAST: Without intravenous contrast. TECHNIQUE: Axial computed tomography images of the pelvis without intravenous contrast. Sagittal and coronal reformatted images submitted for interpretation. FINDINGS: APPENDIX: No evidence of acute appendicitis on CT examination. PERITONEUM: No free fluid. No free air. LYMPH NODES: No lymphadenopathy is evident. REPRODUCTIVE: The uterus is not visualized, likely postsurgical status. Both ovaries are not visualized separately. VASCULATURE: No evidence of abdominal aortic aneurysm. BONES: No aggressive appearing osseous lesion. No acute osseous pathology is evident. URINARY BLADDER: Stable, well-defined bilocular cystic lesion within the pelvis measuring approximately 8.3 x 12.1 x 11.2 cm, posterior to the urinary bladder and abutting and displacing the rectosigmoid colon. The cystic lesion does not fill with contrast. Therefore, this does not represent a bladder diverticulum A Mccray catheter within the urinary bladder lumen. Air pockets in the bladder lumen are related to recent catheterization. No extravasation of contrast from the bladder. No evidence of bladder wall perforation. No intraluminal filling defect or lesion. BOWEL: Rectosigmoid colon displaced by an adjacent pelvic cystic lesion. No bowel obstruction. No wall thickening or pericolonic inflammatory changes. IMPRESSION: Stable bilocular cystic lesion in the pelvis measuring approximately 8.3 x 12.1 x 11.2 cm. This lesion does not fill with contrast and, therefore, does not represent a bladder diverticulum. Ovarian neoplasm should be excluded. No intraluminal filling defect or lesion in the urinary bladder. No evidence of contrast extravasation or bladder perforation on CT cystogram. /[place] DICTATED BY: JOESPH COLVIN MD DATE: 02/01/251856 ELECTRONICALLY SIGNED BY: JOESPH COLVIN MD DATE: 02/01/251856 [address] [address] IMAGING REPORT Signed PATIENT: CLAIRE JAMES MR#: [id number] : 1940 SEX: F AGE: 84 LOCATION: 4DH ORDER 1311 STATUS: ADM IN REPORT#: [id number] SERVICE 1309 REASON: ASIPIRATION OF LEFT BREAST DUE TO FLUID ACCUMLATION ORDERING PHYSICIAN: DMITRY VEE MD PROCEDURE: FNA - US FINE NEEDLE ASP IR Ultrasound guided left BREAST HEMATOMA ASPIRATION INDICATION: Post mastectomy left breast hematoma for aspiration COMPARISON: None available FINDINGS: After informed consent, the left breast was prepped and draped in the usual sterile fashion. Using ultrasound guidance and sterile technique, the cyst was located. Both superficial and deep anesthetic was given with 1% Lidocaine. An 18-gauge needle was then advanced into the hematoma and multiple attempts were made only few cc of thick old blood was aspirated. This was attempted with a 14-gauge needle and again 3 to 4 cc of thick hematoma aspirated. IMPRESSION: Hematomas appears to be not liquid but solid and multiple attempts were made to aspiration but unsuccessful. This was discussed with the referring physician. DICTATED BY: WM CORMIER MD DATE: 01/31/251521 ELECTRONICALLY SIGNED BY: WM CORMIER MD DATE: 01/31/251527 [place] [address] IMAGING REPORT Signed PATIENT: CLAIRE JAMES MR#: [id number] : 1940 SEX: F AGE: 84 LOCATION: [facility] ORDER 1223 STATUS: ADM IN REPORT#: [id number] SERVICE 1219 REASON: knee inflammation ORDERING PHYSICIAN: HUA GARCÍA MD PROCEDURE: KNEE 4V LT - KNEE 4+VWS LT Left knee radiographs, frontal, lateral, oblique and skyline views. CLINICAL INDICATION: Knee inflammation. FINDINGS: There is no evidence of fracture or dislocation. There is osteopenia of the osseous structure. There is no narrowing of the knee joint but there are chondrocalcinosis is no osteoarthropathy. No destructive bony lesions are identified. The surrounding soft tissues are within normal limits there is posterior bowing of the popliteal artery suggesting of patient may have a possible Garya's cyst I would recommend left knee sonogram. There is atherosclerotic change of popliteal artery with calcified plaque. 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 No acute fracture or dislocation DICTATED BY: WM CORMIER MD DATE: 02/02/251510 ELECTRONICALLY SIGNED BY: WM CORMIER MD DATE: 02/02/251514 [facility] [address] [place] [id number] IMAGING REPORT Signed PATIENT: CLAIRE JAMES MR#: [id number] : 1940 SEX: F AGE: 84 LOCATION: 4[facility] ORDER 09 STATUS: ADM IN REPORT#: [id number] SERVICE 08 REASON: Garay Cyst ORDERING PHYSICIAN: ANTONELLA BHATTI MD PROCEDURE: SOFT LOW E - US SOFT TISSUE LOWER EXTREMITY EXAMINATION: SOFT TISSUE ULTRASOUND OF THE LEFT KNEE. CLINICAL HISTORY: Palpable swelling. COMPARISON: None. TECHNIQUE: Transverse and longitudinal images were obtained. FINDINGS: There is a cystic lesion in the medial aspect of the left popliteal fossa that measures 4.3 x 1.4 x 4.0 cm in craniocaudal, AP, and transverse dimensions respectively with internal echoes. There is a cystic lesion that measures 4.8 x 1.7 x 4.7 cm in the supra patellar region with internal echoes. The popliteal vessels appear normal. 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 Complex supra patellar collection. This may be due to infection and/or hematoma. /[place] DICTATED BY: JOESPH COLVIN MD DATE: 02/03/25740 ELECTRONICALLY SIGNED BY: JOESPH COLVIN MD DATE: 02/03/25740 [facility] [address] [place] [address] IMAGING REPORT Signed PATIENT: CLAIRE JAMES MR#: [id number] : 1940 SEX: F AGE: 84 LOCATION: 4DH ORDER 34 STATUS: ADM IN REPORT#: [id number] SERVICE 28 REASON: evaluate garay's cyst vs calcified mass of left knee ORDERING PHYSICIAN: HUA GARCÍA MD PROCEDURE: LOW EXT WO - CT LOW EXT W/O CONTRAST Exam Type: CT of both knees without contrast Clinical Information: Evaluate Garay's cyst versus calcified mass of left knee Comparison: None available Technique: Spiral axial images were performed through both knees. Both sagittal and coronal reconstructions were performed. CT Dose Index (CTDI): 14.40 mGy Dose Length Product (DLP): 498.40 total Findings: Exam of the knees are without evidence of fracture, or dislocation.. There is chondrocalcinosis suggesting of osteoarthropathy. There is a large suprapatellar joint effusion. There is osteopenia of the osseous structure. The surrounding soft tissues are preserved. Specifically, no periarticular fluid collections are seen. The subcutaneous compartments are intact. The popliteal fossae show no significant abnormalities. The visualized muscles are also within normal limits. There is atherosclerotic change of popliteal artery with calcified plaque. IMPRESSION: No acute fracture or dislocation There is a large suprapatellar joint effusion which is amenable for ultrasound-guided arthrocentesis. 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 DICTATED BY: WM CORMIER MD DATE: 02/03/25 1010 ELECTRONICALLY SIGNED BY: WM CORMIER MD DATE: 02/03/[address] [address] IMAGING REPORT Signed PATIENT: CLAIRE JAMES MR#: [id number] : 1940 SEX: F AGE: 84 [facility] ORDER 6 STATUS: ADM IN REPORT#: [id number] SERVICE 5 REASON: WHEEZING, SHORTNESS OF BREATH WITHOUT DESATURATION ORDERING PHYSICIAN: GRACE ZAVALETA PROCEDURE: CXR1VW - CHEST 1VW EXAM: CR Chest, 1 view CLINICAL HISTORY: Shortness of breath. Wheezing. Desaturation. COMPARISON: Chest radiograph dated 01/27/2025. FINDINGS: Stable small pleural effusion on the left side. Questionable drainage tubes overlie the left thorax. Stable cardiac size. Interval mild pulmonary vascular congestion. No pneumothorax. Mild atherosclerotic aorta. No acute osseous abnormality. IMPRESSION: Stable small pleural effusion on the left side. Questionable drainage tubes overlie the left thorax. Stable cardiac size. Interval mild pulmonary vascular congestion. /[place] DICTATED BY: CRISTELA SANDERS Jr., MD DATE: 02/03/25429 ELECTRONICALLY SIGNED BY: CRISTELA SANDERS Jr., MD DATE: 02/03/25429 Assessment/Plan: ASSESSMENT: Sepsis, POA Left chest wall hematoma, POA Hypokalemia, POA Bilateral pleural effusions, POA AFib on chronic anticoagulation with Eliquis, Acute urinary retention Left Knee Joint effusion Biloculated cystic mass in the pelvis history of thyroid cancer hypertension hyperlipidemia Discharge Instructions: You were admitted for evaluation of a left chest wall hematoma after mastectomy, atrial fibrillation, urinary retention caused by a loculated pelvic mass pressing on your bladder, toenail fungal infection (onychomycosis), and left knee joint effusion. You were also treated for a urinary tract infection during your stay. Your condition has now improved, and you are stable to return to your nursing facility. Continue all prescribed medications exactly as directed. Continue using ice packs for your knee swelling. The nursing staff will assist with wound care, mobility, and monitoring your heart rhythm and urinary status. It is important to follow up with Gynecology as soon as possible to evaluate your pelvic mass. Watch for signs of worsening pain, swelling, fever, chest discomfort, difficulty urinating, or any new or concerning symptoms, and notify the nursing staff or seek medical care right away if these occur. Follow up with your primary care physician within 3-5 days. Follow up with Gynecology for the evaluation of your pelvic mass within 2 weeks. Home Medications: Reported Medications Trazodone HCl (Trazodone HCl) 50 Mg Tablet, 1 TAB PO HS for 30 Days, #30 TAB 0 Refills 01/29/25 D-Methorphan Hb/Prometh HCl (Promethazine-Dm Syrup) 6.25 Mg-15 Mg/5 Ml Syrup, 5 ML PO Q4HPRN PRN for cough for 4 Days, #120 ML 0 Refills 12/10/24 Cetirizine HCl (Cetirizine HCl) 10 Mg Tablet, 10 MG PO DAILY, TAB 12/10/24 Apixaban (Eliquis) 5 Mg Tablet, 5 MG PO BID, TAB 12/10/24 Lisinopril (Lisinopril) 40 Mg Tablet, 40 MG PO DAILY, TAB 12/10/24 Discontinued Reported Medications Amlodipine Besylate (Amlodipine Besylate) 5 Mg Tablet, 5 MG PO DAILY, TAB 12/10/24 Time spent arranging discharge: 1-30 minutes ATTESTATION BY PHYSICIAN I have seen and examined the patient. I reviewed the documentation, medical decision making, and treatment plan as noted by the resident provider above. I agree with the findings and plan of care. Efrain Daley MD, HEMA MD Feb 03, 2025 14:49
--- NOTE | 2025-02-03 18:45 | NUR ---
DISCHARGE PT sitting in bed w/ eyes open A&Ox4 denies pain or discomfort, family @ bedside. Discharge instructions given verbally and written to PT and family, both verbally acknowledged understanding. I.V. removed intact. PT escorted to Facility van via wheelchair by facility sales representative gas service.
--- NOTE | 2025-02-04 21:52 | CONS ---
CONSULTING PHYSICIAN: Dr. Efrain Daley. CONSULTING SERVICE: Hospitalist service. REASON FOR CONSULTATION: Left knee pain. HISTORY OF PRESENT ILLNESS: An 84-year-old lady who has been admitted for left knee pain and also the patient has been admitted for UTI and the patient recently had surgery for a breast, I think way back on 01/15, and she is also following up for that. Ortho has been consulted for left knee pain and swelling. This pain and swelling started on 12/10. She had been admitted for similar complaints in the past and she got aspiration of the left knee done by Dr. Charles, but that did not reveal any infection. No history of any fevers or chills. PAST MEDICAL HISTORY: Positive for left breast cancer and hypothyroidism. PAST SURGICAL HISTORY: Previous surgeries including thyroid cancer and removal of thyroid, then history of tracheostomy. Then recently on 01/15, she had a left breast mastectomy done. She also had carpal tunnel surgeries done and rotator cuff surgeries for the shoulder done. ALLERGIES: None. SOCIAL HISTORY: Does not smoke. Does not use alcohol or illegal drugs. HOME MEDICATIONS: Reviewed. FAMILY HISTORY : Nothing significant. REVIEW OF SYSTEMS: Twelve-system review of systems is obtained and is negative. PHYSICAL EXAMINATION: GENERAL: The patient is moderately built and nourished, slightly obese. LATEST VITAL SIGNS: Heart rate 86, respiratory rate is 15, blood pressure 138/77, oxygen saturation 98% on room air. HEENT: Normocephalic and atraumatic. NECK: No engorged vein. CHEST: She has some dressings done on the left side of the chest with some drain bulbs coming out. ABDOMEN: Soft. PELVIS: No tenderness on pelvis compression or distraction. EXTREMITIES: Examination of the left knee, left lower extremity shows left knee some swelling present, mild warmth present. No obvious erythema seen. No discharge seen. Left knee range of motion is slightly limited as compared to the right. Motor, sensory grossly intact. Toes are warm and pink. Good capillary refill is present. LABORATORY DATA: Laboratory investigations were also reviewed. DIAGNOSTIC STUDIES: On the CT scan, left knee shows some changes of arthritis and wear and tear seen with some knee effusion also present. ASSESSMENT AND PLAN: An 84-year-old lady with left knee chronic degenerative changes with differential diagnosis of: * Possible flare-up of knee arthritis and causing the symptoms of swelling and pain to the left knee. * Some history of inflammatory joint disorder causing her symptoms. * Risk of infection, like septic arthritis. I did discuss the possibility of all the three and told the treatment options available. The patient states that since admission, she is getting better. The definitive option is to do an aspiration of the left knee joint, and by that, we can confirm whether it is infected or not. I told her that would be the definitive procedure to confirm the diagnosis of infection or not. The patient says that since she is getting better, she did not want to get it done. As long as she is getting better, she would like to continue conservative management. If she gets worsen up, then they can call me back and I can come and do the aspiration. Otherwise, Ortho will continue to follow peripherally. TID: [id number] RECEIPT: [id number]
--- NOTE | 2025-02-05 22:00 | HMCIMG ---
EXAM: 99m Tc-MAG3 Renal dynamic study with LASIX. CLINICAL HISTORY: For the evaluation of right kidney viability PROCEDURE: 10.0 mCi of 99mTc-MAG3 was injected intravenously, followed by immediate flow and dynamic images acquired using the posterior detector. FINDINGS: Left Kidney appears normal in size, shape, and location, and shows delayed perfusion and cortical retention. The PCS appears normal. No ureteric activity noted. Right Kidney: appears normal in size, shape, and location, and shows delayed perfusion and cortical retention. The PCS appears normal. No ureteric activity noted. The Urinary Bladder activity is not visualized. Background activity is normal. IMPRESSION: Renogram done using 99mTc-MAG3 reveals: Both kidneys - retention of tracer activity in bilateral kidneys - suggestive of renal parenchymal disease. /[place]
== END 2025-02-03 18:35 | DRG 872 ==
LOC: EDH 22:42 → EDHIP 01-28 05:18 → 4DH 01-28 13:30
PROVIDERS: ADMIT Internal Medicine; ATTEND Internal Medicine
PROC: 30233N1 Transfusion of Nonautologous Red Blood Cells into Peripheral Vein, Percutaneous Approach (ICD-10-PCS; 2025-01-28)
PROC: 0H9U3ZZ Drainage of Left Breast, Percutaneous Approach (ICD-10-PCS; principal; 2025-01-31)
DX: A41.9 Sepsis, unspecified organism (principal); J90 Pleural effusion, not elsewhere classified; J98.11 Atelectasis; N39.0 Urinary tract infection, site not specified; S20.212A Contusion of left front wall of thorax, initial encounter; E87.6 Hypokalemia; Z79.01 Long term (current) use of anticoagulants; I48.0 Paroxysmal atrial fibrillation; C73 Malignant neoplasm of thyroid gland; E83.42 Hypomagnesemia; I10 Essential (primary) hypertension; B35.1 Tinea unguium; E11.9 Type 2 diabetes mellitus without complications; E78.00 Pure hypercholesterolemia, unspecified; G47.30 Sleep apnea, unspecified; Z96.652 Presence of left artificial knee joint; K21.9 Gastro-esophageal reflux disease without esophagitis; M79.89 Other specified soft tissue disorders; R19.00 Intra-abdominal and pelvic swelling, mass and lump, unspecified site; M72.2 Plantar fascial fibromatosis; N32.9 Bladder disorder, unspecified; N64.89 Other specified disorders of breast; Z79.899 Other long term (current) drug therapy; Z85.3 Personal history of malignant neoplasm of breast; Z85.850 Personal history of malignant neoplasm of thyroid; Z90.13 Acquired absence of bilateral breasts and nipples; Z90.49 Acquired absence of other specified parts of digestive tract; Z90.710 Acquired absence of both cervix and uterus; Y83.8 Other surgical procedures as the cause of abnormal reaction of the patient, or of later complication, without mention of misadventure at the time of the procedure
CPT/HCPCS: 10005; 36415; 36430; 71045; 71260; 72194; 73564; 73700; 74178; 76882; 78700; 80048; 80053; 81001; 82306; 82607; 83605; 83735; 83880; 84100; 84145; 84484; 85025; 85027; 85610; 85730; 86850; 86900; 86901; 86923; 87040; 87086; 87186; 87426; 87804; 87880; 93005; 94640; 99285; A9562; G0378; J0690; J2543; J3475; J3480; J7120; P9016; Q9967; A4215

== ENCOUNTER 2025-05-26 10:00 | Emergency (ER) | payer MEDICARE ==
[~2025-05-26] VITALS: Ht 162.6 cm; Wt 61.2 kg
--- NOTE | 2025-05-26 10:20 | ERN ---
General Chief Complaint: Urinary Retention Stated Complaint: BLADDER DISTENTION, PELVIC DISCOMFORT Time Seen by MD: 10:02 Source: patient, EMS History of Present Illness Initial Comments Patient is a an 84-year-old female coming in complaining of urine retention. Per patient she has not been able to void correctly. Nursing states that the Mccray kept coming out. Allergies: Coded Allergies: No Known Allergies (Unverified Allergy, Unknown, 12/10/24) Home Meds Reported Medications Zinc Sulfate (Zinc Sulfate) 50 Mg Zinc (220 Mg) Capsule, 50 MG PO DAILY, CAP 02/19/25 Acetaminophen (Tylenol) 325 Mg Tablet, 2 TAB PO Q8H PRN for MODERATE PAIN for 5 Days, #30 TAB 0 Refills 02/19/25 Tamoxifen Citrate (Tamoxifen Citrate) 20 Mg Tablet, 20 MG PO DAILY, TAB 02/19/25 Promethazine HCl (Promethazine HCl) 6.25 Mg/5 Ml Syrup, 5 ML PO Q4HPRN PRN for NAUSEA/VOMITING, #150 ML 0 Refills 02/19/25 Paroxetine HCl (Paroxetine HCl) 10 Mg Tablet, 10 MG PO HS, TAB 02/19/25 Multivitamin with Minerals (Daily Vitamin Formula-Minerals) 1 Each Tablet, 1 TAB PO DAILY for 30 Days, #30 TAB 0 Refills 02/19/25 Polyethylene Glycol 3350 (Miralax) 17 Gram Powd.pack, 1 PACKET PO DAILY for constipation for 2 Days, #2 PACKET 0 Refills dissolve in water 02/19/25 Metoprolol Tartrate (Metoprolol Tartrate) 25 Mg Tablet, 25 MG PO BID, TAB 02/19/25 Levothyroxine Sodium (Levothyroxine) 125 Mcg Capsule, 1 CAP PO DAILY for 30 Days, #30 CAP 0 Refills 02/19/25 Lactulose (Lactulose) 10 Gram/15 Ml Solution, 30 ML PO BID PRN for CONSTIPATION, #500 ML 0 Refills 02/19/25 Apixaban (Eliquis) 2.5 Mg Tablet, 1 TAB PO BID for 30 Days, #60 TAB 0 Refills 02/18/25 Docusate Sodium (Docusate Sodium) 100 Mg Capsule, 1 CAP PO BID for constipation for 7 Days, #14 CAP 0 Refills 02/18/25 Cyanocobalamin (Vitamin B-12) (B-12) 1,000 Mcg Tablet, 1000 MCG PO DAILY, TAB 02/18/25 Clotrimazole (Clotrimazole) 1 % Cream..g., 1 APPL TP DAILY for 7 Days, #15 GM 0 Refills apply to affected area(s) TO TOE NAILS 02/18/25 Cetirizine HCl (Cetirizine HCl) 10 Mg Tab.chew, 1 TAB PO HS for allergy symptoms for 30 Days, #30 TAB 0 Refills 02/18/25 Atorvastatin Calcium (Atorvastatin Calcium) 40 Mg Tablet, 1 TAB PO HS 02/18/25 Ascorbic Acid (Ascorbic Acid) 500 Mg Tablet, 500 MG PO BID, TAB 02/18/25 Trazodone HCl (Trazodone HCl) 50 Mg Tablet, 1 TAB PO HS for 30 Days, #30 TAB 0 Refills 01/29/25 Lisinopril (Lisinopril) 40 Mg Tablet, 40 MG PO DAILY, TAB HOLD IF SBP IS LESS THAN 100, HOLD IF DBP IS LESS THAN 60. PULSE IS LESS THAN 60. 12/10/24 Past Medical History Past Medical History: A-Fib, Arthritis, Cancer, High Cholesterol, Hypertension Medical History Other: ALANIS, LEFT BREAST CA, SLEEP APNEA Past Surgical History: Other Surgical History Other: LEFT BREAST MAST.LEFT KNEE Physical Exam Physical Exam Dictation VITAL SIGNS: Reviewed. GENERAL APPEARANCE: Alert, oriented x3, no acute distress, obese. HEAD AND FACE: Non-traumatic. EYES: PERRL, pink conjunctivas, eyelid no trauma, anterior chamber clear. EARS: Pinnas intact and no signs of trauma or erythema. Ear canals clear and no discharge. TMs no erythema. NOSE: No discharge, no bleeding. OROPHARYNX: Mouth normal, teeth no caries, tongue pink. Pharynx clear, no erythema. Tonsils no exudates, no abscesses noted. Mucous membrane moist. NECK: Supple, non-tender, no thyromegaly, no masses, no JVD, no bruits. BREAST: Deferred. CHEST: No tenderness, no crepitus, no paradoxical movement, no retractions. LUNGS: Clear, well-ventilated, symmetric, no rales, no wheezing, no rhonchi, no stridor, good breath sounds bilaterally. HEART: Regular rate, regular rhythm, no murmur, no gallops. VASCULAR: No peripheral edema. ABDOMEN: Soft, positive bowel sounds, lower abdominal distended, no guarding, nontender, no rebound, no masses no hepatomegaly, no splenomegaly, no Stevenson's sign, no hernias. RECTAL: Deferred. GENITAL: Deferred. NEUROLOGICAL: Normal speech, gross motor function intact, gross sensory function intact. MUSCULOSKELETAL: Neck nontender, full range of motion, back nontender, full range of motion. EXTREMITIES: Nontender, full range of motion. SKIN: Color pink, dry, no turgor, no rash, no lacerations, no abrasions, no contusions. LYMPHATICS: Deferred. Results Laboratory and Microbiology Labs Reviewed?: Yes MDM MDM: Differential diagnosis: Mccray catheter problem, urine retention, Rationale: Tests considered and ordered secondary to shared decision making include: Previous outside records reviewed: Old ER visits. Risk of complication and/or morbidity or mortality of patient management: None Medications-Per medication reconciliation Need for hospitalization: Patient does not meet criteria for hospitalization. Need for emergency major/minor surgery: No Patient is an 84-year-old female coming in complaining of urine retention. Per EMS patient has been having issues with a his Mccray catheter. Bladder scan did show 300 mL of urine in the bladder. Mccray catheter was exchanged good urine output. Patient will be discharged in stable condition with a diagnosis of urine retention and Mccray catheter malfunction. ED Course Vital Signs Date Time Temp Pulse Resp B/P (MAP) Pulse Ox O2 Delivery O2 Flow Rate FiO2 05/26/25 10:01 98.2 80 14 138/73 96 Room Air 0 DX & DISP Disposition: Discharge Departure Impression: Primary Impression: Mccray catheter present Additional Impression: Urinary retention Condition: Stable Additional Instructions: FOLLOW-UP WITH PRIMARY CARE PROVIDER IN 1 TO 2 DAYS. TAKE MEDICATIONS DIRECTED HERE IN THE EMERGENCY ROOM. OKAY TO CONTINUE HOME MEDICATIONS UNLESS OTHERWISE DISCUSSED DURING YOUR VISIT IN THE EMERGENCY ROOM TODAY. RETURN TO YOUR NEAREST EMERGENCY ROOM IF SYMPTOMS WORSEN OR IF THERE IS NO IMPROVEMENT. CALL 911 IF YOU NEED IMMEDIATE ASSISTANCE. TAKE TYLENOL [id number] NEEDED AND IF NO CONTRAINDICATIONS ARE PRESENT. INCREASE ORAL HYDRATION. A WOUND CULTURE OR URINE CULTURE WAS ORDERED HERE IN THE EMERGENCY ROOM DEPARTMENT PLEASE FOLLOW-UP WITH PRIMARY CARE PROVIDER AND ADVISE THEM TO GET REPORTS FROM OUR FACILITY. IF YOU HAD ANY SG WRAP/SPLINTS THAT WERE APPLIED HERE, PLEASE DO NOT REMOVE THEM UNTIL YOU SEE YOUR PRIMARY CARE OR SPECIALTY. Referrals: Referrals: KARRIE CRAWFORD MD (PCP) Time of Disposition: 10:34 NIC BARAJAS MD May 26, 2025 10:20
--- NOTE | 2025-05-26 10:56 | NUR ---
[facility] INFORMED OF TRANSPORT BACK TO FACILITY
--- NOTE | 2025-05-26 11:45 | NUR ---
[facility] ARRIVAL TIME
[2025-05-26 12:07] VITALS: BP 121/70; PULSE 60; RESP 14; TEMP 98.2; O2SAT 96
== END 2025-05-26 12:07 | disposition home or self-care (01) ==
LOC: EDH 10:00
DX: R33.9 Retention of urine, unspecified (principal); E78.00 Pure hypercholesterolemia, unspecified; I10 Essential (primary) hypertension; M19.90 Unspecified osteoarthritis, unspecified site; Z79.01 Long term (current) use of anticoagulants; Z79.890 Hormone replacement therapy; Z79.899 Other long term (current) drug therapy; Z85.3 Personal history of malignant neoplasm of breast
CPT/HCPCS: 51702; 99284